=== PATIENT | male | born 1995 | race African-American/Black ===

== ENCOUNTER 2021-10-24 11:16 | Inpatient (IN) | payer OTHER, SELFPAY ==
[2021-10-24] VITALS (14 sets, daily range): BP systolic 105–136; BP diastolic 66–94; PULSE 89–102; RESP 12–18; TEMP 36.7–37.8; O2SAT 96–98; BMI 24.4
--- NOTE | 2021-10-24 11:26 | CT_ITS ---
WS: [id number] CT ANGIOGRAM CEREBRAL AND CAROTID ARTERIES HISTORY: r arm and facial droop TECHNIQUE: CT angiogram is performed of the carotid and cerebral arteries. During arterial injection imaging is obtained from the skull vertex to the aortic arch in 1.25 mm imaging. Coronal and sagittal reformats are submitted. Additional multi planar reformats of the carotid and cerebral arteries are submitted, MIP imaging also reviewed. NASCET criteria utilized. [facility] at least one of these dose optimization techniques: automated exposure control; mA and/or kV adjust ment per patient size (includes targeted exams where dose is matched to clinical indication); or iter ative reconstruction. CONTRAST: Omnipaque 350; 75 mL IV. DLP: 1710.58 mGy.cm COMPARISON: None available. Carotid Angiogram: Right carotid: Common carotid artery: Proximal common carotid artery is normal. Internal carotid artery: No plaque or stenosis. External carotid artery: Patent. Left carotid: Common carotid artery: Arises normally from the aorta. No significant plaque or stenosis. Internal carotid artery: No plaque or stenosis. External carotid artery: Patent. Right vertebral artery: Unremarkable. Left vertebral artery: Unremarkable. Arises normally from the subclavian artery. Subclavian arteries: No stenosis or significant abnormality. Upper thorax: Normal. Thyroid gland: Normal. Prominent bilateral adenoid tissues and tonsils. Bilateral cervical chain reactive lymph nodes. Osseous structures: Unremarkable. CEREBRAL ANGIOGRAM: Intracranial vertebral arteries: Normal with no significant atherosclerosis. Basilar artery: No significant stenosis or occlusion. No aneurysm. Intracranial Internal carotid arteries: Demonstrates no significant stenosis or plaque. Middle cerebral arteries: Focal area of nonenhancement involving the RIGHT M1 segment. Very small hakan iber vessel. Distal to the M1 segment into artery is also very small caliber. No thrombus was identif ied in this location on the CT or the MRI. LEFT MCA is normal caliber. Anterior cerebral arteries and ACOM: Very small caliber RIGHT A1 segment also. There is a small amoun t of flow still present. Normal LEFT A1 and A2 segments. No aneurysm. Posterior cerebral arteries and PCOM's: Normal. Dural venous sinuses are normally enhancing. Mastoid air cells: Normal. Paranasal sinuses: Small mucous retention cysts in the RIGHT maxillary sinus. Calvarium: Normal. CT/CT angio headneck* [id number] IMPRESSION: 1. Occluded RIGHT M1 segment. Very small caliber vessel with no luminal enhanc ement. No acute thrombus was noted on the recent MRI or CT head. This may be du e to spasm or congenitally small artery. The RIGHT A1 segment is also very smal l but there is still enhancement and it is patent. Etiologies to consider are t hrombus, congenitally small artery, arteritis and spasm. 2. No cervical carotid artery stenosis.
--- NOTE | 2021-10-24 11:27 | CT_ITS ---
WS: [id number] CT HEAD NONCONTRAST HISTORY: Symptoms of Acute Stroke TECHNIQUE: Contiguous axial imaging performed through the brain in 2.5 mm imaging. Bone and soft tiss ue windows. Sagittal and coronal reformats reviewed. All CT scans at [facility] use at least one of these dose optimization techniques: automated exposure control; mA and/or kV adjustment per pa tient size (includes targeted exams where dose is matched to clinical indication); or iterative recon struction. DLP: 1367.97 mGy.cm COMPARISON: None available. No acute hemorrhage is identified. There is partial loss of the ruiz-white matter differentiation in the RIGHT frontotemporal region. Moderate-sized area of decreased attenuation in the RIGHT MCA territ ory. In the supraventricular white matter of the RIGHT frontal lobe is an area of greater decreased a ttenuation at 1.5 cm. Underlying mass should be considered due to the young age of the patient. No atrophy or prior infarcts or herniation. Ventricles: Normal size with no hydrocephalus. Paranasal sinuses: As visualized are clear. Mastoid air cells: Well pneumatized. Calvarium and scalp: Skull is intact with no soft tissue edema or swelling. CT/CT head wo con* [id number] IMPRESSION: 1. Edema with loss of the ruiz-white matter differentiation in the RIGHT front otemporal region. No hemorrhage. Infarct versus neoplasm with surrounding edema . Recommend follow-up MRI brain with contrast. 2. No hemorrhage. Notified Charmaine Mascorro MD at 10/24/2021 11:50 AM.
--- NOTE | 2021-10-24 11:27 | ECG_ITS ---
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 Measurements Intervals [place] Rate: 95 P: 87 TX: 136 QRS: 81 QRSD: 82 T: 81 QT: 338 QTc: 426 Interpretive Statements SINUS RHYTHM No previous ECG available for comparison Electronically Signed On 10-24-2021 21:48:48 CDT by Nikki Conn M.D. [email or web address]
--- NOTE | 2021-10-24 11:35 | ED_ITS ---
HPI - General Adult General: Chief complaint: Neuro Symptoms/Deficit Stated complaint: L SIDED WEAKNESS/ FACIAL DROOP Time Seen by Provider: 10/24/21 11:24 History of Present Illness: Patient is a 26-year-old male w/ hx of Asperger's disease and smoking presenting to the emergency room for concerns of left arm weakness, left-sided facial droop, L leg drift and inability to get out of bed. Patient was last seen normal 5 days ago on afternoon. Does not recall what has happened. Since then, patient has not shown up to work. 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 Patient denies any family history of strokes or prior history of stroke or hypercoagulability. Onset: unkonwn Duration:Ongoing Location:home Severity: severe Associated symptoms: Deny chest pain, dyspnea, nausea, rash, palpitations or vomiting Review of Systems 2 Const: Denies: fever(s) or chills Eyes: Denies: change in vision ENMT: Denies: mouth pain Card: Denies: chest pain or palpitations Resp: Denies: dyspnea or non-productive cough GI: Denies: abdominal pain, nausea, vomiting or diarrhea : Denies: dysuria Musc: Denies: extremity pain Skin/Breast: Denies: rash or new lesions Neuro: Reports: weakness in extremities (+L arm weakness, +L facial droop, +L leg drift) Psych: Reports: other (Normal mood) Miguel/Lymph: Denies: easy bruising PFSH ED PFSH: Medical History Asperger's disorder Social History Smoking and tobacco status: current every day smoker Alcohol intake: never Physical Exam Const: COMMON NORMALS: alert HENMT: COMMON NORMALS: atraumatic HEAD & SCALP: atraumatic MOUTH: moist mucous membranes not abnormal Eye: COMMON NORMALS: EOMs intact bilaterally and conjunctivae normal CONJUNCTIVA: Yes conjunctivae normal Neck/C-Spine: COMMON NORMALS: full ROM and supple Resp: COMMON NORMALS: normal respiratory effort and clear to auscultation bilaterally AUSCULTATION: clear to auscultation bilaterally Cardio: COMMON NORMALS: regular rate RATE: regular rate GI: COMMON NORMALS: Soft to palpation and non-tender PALPATION: Yes Soft to palpation Extremity: COMMON NORMALS: full ROM Neuro: SENSORIUM/ORIENTATION: Yes alert OTHER: NEURO: NIHSS: 8 1. Level of Consciousness 0 A) LOC Responsiveness 0 B) LOC Questions 0 C) LOC Commands 0 2. Horizontal Eye Movement 0 3. Visual field test 0 4. Facial Palsy 2 5. Motor Arm 4 6. Motor Leg 1 7. Limb Ataxia 1 8. Sensation 0 9. Language 0 10. Speech 0 11. Extinction and Inattention 0 Psych: COMMON NORMALS: speech normal SPEECH: Yes normal speech MOOD & AFFECT: Yes euthymic mood Course Vital Signs: Vital signs: Vital Signs Temperature 98.0 F 10/24/21 18:06 Pulse Rate 89 10/24/21 18:06 Respiratory Rate 16 10/24/21 18:06 Blood Pressure 115/83 10/24/21 18:06 Pulse Oximetry 97 10/24/21 18:06 MDM - General Adult Medical Decision Making 36-year-old male with a history of smoking presenting to the emergency room with left-sided facial droop, left arm weakness and mild L leg drift with unknown duration. Last seen normal was 5 days ago. Patient does not recall when this happened. NIH stroke scale of [address] head showed right-sided MCA sign. Case was immediately discussed with Dr. Real recommended MRI to evaluate for mass. Patient is not eligible for TPA. MRI showed subacute stroke. CTA showed M1 hyperdensity. Case again was discussed with Dr. Real who recommended transfer for CT perfusion to determine whether patient have a salvageable lesion amenable to mechanical thrombectomy. Mom reported last normal for patient was Friday at 11am when mom called patient on the phone. Case was discussed with Dr. Oliveira from Neurology [facility] at [facility] who agreed with the transfer to [facility] for reassessment and full evaluation. Provider reviewed imaging studies including MRI, CT head/CTA head & neck. Dr. Oliveira informed me that patient would NOT be a candidate for CT perfusion or mechanical thrombectomy since last seen normal was 4 days ago. Patient will admitted for rehabilitation to med/surg floor at [facility]. Disposition: Transfer to outside hospital Lab Data : 10/24/21 12:00 10/24/21 12:00 Radiology Impressions Head/Neck CTA 10/24/21 11:26 IMPRESSION: 1. Occluded RIGHT M1 segment. Very small caliber vessel with no luminal enhancement. No acute thrombus was noted on the recent MRI or CT head. This may be due to spasm or congenitally small artery. The RIGHT A1 segment is also very small but there is still enhancement and it is patent. Etiologies to consider are thrombus, congenitally small artery, arteritis and spasm. 2. No cervical carotid artery stenosis. Head CT 10/24/21 11:27 IMPRESSION: 1. Edema with loss of the ruiz-white matter differentiation in the RIGHT frontotemporal region. No hemorrhage. Infarct versus neoplasm with surrounding edema. Recommend follow-up MRI brain with contrast. 2. No hemorrhage. Notified Charmaine Mascorro MD at 10/24/2021 11:50 AM. Head MRI 10/24/21 11:55 IMPRESSION: 1. Acute moderate size infarct in the RIGHT MCA territory involving the posterior RIGHT frontal lobe including the basal ganglia. No hemorrhage. No mass effect or evidence for mass on this unenhanced examination. 2. No hydrocephalus. Laboratory Results WBC 4.3 10^3/uL (4.0-10.0) 10/24/21 12:00 RBC 4.77 10^6/uL (4.1-5.3) 10/24/21 12:00 Hgb 15.3 g/dL (11.7-16.6) 10/24/21 12:00 Hct 43.0 % (42.0-52.0) 10/24/21 12:00 MCV 90.1 fl (80-94) 10/24/21 12:00 MCH 32.1 pg (28.0-34.0) 10/24/21 12:00 MCHC 35.6 g/dL (30.0-36.0) 10/24/21 12:00 RDW 12.3 % (12.1-15.1) 10/24/21 12:00 Plt Count 239 10^3/cmm (130-400) 10/24/21 12:00 MPV 9.6 fL (7.4-10.4) 10/24/21 12:00 Neut % (Auto) 48.6 % 10/24/21 12:00 Lymph % (Auto) 39.5 % 10/24/21 12:00 [place]urel % (Auto) 11.3 % 10/24/21 12:00 Eos % (Auto) 0.2 % 10/24/21 12:00 Baso % (Auto) 0.2 % 10/24/21 12:00 Neut # (Auto) 2.06 10^3/uL (1.8-7.7) 10/24/21 12:00 Lymph # (Auto) 1.7 10^3/uL (0.8-4.8) 10/24/21 12:00 [place]urel # (Auto) 0.5 10^3/uL (0.2-0.9) 10/24/21 12:00 Eos # (Auto) 0.0 10^3/uL (0.0-0.8) 10/24/21 12:00 Baso # (Auto) 0.0 10^3/uL (0.0-0.1) 10/24/21 12:00 Nucleated RBC % (auto) 0 % 10/24/21 12:00 Nucleated RBCs # 0.0 /100WBC 10/24/21 12:00 PT 15.20 SECONDS (12.1-14.9) H 10/24/21 12:00 INR 1.17 (0.8-1.2) 10/24/21 12:00 APTT 30.8 SECONDS (23.9-36.7) 10/24/21 12:00 Sodium 134 mmol/L (136-145) L 10/24/21 12:00 Potassium 4.5 mmol/L (3.5-5.1) 10/24/21 12:00 Chloride 97 mmol/L (98-107) L 10/24/21 12:00 Carbon Dioxide 28 mmol/L (22-29) 10/24/21 12:00 Anion Gap 13.5 (5-19) 10/24/21 12:00 BUN 10 mg/dL (6-20) 10/24/21 12:00 Creatinine 1.0 mg/dL (0.7-1.2) 10/24/21 12:00 GFR Calculation 109.3 mL/min (90-130) 10/24/21 12:00 Glucose 91 mg/dL (65-115) 10/24/21 12:00 Calculated Osmolality 277 mOsm/kg (285-295) L 10/24/21 12:00 Calcium 9.2 mg/dL (8.5-10.5) 10/24/21 12:00 Total Bilirubin 0.6 mg/dL (0.15-1.2) 10/24/21 12:00 AST 16 U/L (0-40) 10/24/21 12:00 ALT 12 U/L (0-41) 10/24/21 12:00 Alkaline Phosphatase 72 IU/L (40-130) 10/24/21 12:00 Total Protein 8.1 g/dL (6.6-8.7) 10/24/21 12:00 Albumin 4.4 g/dL (3.5-5.2) 10/24/21 12:00 Globulin 3.7 g/dL (1.3-4.6) 10/24/21 12:00 SARS-CoV-2 Ag (Rapid) Negative (Negative) 10/24/21 18:03 Imaging Data Other Imaging: Radiologist's impression: [place] [address] CT Scan Report Signed Patient: Brigitte Yusuf Unit #: [id number] : 1995 Age/Sex: 26 / M ADM Date: 10/24/21 Loc: ER Room/Bed: Attending Dr: Ordering Provider/Ordering MD: Charmaine Mascorro MD Date of Service: 10/24/21 Procedure(s): CT head wo con* [id number] Accession Number(s): [id number] Report Number: [id number] WS: [id number] CT HEAD NONCONTRAST HISTORY: Symptoms of Acute Stroke TECHNIQUE: Contiguous axial imaging performed through the brain in 2.5 mm imaging. Bone and soft tissue windows. Sagittal and coronal reformats reviewed.? All CT scans at [facility] use at least one of these dose optimization techniques: automated exposure control; mA and/or kV adjustment per patient size (includes targeted exams where dose is matched to clinical indication); or iterative reconstruction. DLP: 1367.97 mGy.cm COMPARISON: None available. No acute hemorrhage is identified. There is partial loss of the ruiz-white matter differentiation in the RIGHT frontotemporal region. Moderate-sized area of decreased attenuation in the RIGHT MCA territory. In the supraventricular white matter of the RIGHT frontal lobe is an area of greater decreased attenuation at 1.5 cm. Underlying mass should be considered due to the young age of the patient. No atrophy or prior infarcts or herniation. Ventricles:? Normal size with no hydrocephalus. Paranasal sinuses: As visualized are clear. Mastoid air cells: Well pneumatized. Calvarium and scalp: Skull is intact with no soft tissue edema or swelling. CT/CT head wo con* [id number] IMPRESSION: ? 1.? Edema with loss of the ruiz-white matter differentiation in the RIGHT frontotemporal region. No hemorrhage. Infarct versus neoplasm with surrounding edema. Recommend follow-up MRI brain with contrast. 2.? No hemorrhage. ? Notified Charmaine Mascorro MD at 10/24/2021 11:50 AM. ? ? Dictated By: Regine Ng DO Signed By: Regine Ng DO Signed Date/Time: 10/24/21 1231 DD/ [address] [place] [address] CT Scan Report Signed Patient: Brigitte Yusuf Unit #: [id number] : 1995 Age/Sex: 26 / M ADM Date: 10/24/21 Loc: [facility] Room/Bed: [facility] Attending Dr: Rachael Mckinney MD Ordering Provider/Ordering MD: Charmaine Mascorro MD Date of Service: 10/24/21 Procedure(s): CT angio headneck* [id number] Accession Number(s): [id number] Report Number: [id number] WS: [id number] CT ANGIOGRAM CEREBRAL AND CAROTID ARTERIES HISTORY: r arm and facial droop TECHNIQUE: CT angiogram is performed of the carotid and cerebral arteries. During arterial injection imaging is obtained from the skull vertex to the aortic arch in 1.25 mm imaging. Coronal and sagittal reformats are submitted. Additional multi planar reformats of the carotid and cerebral arteries are submitted, MIP imaging also reviewed. NASCET criteria utilized.? All CT scans at [facility] use at least one of these dose optimization techniques: automated exposure control; mA and/or kV adjustment per patient size (includes targeted exams where dose is matched to clinical indication); or iterative reconstruction. CONTRAST: Omnipaque 350; 75 mL IV. DLP: 1710.58 mGy.cm COMPARISON: None available. Carotid Angiogram: Right carotid: Common carotid artery: Proximal common carotid artery is normal. Internal carotid artery: No plaque or stenosis. External carotid artery: Patent. Left carotid: Common carotid artery: Arises normally from the aorta. No significant plaque or stenosis. Internal carotid artery: No plaque or stenosis. External carotid artery: Patent. Right vertebral artery: Unremarkable. Left vertebral artery: Unremarkable. Arises normally from the subclavian artery. Subclavian arteries: No stenosis or significant abnormality. Upper thorax: Normal. Thyroid gland: Normal. Prominent bilateral adenoid tissues and tonsils. Bilateral cervical chain reactive lymph nodes. Osseous structures: Unremarkable. CEREBRAL ANGIOGRAM: Intracranial vertebral arteries: Normal with no significant atherosclerosis. Basilar artery: No significant stenosis or occlusion. No aneurysm. Intracranial Internal carotid arteries: Demonstrates no significant stenosis or plaque. Middle cerebral arteries: Focal area of nonenhancement involving the RIGHT M1 segment. Very small caliber vessel. Distal to the M1 segment into artery is also very small caliber. No thrombus was identified in this location on the CT or the MRI. LEFT MCA is normal caliber. Anterior cerebral arteries and ACOM: Very small caliber RIGHT A1 segment also. There is a small amount of flow still present. Normal LEFT A1 and A2 segments. No aneurysm. Posterior cerebral arteries and PCOM's: Normal. Dural venous sinuses are normally enhancing. Mastoid air cells: Normal. Paranasal sinuses: Small mucous retention cysts in the RIGHT maxillary sinus. Calvarium: Normal. CT/CT angio headneck* [id number] IMPRESSION: ? 1.? Occluded RIGHT M1 segment. Very small caliber vessel with no luminal enhancement. No acute thrombus was noted on the recent MRI or CT head. This may be due to spasm or congenitally small artery. The RIGHT A1 segment is also very small but there is still enhancement and it is patent. Etiologies to consider are thrombus, congenitally small artery, arteritis and spasm. 2.? No cervical carotid artery stenosis. ? ? Dictated By: Regine Ng DO Signed By: Regine Ng DO Signed Date/Time: 10/24/21 1406 DD/ [address] [place] [address] Magnetic Resonance Report Signed Patient: Brigitte Yusuf Unit #: [id number] : 1995 Age/Sex: 26 / M ADM Date: 10/24/21 Loc: ER Room/Bed: Attending Dr: Ordering Provider/Ordering MD: Charmaine Mascorro MD Date of Service: 10/24/21 Procedure(s): MR head wo con* [id number] Accession Number(s): [id number] Report Number: [id number] WS: [id number] MRI BRAIN WITHOUT CONTRAST HISTORY: possible mass COMPARISON: Noncontrast CT head 10/24/2021. TECHNIQUE: Diffusion imaging, multiplanar T1, T2 and FLAIR imaging obtained. Diffusion-weighted abnormality involving the posterior RIGHT frontal lobe consistent with an acute infarct in the MCA territory. Nonhemorrhagic infarct. No additional infarct. There is no mass effect to suggest an underlying mass. Post contrast examination was not performed. No signal abnormality is noted within the carotid arteries at the skull base. No additional infarcts. Ventricles and extra-axial spaces are normal. No inferior displacement of cerebellar tonsils. The sella turcica and pituitary gland are unremarkable. Dural venous sinuses and [place] of [place] demonstrate no abnormality on this unenhanced studies. Paranasal sinuses: Small mucous retention cysts in the RIGHT maxillary sinus. No air-fluid levels. Mastoid air cells: Normal. Calvarium and scalp: Intact. MR/MR head wo con* [id number] IMPRESSION: ? 1.? Acute moderate size infarct in the RIGHT MCA territory involving the posterior RIGHT frontal lobe including the basal ganglia. No hemorrhage. No mass effect or evidence for mass on this unenhanced examination. 2.? No hydrocephalus. ? ? Dictated By: Regine Ng DO Signed By: Regine Ng DO Signed Date/Time: 10/24/21 1324 DD/ 1319 Discharge Plan Discharge Clinical Impression: Stroke Condition: Stable Prescriptions: No Action No Known Home Medications 0RF Coding Level of Care Code ED Staff Nuclear Medicine Technologist for Chg Fwd Exam Comprehensive
--- NOTE | 2021-10-24 11:55 | MR_ITS ---
WS: [id number] MRI BRAIN WITHOUT CONTRAST HISTORY: possible mass COMPARISON: Noncontrast CT head 10/24/2021. TECHNIQUE: Diffusion imaging, multiplanar T1, T2 and FLAIR imaging obtained. Diffusion-weighted abnormality involving the posterior RIGHT frontal lobe consistent with an acute in farct in the MCA territory. Nonhemorrhagic infarct. No additional infarct. There is no mass effect to suggest an underlying mass. Post contrast examination was not performed. No signal abnormality is no fadi within the carotid arteries at the skull base. No additional infarcts. Ventricles and extra-axial spaces are normal. No inferior displacement of cerebellar tonsils. The sella turcica and pituitary gland are unremarkabl e. Dural venous sinuses and [place] of [place] demonstrate no abnormality on this unenhanced studies. Paranasal sinuses: Small mucous retention cysts in the RIGHT maxillary sinus. No air-fluid levels. Mastoid air cells: Normal. Calvarium and scalp: Intact. MR/MR head wo con* [id number] IMPRESSION: 1. Acute moderate size infarct in the RIGHT MCA territory involving the fitter placer ior RIGHT frontal lobe including the basal ganglia. No hemorrhage. No mass effe ct or evidence for mass on this unenhanced examination. 2. No hydrocephalus.
--- NOTE | 2021-10-24 12:00 | PC.NURSE ---
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
[2021-10-24 12:18] LABS: Basophils % 0.2 %; Eosinophils % 0.2 %; Hemoglobin 15.3 g/dL (11.7-16.6); Lymphocytes # 1.7 10^3/uL (0.8-4.8); Lymphocytes % 39.5 %; Mean Corpuscular HGB Conc 35.6 g/dL (30.0-36.0); Mean Corpuscular Hemoglobin 32.1 pg (28.0-34.0); Mean Corpuscular Volume 90.1 fl (80-94); Mean Platelet Volume 9.6 fL (7.4-10.4); Monocytes # 0.5 10^3/uL (0.2-0.9); Monocytes % 11.3 %; Neutrophils # 2.06 10^3/uL (1.8-7.7); Neutrophils % 48.6 %; Nucleated Red Blood Cells % 0 %; Platelet Count 239 10^3/cmm (130-400); Red Blood Count 4.77 10^6/uL (4.1-5.3); Red Cell Distribution Width 12.3 % (12.1-15.1); White Blood Count 4.3 10^3/uL (4.0-10.0)
[2021-10-24 12:38] LABS: Alanine Aminotransferase 12 U/L (0-41); Albumin Level 4.4 g/dL (3.5-5.2); Alkaline Phosphatase 72 IU/L (40-130); Anion Gap 13.5 (5-19); Aspartate Amino Transferase 16 U/L (0-40); Blood Urea Nitrogen 10 mg/dL (6-20); Calcium 9.2 mg/dL (8.5-10.5); Carbon Dioxide 28 mmol/L (22-29); Chloride 97 mmol/L (98-107); Globulin 3.7 g/dL (1.3-4.6); Glomerular Filtration Rate 109.3 mL/min (90-130); Glucose 91 mg/dL (65-115); Osmolality Calculated 277 mOsm/kg (285-295); Potassium 4.5 mmol/L (3.5-5.1); Sodium 134 mmol/L (136-145); Total Bilirubin 0.6 mg/dL (0.15-1.2); Total Protein 8.1 g/dL (6.6-8.7)
[2021-10-24 13:05] LABS: INR 1.17 (0.8-1.2)
[2021-10-24 13:06] LABS: Partial Thromboplastin Time 30.8 SECONDS (23.9-36.7)
--- NOTE | 2021-10-24 13:26 | P.PNCC_ITS ---
Stroke Alert Activation ED Arrival Date: 10/24/21 Other Last Known Well Infomation: Stroke Team was activated for unclear time of onset and this 26-year-old man who was last definitely known to be well 6 days ago when he worked for his employer. He did not show up to work on Friday and when he failed to show up to work yesterday his employer became concerned. Someone was sent to the hotel where he was staying in town this morning and they could not get him out of bed. Nothing was said about the state of his hygiene but he was clean and dry when he got here. He came by EMS with left sided weakness. I did not talk with EMS and I do not have a note from EMS. Personnel in the ER have talked with his mother and sister, who indicate that the patient lives in [facility] and has been sending his paychecks home to take care of of his family. He has no previous history of stroke. No known medical problems. Mihaela talked with his sister and his mother and they were both enormously upset and could not provide much information. Later there was some discussion that a family member communicated with him several days ago and his speech was not right at that time. I was called by Dr. Brandt and I reviewed the patient's CT of the head that showed edema in the distribution of the right middle cerebral artery. I asked for MRI with and without contrast. Only the without was ordered. I came to the emergency department but the patient had already left for MRI. I saw several other patients and then examined the patient as he was returning from MRI. I reviewed his images with Dr. Galvan and Dr. Ng. I asked Dr. Brandt to order CT angiogram and I later reviewed those images with Dr. Galvan. The patient has diffusely small vasculature and a cut off at M1 of the right middle cerebral artery. I asked Dr. Brandt to discuss this with on-call stroke at [facility] because of the unknown time of onset, restricted vascular distribution and probable thrombus in M1. He was eventually able to do that and they indicated that no work-up for thrombectomy was indicated. He is admitted for diagnosis and rehabilitation Stroke Alert Activated by: Dr. Brandt NIH stroke score 2 NIHSS: Level Of Consciousness - 1a: 1 (Drowsy) Level Of Consciousness Questions - 1b: Both Correct Level Of Consciousness Commands - 1c: Both Correct Best Gaze - 2: Partial Gaze Palsy Visual [place] - 3: No Visual Loss Facial Palsy - 4: Minor Paralysis Motor Arm Right - 5: No Drift Motor Arm Left - 5: Effort Against [place] Motor Leg Right - 6: No Drift Motor Leg Left - 6: Effort Against [place] Limb Ataxia - 7: Absent Sensory - 8: Normal Best Language - 9: No Aphasia Dysarthia - 10: Mild/Moderate Dysarthia Extinction And Inattention - 11: 1 Score: Total Score: 9 Stroke Alert Data/Treatment Time to CT of Head: 11:40 CT Results Time: 11:45 CT Impression: CT scan showed lucency right middle cerebral artery distribution with edema tPA Contraindication: tPA Contraindication: Treatment not indcated and Medical contraindication tPA Admin Prior to Arrival: No Other Information: I was called because this is a 26-year-old man with edema in the right frontal lobe. I talked with Dr. Brandt and I talked with Dr. Ng and we agreed that the best way to approach this initially with MRI brain to rule out a mass. I reviewed his MRI with Dr. Galvan. His abnormalities in the distribution of the right middle cerebral artery anterior branch and is consistent with an ischemic stroke in the right anterior branch of the middle cerebral artery. He has an old lacunar infarct on the left in the caudate. He subsequently had CT angiogram, which suggested possible embolus Right M1 segment. He has diffuse small vessels. I reviewed images with Dr. Galvan who suggested differential diagnosis to include moyamoya, sickle cell disease, c ongenital vascular abnormalities. Nothing about his images would suggest vasculitis. I asked Dr. Brandt to review the case with on-call [facility] stroke neurology and they initially agreed to transfer the patient but then the bed disappeared and I recommended he be admitted here for further evaluation and rehabilitation. Critical Care Time Critical Care Time: 75 - 104 mins Coding Level of Care Code Acute Preventive Medicine Specialist for Latanya Neri
[2021-10-24] MEDS: iohexol 300 mg/mL 100 mL Btl IV (13:40)
[2021-10-24 18:33] LABS: SARS Covid-2 Antigen Negative (Negative)
--- NOTE | 2021-10-24 20:22 | ECG_ITS ---
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 Measurements Intervals [place] Rate: 99 P: 76 TX: 133 QRS: 69 QRSD: 77 T: 69 QT: 332 QTc: 426 Interpretive Statements SINUS RHYTHM NONSPECIFIC T-WAVE ABNORMALITY Compared to ECG 10/24/2021 11:54:27 T-wave abnormality now present Electronically Signed On 10-24-2021 21:17:12 CDT by Nikki Conn M.D. [id number]
--- NOTE | 2021-10-24 20:24 | PM.HP ---
Providers/Chief Complaint Chief Complaint: L SIDED WEAKNESS/ FACIAL DROOP History of Present Illness The patient is a 26-year-old male who was transferred to the emergency department due to slurred speech and left facial droop.? Please note that the patient is a poor historian.? As noted that he has a history of Asperger syndrome.? Upon questioning, the patient denies diplopia, blurry vision, dysphasia, dysphagia, paresthesia/anesthesia/myasthenia of any part of his body.? He denies headache.? Indicates that he was told that he was slurring his speech.? He denies chest pain, dyspnea, lightheaded, dizziness, diaphoresis, palpitations, sensation of rapid heartbeat, sensation of irregular heartbeat, headache.? He presents for further evaluation Review of Systems General: Reports: 10 or more systems reviewed and unremarkable except in HPI and below Medications/Allergies Home Medications Medication Instructions Recorded Confirmed Last Taken Type No Known Home Medications 10/24/21 10/24/21 Unknown History Allergies Allergy/AdvReac Type Severity Reaction Status Date / Time No Known Allergies Allergy Unverified 10/24/21 12:00 PFSH Acute PFSH: Medical History Asperger's disorder Social History Smoking and tobacco status: current every day smoker Alcohol intake: never Vitals/I&O/Wt Last Vital Signs Temp 98.0 F 10/24/21 18:06 Pulse 89 10/24/21 18:06 Resp 16 10/24/21 18:06 BP 115/83 10/24/21 18:06 Pulse Ox 97 10/24/21 18:06 Weight last 48 hrs Weight 81.647 kg Physical Exam Narrative: General: -Alert -No acute distress -No dyspnea -No tachypnea Head: -Atraumatic -Normocephalic Eyes: -Pupils equally round and reactive to light and accommodation -Extraocular muscles intact Neurological: -Cranial nerves II-XII intact Neck: -No jugular venous distention -No thyromegaly -No cervical lymphadenopathy Heart: -Regular rate -Regular rhythm -No murmurs -No gallops -No rubs Lungs: -No wheeze -No rhonchi -No rales ? Abdomen: -Normal bowel sounds in all four quadrants -No rebound -No guarding -No tenderness Extremities: -2/4 pulse in all four extremities -No clubbing -No cyanosis -No edema -No calf tenderness present bilaterally -Negative Corinna?s sign bilaterally Musculoskeletal: -5/5 bilateral upper extremity strength -5/5 bilateral lower extremity strength -Sensorium of bilateral upper extremities are equal and intact -Sensorium of bilateral lower extremities are equal and intact ? Additional Details / Additional Findings / Exceptions / Miscellaneous: Data : 10/24/21 12:00 10/24/21 12:00 A&P Assessment and plan (1) Stroke: Status: Acute Plan CVA: Right MCA infarct. Tele-neurology has evaluated the patient. Will monitor the patient on telemetry and checks her cardiac enzymes. Check TSH, free T4, B12, folate, magnesium level. In the morning we will check fasting lipid panel and recheck EKG. Neuro checks every 4 hours. Urinalysis pending. Urine drug screen pending. Echo cardiac pending. Physical therapy consult pending. Speech pathology consult pending. Aspirin 325 Mill cans by mouth daily plus Plavix and 5 Mill grams by mouth daily plus IV normal saline at 75 ML's per hour. Per the emergency department physician who spoke with neurologist, the neurologist did not recommend initiating statin at this time and did not recommend anticoagulation History of CVA, per CT have head of the brain Asperger syndrome Smoker. The patient becomes regarding smoking cessation DVT Proflex is. Bilateral SCD Attestations Medical Necessity Statement*: the patient's anticipate length of stay is gram than 2 midnights for evaluation and treatment of CVA Coding Level of Care Code Acute Web Mobile Designer for Latanya Neri Diagnoses Stroke I63.9
[2021-10-24 21:33] LABS: Glucose Point of Care 125 mg/dL (70-110)
[2021-10-24 21:41] LABS: Troponin(5th) Baseline 6 ng/L (0-15)
[2021-10-24 21:51] LABS: Protein Urine Neg (Negative); Specific Gravity, Urine 1.015 (1.005-1.030); Urine Appearance Clear (CLEAR); Urine Color Dark Yellow (Yellow); pH Urine 6.5 (5-7)
[2021-10-24 21:52] LABS: Add Urine Culture? Yes; Add Urine Microscopic? YES; Bacteria Urine TRACE /hpf; Bilirubin Urine 1+ (Negative); Blood Urine Neg (Negative); Glucose Urine UA Norm (Normal); Ketones Urine 2+ (Negative); Leukocyte Esterase Urine Trace (Negative); Mucus Urine 1+ /hpf; Nitrate Urine Negative (Negative); RBC Urine 0-4 /hpf (0-2); Squamous Epithelial Cell Urine 0-4 /hpf (0-5); Urobilinogen Urine 4 mg/dL (Negative); WBC Urine 25-40 /hpf (0-5)
[2021-10-24 21:56] LABS: Amphetamines Screen Urine Negative (Negative); Barbiturates Screen Urine Negative (Negative); Benzodiazepines Screen Urine Negative (Negative); Cocaine Screen Urine Negative (Negative); Opiate Screen Urine Negative (Negative); PCP Screen Urine Negative (Negative); THC Screen Urine Positive (Negative)
[2021-10-24 21:59] LABS: Magnesium 2.2 mg/dL (1.7-2.3); Thyroid Stimulating Hormone 0.64 uIU/mL (0.27-4.20); Vitamin B12 329 pg/mL (232-1245)
[2021-10-24 23:05] LABS: Glucose Point of Care 95 mg/dL (70-110)
[2021-10-24 23:16] LABS: Folate Level 13.2 ng/mL (4.5-32.2)
[2021-10-24] MEDS: sodium chloride 0.9% 1,000 ML 75 ML IV (23:26)
[2021-10-25] VITALS (7 sets, daily range): BP systolic 104–131; BP diastolic 65–89; PULSE 86–98; RESP 14–18; TEMP 36.4–37.1; O2SAT 93–99
--- NOTE | 2021-10-25 00:22 | USCV_ITS ---
Brigitte Yusuf Age: 26 Gender: M : 1995 Exam Date: 10/25/2021 00:27 Ordering Phys: Asa Navarro DO Technologist: ALBERTO Exam Location: [facility] [place] Indication: CVA BP: / HR: 90 Rhythm: Sinus Technical Quality: Adequate MEASUREMENTS (Male / Female) Normal Values 2D ECHO LV Diastolic Diameter PLAX 4.2 cm 4.2 - 5.9 / 3.9 - 5.3 cm LV Systolic Diameter PLAX 3.1 cm IVS Diastolic Thickness 1.1 cm 0.6 - 1.0 / 0.6 - 0.9 cm IVS Systolic Thickness 1.1 cm LVPW Diastolic Thickness 1.0 cm 0.6 - 1.0 / 0.6 - 0.9 cm LVPW Systolic Thickness 1.7 cm LVOT Diameter 1.5 cm LV Ejection Fraction 2D Teich 51.2 % LV Ejection Fraction MOD 2C 38.2 % LV Ejection Fraction 2C AL 38.0 % LA Diameter 2.8 cm LA Width 2.9 cm LA Height 4.0 cm RA Width 3.0 cm RA Height 3.3 cm IVC Diameter 1.6 cm M-MODE MV E Point Septal Separation 1.5 cm DOPPLER AV Peak Velocity 84.8 cm/s LVOT Peak Velocity 63.0 cm/s AV Area Cont Eq vti 1.2 cm squared AV Area Cont Eq pk 1.3 cm squared MV Peak Velocity 66.0 cm/s MV Area PHT 3.4 cm squared Mitral E to A Ratio 1.6 MV E' Velocity 64.0 cm/s Mitral E to LV E' Septal Ratio 12.4 TR Peak Velocity 66.8 cm/s TR Peak Gradient 1.8 mmHg TR Mean Velocity 41.8 cm/s TR Mean Gradient 0.8 mmHg TR Velocity Time Integral 11.2 cm Right Atrial Pressure 10.0 mmHg Pulmonary Artery Systolic Pressu 11.8 mmHg FINDINGS Left Ventricle Normal left ventricular size. LV systolic function is normal with EF of 50-55%. No regional wall motion abnormalities. Right Ventricle The right ventricle is normal in size and function. Right Atrium The right atrium is normal in size. Left Atrium The left atrium is normal in size. Mitral Valve Grossly normal without significant stenosis or prolapse. There is no mitral regurgitation. Aortic Valve Grossly normal. No significant stenosis or regurgitation. Tricuspid Valve Not well visualized without significant stenosis or regurgitation. Pulmonic Valve Not well visualized Pericardium Normal pericardium without effusion. Aorta Normal ascending aorta dimension. IVC CONCLUSIONS Technically limited echocardiogram because of poor ultrasonic windows LV systolic function is normal with EF of 50-55% No gross valvular abnormalities No comparison studies are available Marlon Heard MD (Electronically Signed) Final Date: 25 Oct 2021 19:23 S
[2021-10-25 00:23] LABS: Free T4 Free Thyroxine 1.16 ng/dL (0.82-1.77)
[2021-10-25] MEDS: clopidogrel 75 mg Tablet PO ×2 (00:30→08:45)
--- NOTE | 2021-10-25 02:22 | ECG_ITS ---
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 Measurements Intervals [place] Rate: 92 P: 75 AL: 136 QRS: 47 QRSD: 85 T: 59 QT: 323 QTc: 401 Interpretive Statements SINUS RHYTHM NONSPECIFIC ST & T-WAVE ABNORMALITY Compared to ECG 10/24/2021 20:47:25 No significant changes Electronically Signed On 10-25-2021 22:28:16 CDT by Marlon Heard M.D. [id number]
[2021-10-25 03:33] LABS: Troponin 5 2HR 7.62 ng/L (0-15)
[2021-10-25 04:35] LABS: Troponin 5 2HR Delta 1.62 ABS# (0-10)
[2021-10-25 06:05] LABS: Glucose Point of Care 74 mg/dL (70-110)
[2021-10-25 07:03] LABS: Cholesterol 122 mg/dL (0-200); HDL Cholesterol 20 mg/dL (60-100); LDL Cholesterol Calculated 81 mg/dL (50-129); LDL HDL Ratio 4.05 RATIO (0.00-3.22); Triglycerides 106 mg/dL (0-150)
[2021-10-25 07:04] LABS: Troponin 5 6HR 6.36 ng/L (0-15)
[2021-10-25 07:12] LABS: Troponin 5 6HR Delta 0.36 ng/L (0-12)
--- NOTE | 2021-10-25 08:11 | USCV_ITS ---
Brigitte Yusuf Age: 26 Gender: M : 1995 Exam Date: 10/25/2021 09:00 Ordering Phys: Rachael Mckinney MD Technologist: Aislinn Curiel [place] [facility] [place]ication: Rule out DVT HISTORY: H/o Stroke PROCEDURES: Venous duplex imaging was performed in bilateral lower extremities. The following venous structures were evaluated: common femoral vein, profunda vein, proximal portion of the greater saphenous vein, superficial femoral vein, and the popliteal vein. In addition, the posterior tibial and peroneal trunk were evaluated. FINDINGS: TDS Age indeterminate thrombus in the Rt GSV ankle that extends to the proximal thigh. There appears to be thrombus in the Lt CFV and possibly the deep profunda. All other imaged veins appear compressible and free of thrombus where seen. Normal inguinal lymph nodes. CONCLUSIONS Technically difficult exam. Left GSV thrombophlebitis. Right common and probable profunda DVT. Dr. Regine Ng DO (Electronically Signed) Final Date: 25 Oct 2021 10:31 S
[2021-10-25] MEDS: aspirin 325 mg EC Tablet PO (08:45)
[2021-10-25 09:03] LABS: INR 1.21 (0.8-1.2)
[2021-10-25 09:04] LABS: Partial Thromboplastin Time 30.5 SECONDS (23.9-36.7)
[2021-10-25 09:07] LABS: D Dimer 3.99 ug/mIFEU (0-0.59)
[2021-10-25 09:09] LABS: Fibrinogen 236 mg/dL (174-498)
[2021-10-25] MEDS: dextrose 5%-sod chloride 0.9% 1,000 ML 75 ML IV (09:23)
[2021-10-25 09:44] LABS: Platelet Count 214 10^3/cmm (130-400)
--- NOTE | 2021-10-25 10:11 | PC.CHAP ---
Pastoral Care Encounter/Spiritual Assessment Type of Contact [x] Declined machine operator slitter technician visit [] Patient/Family/Request visit [] Outpatient visit [] Follow-up visit [] Physician referral [] Code/Alert [x] Routine visit [] Staff referral [] Actively dying [] Patient sleeping [] Family support [] [] Out of room [] Palliative care [] [x] Receiving care in room [] Pre-surgical visit [] Trauma [] Long length of stay [] ICU visit [] Other: Relational/Emotional Strength [] Patient feels connected with others/family/visitors/staff [] Distress [] Loneliness/isolation [] Abandonment Spirituality of Patient [] Person of Simi [] Attends Jew of their Simi [] Believes in Prayer [] Reads Bible or Yazidism materials [] There are Spiritual issues to be addressed Lastex Thread Winder Interventions [] Prayer [] Active listening [] Non-anxious presence [] Spiritual/emotional support [] Crisis/trauma care [] Spiritual counseling [] Bereavement support [] Provided bereavement packet [] Provided Bible/devotional materials [] Provided toy/stuffed animal, coloring book to patient or family member [] Provided Communion [] Anointing/[place] [] Salvation [] Completed spiritual assessment [] Other: Impact on Illness or Injury [] Angry [] Fearful [] Anxious [] Often cries [] Exhaustion [] Unable to work [] Unable to attend denominational [] Unable to walk/stand [] Unable to read [] Unable to drive [] Unable to eat/drink [] Unable to sleep [] Unable to be with family [] Patient intubated [] Other: Summary Declined machine operator slitter technician visit Time spent with patient 5 mins
--- NOTE | 2021-10-25 10:35 | CT_ITS ---
WS: [id number] CT CHEST, ABDOMEN AND PELVIS WITH CONTRAST. HISTORY: r/o malignancy TECHNIQUE: Contiguous 5 mm axial imaging performed through the chest, abdomen and pelvis with IV cont rast, oral contrast has been provided. Only minimal oral contrast. Coronal and sagittal reformats zuleyma st. Coronal and sagittal reformats through the abdomen and pelvis. All CT scans at [facility] use at least one of these dose optimization techniques: automated exposure control; mA and/or kV adj ustment per patient size (includes targeted exams where dose is matched to clinical indication); or i terative reconstruction. CONTRAST: Omnipaque 300; 50 mL IV. DLP: 1056.99 mGy.cm COMPARISON: None available. Chest CT: Lungs are clear. No pneumothorax, pneumonia, pulmonary nodule or mass. Heart is normal size . No pericardial effusion. Normal appearance of the thoracic aorta in the proximal great vessels. Nor mal size pulmonary artery. Small mildly prominent axillary lymph nodes. No hiatal hernia. Collateral vessels are noted around the RIGHT shoulder and RIGHT clavicle. The SVC demonstrates admixed contrast and blood. No complete occlusion. Abdomen CT: Normal size liver and spleen. No enhancing masses. Gallbladder, pancreas and adrenal glan ds are negative. The pancreas is very difficult to visualize within its entirety due to crowding of s tructures in the abdomen. Loops of small bowel and colon are not completely distended with oral contr ast. Increased lymph node size would be difficult to exclude. No significant retroperitoneal lymph no hiram are identified. The enhancement of the kidneys and visceral organs is consistent with a limited I V contrast dose provided. No GI tract obstruction. Pelvic CT: No free fluid in the pelvis. Urinary bladder is well distended. Moderate fecal retention a t the rectum. No adenopathy is identified. CT/CT chest abd pel w con* IMPRESSION: 1. No pulmonary mass or nodule or adenopathy in the chest. Axillary lymph node s are very minimally prominent. 2. No splenomegaly. 3. It would be difficult to exclude lymph nodes within the mesentery and retro peritoneum. There is confluent soft tissue which is probably nonopacified GI tr act. There is no ascites or retroperitoneal adenopathy. 4. No osseous lesions. 5. Numerous collateral vessels around the RIGHT upper extremity shoulder and c lavicle. No occlusions are identified. Consider ultrasound evaluation of the RI GHT upper extremity venous system. Partial thrombus may be present in the subcl abundio vein.
--- NOTE | 2021-10-25 10:37 | P.PN_ITS ---
Subjective Subjective: Seen this AM. No acute events overnight. He will be seen by speech therapy today. Patient was unable to be transferred to [facility] due to bed not being available there. Venous Dopplers are pending. He does not offer any complaints. Vitals/I&O/Wt Last Vital Signs Temp 98.6 F 10/25/21 07:45 Pulse 93 10/25/21 07:45 Resp 14 10/25/21 07:45 BP 104/71 10/25/21 07:45 Pulse Ox 97 10/25/21 07:45 10/24/21 10/25/21 10/25/21 22:59 06:59 14:59 Intake Total 130 / 130 747.5 / 747.5 Output Total 400 / 400 Balance -270 / -270 747.5 / 747.5 Weight last 48 hrs Weight 73.21 kg Weight 86.183 kg Weight 72.847 kg Weight 81.647 kg Physical Exam Narrative: General: Alert oriented x3, patient seen laying in bed appearing comfortable at this time. HEENT: Normocephalic, atraumatic, EOMI, left facial droop noted Cardio: Regular rate rhythm, normal S1-S2, no murmurs rubs gallops, Respiratory: Good bilateral air entry, no wheezes no rhonchi appreciated GI: Abdomen soft, nontender, nondistended, bowel sounds + Extremities: Pulses 2+, no edema, no cyanosis Neuro: Right leg 4-5, left leg 2 out of 5, left facial droop present, [id number] normal, slurred speech present, patient doesnt like to talk very much. Very difficult to assess. Left upper extremity 3/5 weaker compared to right. Skin: A lot of tattoos present Data : 10/25/21 08:32 10/24/21 12:00 A&P Assessment and plan (1) Stroke: Status: Acute (2) DVT (deep venous thrombosis): Status: Acute Plan #Subacute MCA stroke #Bilateral DVT #No other known past medical history #Reports history of Asperger syndrome -We will do hypercoagulable work-up ? Anticardiolipin antibody, lupus, DERRICK, dimer, protein C, protein S ? Check Doppler bilateral lower extremity rule out DVT. Bilateral DVT present great saphenous vein, although up to common femoral vein, profunda. ? Check chest abdomen CT pelvis with IV contrast to rule out malignancy -Continue aspirin 81, stop Eliquis, Eliquis 10 twice daily for 7 days and then 5 twice daily indefinitely. Discussed with Dr. Real, patient does not have any atherosclerosis but we will start on atorvastatin 40 daily instead of 80. ? Check echo to rule out PFO, complete but report pending -Speech swallow eval. Patient does have dysphagia and had trouble with pur?ed foods. Thickened liquids have been recommended at this point. -PT OT assessment ordered. -As per neurologist discussion with radiologist patient's brain vasculature is somewhat abnormal and there is suspicion of a congenital etiology. He will need further assessment by neurology in [facility] once he goes back. Full code ? We will update family today over the phone Attestations Medical Necessity Statement*: Greater than 24 to 48-hour stay Coding Level of Care Code Acute Bed Placement Coordinator for Chg Fwd Diagnoses Stroke I63.9 DVT (deep venous thrombosis) I82.409
--- NOTE | 2021-10-25 10:50 | PC.NURSE ---
Patients aunt and mother each called for an update. Updated both and requested to communicate together for updates. Aunt has approval for updates in patients physical chart.
--- NOTE | 2021-10-25 10:59 | PC.PT ---
Per rounds, physician requests to hold PT today secondary to recent discovery of (B)DVT. Will reattempt tomorrow.
[2021-10-25] MEDS: iohexol 300 mg/mL 100 mL Btl IV (13:57)
--- NOTE | 2021-10-25 15:44 | USCV_ITS ---
Brigitte Yusuf Age: 26 Gender: M : 1995 Exam Date: 10/25/2021 21:11 Ordering Phys: Rachael Mckinney MD Technologist: ALBERTO [place]am [place]: [facility] [place] Indication: Rule Out DVT post CVA PROCEDURES: Venous duplex imaging was performed in bilateral upper extremities. The following venous structures were evaluated: internal jugular vein, subclavian vein, axillary vein, and brachial veins. In addition, the basilic vein, cephalic vein, radial vein, and ulnar vein. Serial compression, augmentation maneuvers, and spectral Doppler flow evaluation were performed. FINDINGS: Difficult exam as patient is not able to cooperate. Right cephalic vein and basilic veins are occluded. Left basilic vein is occcluded. The remaining vein are patent althought evaluation suboptimal due to difficult exam. CONCLUSIONS Thrombus with occlusion involving the right cephalic vein and basilic veins and the left basilic vein. Dr. Regine Ng DO (Electronically Signed) Final Date: 26 Oct 2021 07:25 S
[2021-10-25 17:56] LABS: Glucose Point of Care 113 mg/dL (70-110)
--- NOTE | 2021-10-25 18:18 | PC.NURSE ---
Patient AAOx3, VSS, left side facial drooping and LUE flaccid with LLE Severe weakness. Patient attempted to get OOB on his own without assist and almost fell, staff redirected patient to continue to be in bed or chair with alarm and alarm reset. Spoke with mother and aunt few times throughout shift. Both state they will be here tomorrow. Room clean and clutter free with call light in reach and bed alarm on.
--- NOTE | 2021-10-25 19:00 | PM.PN ---
Subjective Subjective: Patient has been more alert today. I talked with Dr. Mckinney earlier in the day. She noticed swelling in the legs and discovered that he has diffuse DVTs throughout the venous systems of both legs. We agreed that he should be on Eliquis and stop clopidogrel. There is no reason for him to be on atorvastatin as he does not have atherosclerotic disease. Vitals/I&O/Wt Last Vital Signs Temp 97.5 F L 10/25/21 16:00 Pulse 93 10/25/21 16:00 Resp 16 10/25/21 16:00 BP 131/89 10/25/21 16:00 Pulse Ox 98 10/25/21 16:00 10/25/21 10/25/21 10/25/21 06:59 14:59 22:59 Intake Total 130 / 130 981.25 / 981.25 100 / 1081.25 Output Total 400 / 400 Balance -270 / -270 981.25 / 981.25 100 / 1081.25 Weight last 48 hrs Weight 161 lb 6.4 oz Weight 190 lb Weight 160 lb 9.6 oz Weight 180 lb Data : 10/25/21 08:32 10/24/21 12:00 A&P Assessment and plan (1) Acute right arterial ischemic stroke, middle cerebral artery (MCA): 26-year-old man who presented with anterior branch right middle cerebral artery stroke. He has diffusely small vasculature intracranially. He has an old lacunar infarct on the left that I think is of no significance in the current setting. He was discovered by Dr. Mckinney to have diffuse clotting of his lower extremity veins from top to bottom. Clearly he has a hypercoagulable state. It is hard to know whether his DVT is developed as a result of his laying in bed for multiple days or whether he could have had a paradoxical embolus. His stroke work-up is in progress for causes of hypercoagulable state. His D-dimer was markedly elevated at 3.99. Lupus anticoagulant and connective tissue studies pending. It looks like he has a urinary tract infection. Dr. Faye Thompsonum is in progress of looking for underlying cancer as a cause for hypercoagulability. He might be able to return to [facility] for further work-up if his family comes to get him. I would plan on discharging him on apixaban. If he stays here I am going to want to see him in my office in a week. Status: Acute (2) Cerebral vascular disease: Status: Acute (3) DVT (deep venous thrombosis): Status: Acute Attestations Medical Necessity Statement*: Severe stroke in a young person Coding Level of Care Code Acute Felt Machine Mechanic for Latanya Neri Diagnoses Acute right arterial ischemic stroke, middle cerebral artery (MCA) I63.511 Cerebral vascular disease I67.9 DVT (deep venous thrombosis) I82.409
[2021-10-25] MEDS: apixaban 5 mg Tablet 10 MG PO (20:38)
[2021-10-25] MEDS: atorvastatin 40 mg Tablet PO (20:38)
--- NOTE | 2021-10-25 21:20 | PM.CONSULT ---
Providers/Reason For Consult Consulting Physician/Specialty*: CA Maya/audiology Reason for Consult*: Patient with a CVA/consider SHANIQUE to rule out cardiac source of embolization Requesting Physician: Dr. Mckinney Attending Physician: Rachael Mckinney MD History of Present Illness History of Present Illness Brigitte Yusuf is a 26 year old male admitted to the hospital with left-sided weakness. He had a transthoracic cardiogram which was a suboptimal quality. Cardiology is consulted to consider SHANIQUE to evaluate for any cardiac source of embolization. Patient has no difficulty in swallowing. No history of a GI bleed. Denies any abdominal pain. Medications/Allergies Home Medications Medication Instructions Recorded Confirmed Last Taken Type No Known Home Medications 10/24/21 10/24/21 Unknown History Allergies Allergy/AdvReac Type Severity Reaction Status Date / Time No Known Allergies Allergy Unverified 10/24/21 12:00 Current Medications Generic Name Dose Route Start Last Admin Trade Name Freq PRN Reason Stop Dose Admin Apixaban 10 mg 10/25/21 21:00 10/25/21 20:38 Apixaban 5 Mg Tablet PO 11/01/21 20:59 10 mg BID@0900,2100 LUISANA Administration Atorvastatin Calcium 40 mg 10/25/21 21:00 10/25/21 20:38 Atorvastatin 40 Mg Tablet PO 40 mg BEDTIME LUISANA Administration PFSH Acute PFSH: Medical History Asperger's disorder Social History Smoking and tobacco status: current every day smoker Alcohol intake: never Substance/Drug Use: never Vitals/I&O/Wt Last Vital Signs Temp 97.5 F L 10/25/21 16:00 Pulse 93 10/25/21 16:00 Resp 16 10/25/21 16:00 BP 131/89 10/25/21 16:00 Pulse Ox 98 10/25/21 16:00 10/25/21 10/25/21 10/25/21 06:59 14:59 22:59 Intake Total 130 / 130 981.25 / 981.25 100 / 1081.25 Output Total 400 / 400 Balance -270 / -270 981.25 / 981.25 100 / 1081.25 Weight last 48 hrs Weight 161 lb 6.4 oz Weight 190 lb Weight 160 lb 9.6 oz Weight 180 lb Physical Exam Narrative: The patient alert and oriented x3. HEENT is unremarkable. Chest examination revealed normal breath sounds with no rales or rhonchi. Heart sounds are normal with no S3 or S4. Abdomen is soft and nontender. Extremities-no edema cyanosis. Data : 10/26/21 03:36 10/26/21 03:36 Other Labs: Laboratory Last Values WBC 4.3 10^3/uL (4.0-10.0) 10/24/21 12:00 RBC 4.77 10^6/uL (4.1-5.3) 10/24/21 12:00 Hgb 15.3 g/dL (11.7-16.6) 10/24/21 12:00 Hct 43.0 % (42.0-52.0) 10/24/21 12:00 MCV 90.1 fl (80-94) 10/24/21 12:00 MCH 32.1 pg (28.0-34.0) 10/24/21 12:00 MCHC 35.6 g/dL (30.0-36.0) 10/24/21 12:00 RDW 12.3 % (12.1-15.1) 10/24/21 12:00 Plt Count 214 10^3/cmm (130-400) 10/25/21 08:32 MPV 9.6 fL (7.4-10.4) 10/24/21 12:00 Neut % (Auto) 48.6 % 10/24/21 12:00 Lymph % (Auto) 39.5 % 10/24/21 12:00 Winston % (Auto) 11.3 % 10/24/21 12:00 Eos % (Auto) 0.2 % 10/24/21 12:00 Baso % (Auto) 0.2 % 10/24/21 12:00 Neut # (Auto) 2.06 10^3/uL (1.8-7.7) 10/24/21 12:00 Lymph # (Auto) 1.7 10^3/uL (0.8-4.8) 10/24/21 12:00 Winston # (Auto) 0.5 10^3/uL (0.2-0.9) 10/24/21 12:00 Eos # (Auto) 0.0 10^3/uL (0.0-0.8) 10/24/21 12:00 Baso # (Auto) 0.0 10^3/uL (0.0-0.1) 10/24/21 12:00 Nucleated RBC % (auto) 0 % 10/24/21 12:00 Nucleated RBCs # 0.0 /100WBC 10/24/21 12:00 PT 15.60 SECONDS (12.1-14.9) H 10/25/21 08:32 INR 1.21 (0.8-1.2) H 10/25/21 08:32 APTT 30.5 SECONDS (23.9-36.7) 10/25/21 08:32 Fibrinogen 236 mg/dL (174-498) 10/25/21 08:32 D-Dimer 3.99 ug/mIFEU (0-0.59) H 10/25/21 08:32 Sodium 134 mmol/L (136-145) L 10/24/21 12:00 Potassium 4.5 mmol/L (3.5-5.1) 10/24/21 12:00 Chloride 97 mmol/L (98-107) L 10/24/21 12:00 Carbon Dioxide 28 mmol/L (22-29) 10/24/21 12:00 Anion Gap 13.5 (5-19) 10/24/21 12:00 BUN 10 mg/dL (6-20) 10/24/21 12:00 Creatinine 1.0 mg/dL (0.7-1.2) 10/24/21 12:00 GFR Calculation 109.3 mL/min (90-130) 10/24/21 12:00 Glucose 91 mg/dL (65-115) 10/24/21 12:00 POC Glucose 113 mg/dL (70-110) H 10/25/21 17:40 Calculated Osmolality 277 mOsm/kg (285-295) L 10/24/21 12:00 Calcium 9.2 mg/dL (8.5-10.5) 10/24/21 12:00 Magnesium 2.2 mg/dL (1.7-2.3) 10/24/21 20:22 Total Bilirubin 0.6 mg/dL (0.15-1.2) 10/24/21 12:00 AST 16 U/L (0-40) 10/24/21 12:00 ALT 12 U/L (0-41) 10/24/21 12:00 Alkaline Phosphatase 72 IU/L (40-130) 10/24/21 12:00 Troponin T Baseline 6 ng/L (0-15) 10/24/21 20:22 Troponin T 120 Minute 7.62 ng/L (0-15) 10/25/21 01:57 Delta Troponin T 1.62 ABS# (0-10) 10/25/21 01:57 Troponin T Hi Sens 6Hr 6.36 ng/L (0-15) 10/25/21 06:07 Troponin T Hi Sens 6Hr Delta 0.36 ng/L (0-12) 10/25/21 06:07 Total Protein 8.1 g/dL (6.6-8.7) 10/24/21 12:00 Albumin 4.4 g/dL (3.5-5.2) 10/24/21 12:00 Globulin 3.7 g/dL (1.3-4.6) 10/24/21 12:00 Triglycerides 106 mg/dL (0-150) 10/25/21 06:07 Cholesterol 122 mg/dL (0-200) 10/25/21 06:07 LDL Cholesterol, Calc 81 mg/dL (50-129) 10/25/21 06:07 HDL Cholesterol 20 mg/dL (60-100) L 10/25/21 06:07 LDL/HDL Ratio 4.05 RATIO (0.00-3.22) H 10/25/21 06:07 Cholesterol/HDL Ratio 6.10 mg/dL (1.0-5.00) H 10/25/21 06:07 Vitamin B12 329 pg/mL (232-1245) 10/24/21 20: Folate 13.2 ng/mL (4.5-32.2) 10/24/21 22:25 TSH 0.64 uIU/mL (0.27-4.20) 10/24/21 20: Free T4 1.16 ng/dL (0.82-1.77) 10/24/21 20: Urine Color Dark yellow (Yellow) 10/24/21 21: Urine Appearance Clear (CLEAR) 10/24/21: Urine pH 6.5 (5-7) 10/24/21 21: Ur Specific [place] 1.015 (1.005-1.030) 10/24/21 21: Urine Protein Neg (Negative) 10/24/21 21: Urine Glucose (UA) Norm (Normal) 10/24/21 21: Urine Ketones 2+ (Negative) H 10/24/21 21: Urine Blood Neg (Negative) 10/24/21: Urine Nitrate Negative (Negative) 10/24/21: Urine Bilirubin 1+ (Negative) H 10/24/21 21: Urine Urobilinogen 4 mg/dL (Negative) H 10/24/21 21: Ur Leukocyte Esterase Trace (Negative) H 10/24/21: Urine RBC 0-4 /hpf (0-2) H 10/24/21: Urine WBC 25-40 /hpf (0-5) H 10/24/21: Ur Squamous Epith Cells 0-4 /hpf (0-5) H 10/24/21 21: Amorphous Sediment Not Reportable 10/24/21 21: Urine Bacteria Trace /hpf (NONE) 10/24/21 21: Urine Mucus 1+ /hpf 10/24/21 21: Urine Opiates Screen Negative ng/mL (Negative) 10/24/21 21: Ur Barbiturates Screen Negative ng/mL (Negative) 10/24/21 21: Ur Phencyclidine Scrn Negative ng/mL (Negative) 10/24/21 21: Ur Amphetamines Screen Negative ng/mL (Negative) 10/24/21 21: U Benzodiazepines Scrn Negative ng/mL (Negative) 10/24/21 21: Urine Cocaine Screen Negative ng/mL (Negative) 10/24/21 21: U Marijuana (THC) Screen Positive ng/mL (Negative) H 10/24/21 21: SARS-CoV-2 Ag (Rapid) Negative (Negative) 10/24/21 18:03 Echo: My impression: Echocardiogram done on 10/25/2021 Technically limited echocardiogram because of poor ultrasonic ?windows ?LV systolic function is normal with EF of 50-55% ?No gross valvular abnormalities ?No comparison studies are available EKG 1: My Interpretation: Normal sinus rhythm with a nonspecific ST-T changes EKG computer-generated impression: Head/Neck CTA 10/24/21 11:26 IMPRESSION: 1. Occluded RIGHT M1 segment. Very small caliber vessel with no luminal enhancement. No acute thrombus was noted on the recent MRI or CT head. This may be due to spasm or congenitally small artery. The RIGHT A1 segment is also very small but there is still enhancement and it is patent. Etiologies to consider are thrombus, congenitally small artery, arteritis and spasm. 2. No cervical carotid artery stenosis. Head CT 10/24/21 11:27 IMPRESSION: 1. Edema with loss of the ruiz-white matter differentiation in the RIGHT frontotemporal region. No hemorrhage. Infarct versus neoplasm with surrounding edema. Recommend follow-up MRI brain with contrast. 2. No hemorrhage. Notified Charmaine Mascorro MD at 10/24/2021 11:50 AM. Head MRI 10/24/21 11:55 IMPRESSION: 1. Acute moderate size infarct in the RIGHT MCA territory involving the posterior RIGHT frontal lobe including the basal ganglia. No hemorrhage. No mass effect or evidence for mass on this unenhanced examination. 2. No hydrocephalus. Chest/Abdomen/Pelvis CT 10/25/21 10:35 IMPRESSION: 1. No pulmonary mass or nodule or adenopathy in the chest. Axillary lymph nodes are very minimally prominent. 2. No splenomegaly. 3. It would be difficult to exclude lymph nodes within the mesentery and retroperitoneum. There is confluent soft tissue which is probably nonopacified GI tract. There is no ascites or retroperitoneal adenopathy. 4. No osseous lesions. 5. Numerous collateral vessels around the RIGHT upper extremity shoulder and clavicle. No occlusions are identified. Consider ultrasound evaluation of the RIGHT upper extremity venous system. Partial thrombus may be present in the subclavian vein. A&P Assessment and plan (1) Acute right arterial ischemic stroke, middle cerebral artery (MCA): Patient with CVA in the distribution of the right MCA Currently has left-sided weakness. No contra indication for SHANIQUE I discussed the patient in detail the need for a SHANIQUE. The risk of aspiration, bleeding, soft tissue injury, perforation of the stomach/esophagus and other concomitant complications were explained to the patient in detail. The patient family refused the procedure. He does not want anything to be put in his throat. Status: Acute Consult Attestations Medical Necessity Statement: Patient requires continued hospital stay for close monitoring and further management Coding Level of Care Code Acute Clinical Reimbursement Specialist for [facility] Medical Decision Making Low Complexity Diagnoses Acute right arterial ischemic stroke, middle cerebral artery (MCA) I63.511
[2021-10-25 21:42] LABS: Glucose Point of Care 92 mg/dL (70-110)
[2021-10-26] VITALS (7 sets, daily range): BP systolic 95–142; BP diastolic 63–90; PULSE 81–99; RESP 15–19; TEMP 36.8–37.4; O2SAT 94–100
[2021-10-26 04:34] LABS: Basophils % 0.3 %; Eosinophils % 1.1 %; Hematocrit 39.8 % (42.0-52.0); Hemoglobin 14.2 g/dL (11.7-16.6); Lymphocytes # 1.1 10^3/uL (0.8-4.8); Lymphocytes % 31.4 %; Mean Corpuscular HGB Conc 35.7 g/dL (30.0-36.0); Mean Corpuscular Hemoglobin 31.7 pg (28.0-34.0); Mean Corpuscular Volume 88.8 fl (80-94); Monocytes # 0.4 10^3/uL (0.2-0.9); Monocytes % 11.1 %; Neutrophils # 1.95 10^3/uL (1.8-7.7); Neutrophils % 55.8 %; Nucleated Red Blood Cells % 0 %; Platelet Count 214 10^3/cmm (130-400); Red Blood Count 4.48 10^6/uL (4.1-5.3); Red Cell Distribution Width 11.9 % (12.1-15.1); White Blood Count 3.5 10^3/uL (4.0-10.0)
[2021-10-26 05:00] LABS: Alanine Aminotransferase 11 U/L (0-41); Alkaline Phosphatase 66 IU/L (40-130); Anion Gap 12.9 (5-19); Aspartate Amino Transferase 16 U/L (0-40); Blood Urea Nitrogen 8 mg/dL (6-20); Calcium 8.8 mg/dL (8.5-10.5); Carbon Dioxide 25 mmol/L (22-29); Chloride 100 mmol/L (98-107); Globulin 3.5 g/dL (1.3-4.6); Glomerular Filtration Rate 141.4 mL/min (90-130); Glucose 83 mg/dL (65-115); Osmolality Calculated 275 mOsm/kg (285-295); Potassium 3.9 mmol/L (3.5-5.1); Sodium 134 mmol/L (136-145); Total Bilirubin 0.6 mg/dL (0.15-1.2); Total Protein 7.5 g/dL (6.6-8.7)
[2021-10-26 06:42] LABS: Glucose Point of Care 169 mg/dL (70-110)
[2021-10-26] MEDS: aspirin 81 mg EC Tablet PO (09:11)
[2021-10-26] MEDS: apixaban 5 mg Tablet 10 MG PO ×2 (09:11→21:09)
--- NOTE | 2021-10-26 12:22 | P.PN_ITS ---
Subjective Subjective: Seen this morning. Saw patient in presence of physical therapy. I was present in the room when physical therapy tried to walk him. Patient is quite unsteady on his feet and requires constant holding and assistance even though with walker present. He believes he can walk on his own but he is at high risk for fall. We will wait for final physical therapy evaluation report. I also spoke to his mother this morning who was consented for the SHANIQUE. Upon talking to the patient again in presence of nurse and physical therapist patient verbally consented to have the SHANIQUE done. He does have a history of Asperger syndrome. Patient's mother also spoke to him on speaker phone with always present in the room and patient agreed to have the SHANIQUE done. Patient has to be redirected and requires constant coaching. Vitals/I&O/Wt Last Vital Signs Temp 98.2 F 10/26/21 11:15 Pulse 93 10/26/21 11:15 Resp 18 10/26/21 11:15 BP 118/81 10/26/21 11:15 Pulse Ox 97 10/26/21 11:15 10/25/21 10/26/21 10/26/21 22:59 06:59 14:59 Intake Total 130 / 1111.25 200 / 1311.25 Balance 130 / 1111.25 200 / 1311.25 Weight last 48 hrs Weight 69.853 kg Weight 73.21 kg Weight 86.183 kg Weight 72.847 kg Physical Exam Narrative: General: Alert oriented x3, patient seen laying in bed appearing comfortable at this time. HEENT: Normocephalic, atraumatic, EOMI, left facial droop noted Cardio: Regular rate rhythm, normal S1-S2, no murmurs rubs gallops, Respiratory: Good bilateral air entry, no wheezes no rhonchi appreciated GI: Abdomen soft, nontender, nondistended, bowel sounds + Extremities: Pulses 2+, no edema, no cyanosis Neuro: Right leg 4-5, left leg 3 out of 5, left facial droop present, [id number] normal, slurred speech present, patient doesnt like to talk very much. Very difficult to assess. Left upper extremity 2/5 weaker compared to right. Unstable ataxic gait. Requires assistance and constant holding while walking. Unable to walk on his own. Skin: A lot of tattoos present ? Data : 10/26/21 03:36 10/26/21 03:36 Micro: Microbiology 10/24/21 21:29 Urine Culture - Final Urine,Clean Catch A&P Assessment and plan (1) Cerebral vascular disease: Status: Acute (2) Acute right arterial ischemic stroke, middle cerebral artery (MCA): Status: Acute (3) DVT (deep venous thrombosis): Status: Acute (4) Stroke: Status: Acute Plan #Subacute MCA stroke #Bilateral DVT #No other known past medical history #Asperger syndrome -We will do hypercoagulable work-up ? Anticardiolipin antibody, lupus, DERRICK, dimer, protein C, protein S ? Bilateral DVT present great saphenous vein, although up to common femoral vein, profunda. Upper extremity bilaterally DVT present. ? CT chest abdomen pelvis did not show any apparent tumors or masses. -Continue aspirin 81, stop Eliquis, Eliquis 10 twice daily for 7 days and then 5 twice daily indefinitely.? Discussed with Dr. Real, patient does not have any atherosclerosis. We will hold off on statin after discussion with neurology. ? Check echo to rule out PFO. TTE without a very good study we could not rule out PFO. We will proceed with SHANIQUE. -Speech swallow eval.? Patient does have dysphagia and had trouble with pur?ed foods.? Thickened liquids have been recommended at this point. -PT OT assessment ordered. Will await final report -As per neurologist discussion with radiologist patient's brain vasculature is somewhat abnormal and there is suspicion of a congenital etiology.? He will need further assessment by neurology in [facility] once he goes back. Full code Family updated over the phone. Patient has already been accepted at [facility]. Awaiting bed. Attestations Medical Necessity Statement*: Greater than 24-hour stay. Awaiting transfer to [place]. Coding Level of Care Code Acute Administrative Program Specialist for [facility] Fwd Diagnoses Cerebral vascular disease I67.9 Acute right arterial ischemic stroke, middle cerebral artery (MCA) I63.511 DVT (deep venous thrombosis) I82.409 Stroke I63.9
[2021-10-26 16:18] LABS: Anti-Nuclear Antibody Screen NEGATIVE (NEGATIVE)
[2021-10-26 18:00] LABS: Glucose Point of Care 134 mg/dL (70-110)
--- NOTE | 2021-10-26 18:41 | PC.NURSE ---
Patient AAOx3, VSS, family members at bedside, remains LUE flaccid and LLE moderate weakness. Has to be coached through instructions such as using right arm to answer phone, move your right leg to side of bed, etc. Patient is labile but calm and cooperative when not nervous about situation. No needs at this time. No new events or needs. Room clean and clutter free with call light within reach. Report to oncoming nurse at bedside.
[2021-10-26 20:52] LABS: Glucose Point of Care 152 mg/dL (70-110)
[2021-10-27] VITALS (13 sets, daily range): BP systolic 91–117; BP diastolic 58–78; PULSE 61–103; RESP 14–18; TEMP 36.3–37.3; O2SAT 95–100
[2021-10-27 07:20] LABS: Glucose Point of Care 96 mg/dL (70-110)
--- NOTE | 2021-10-27 07:52 | ANES.PREANE2 ---
Pre-Anesthetic Assessment Height/Weight: Height 1.83 m Weight 69.853 kg Temp Pulse Resp BP Pulse Ox 97.7 F 61 18 105/66 97 10/27/21 04:00 10/27/21 04:00 10/27/21 04:00 10/27/21 04:00 10/27/21 04:00 Preop Diagnosis: stroke SHANIQUE Familial anesthetic complications: Hx obtained from patient's mother at bedside No family hx of complications from anesthesia Was Beta Ministerio taken within 24 hours: N/A Was Clonidine taken within 24 hours: N/A Social Tobacco and No alcohol Exam alert, oriented x 3, clear to auscultation bilaterally and regular rate & rhythm Airway Mallampati: Class IV Dentition: full Comments: Comments: Limited cooperation with exam. History/ROS No significant complaints Pulmonary None reported CV/HEM Deep Vein Thrombosis and None reported None reported Hepatic None reported GI None reported Metabolic None reported Musc/skel None reported Neuropsych Cerebrovascular Accident (MCA) Asperberger's disorder Anesthetic Plan ASA status: 3 Anesthesia: Anesthesia Evaluation and General Other: I discussed with the patient and his mother the risks, goals, and benefits of MAC and general anesthesia. We discussed spectrum of MAC anesthesia including conversion to general as well as possibility of recall of intraoperative stimuli including discomfort/pain. Mother and patient agree to proceed with MAC. Patient signed with dots on on consent form, mother co-signed anesthesia consent. Risk of > 500 ml blood loss (7ml/kg in children): No Medications/Allergies Home Medications Medication Instructions Recorded Confirmed Last Taken Type No Known Home Medications 10/24/21 10/24/21 Unknown History Allergies Allergy/AdvReac Type Severity Reaction Status Date / Time No Known Allergies Allergy Unverified 10/24/21 12:00 Current Medications Generic Name Dose Route Start Last Admin Trade Name Hugoq PRN Reason Stop Dose Admin Apixaban 10 mg 10/25/21 21:00 10/26/21 21:09 Apixaban 5 Mg Tablet PO 11/01/21 20:59 10 mg BID@0900,2100 LUISANA Administration Aspirin 81 mg 10/26/21 09:00 10/26/21 09:11 Aspirin 81 Mg Ec Tablet PO 81 mg DAILY LUISANA Administration [facility] Anesthesia Medical History Asperger's disorder Social History Smoking and tobacco status: current every day smoker Alcohol intake: never Substance/Drug Use: never Data Anesthesia : 10/26/21 03:36 10/26/21 03:36 Short CBC 10/25/21 10/26/21 Range/Units 08:32 03:36 WBC 3.5 L (4.0-10.0) 10^3/uL Hgb 14.2 (11.7-16.6) g/dL Hct 39.8 L (42.0-52.0) % MCV 88.8 (80-94) fl Plt Count 214 214 (130-400) 10^3/cmm Neut % (Auto) 55.8 % Neut # (Auto) 1.95 (1.8-7.7) 10^3/uL BMP 10/26/21 03:36 Sodium 134 L Potassium 3.9 Chloride 100 Carbon Dioxide 25 BUN 8 Creatinine 0.8 Glucose 83 Calcium 8.8 Liver Function 10/26/21 Range/Units 03:36 Total Bilirubin 0.6 (0.15-1.2) mg/dL AST 16 (0-40) U/L ALT 11 (0-41) U/L Alkaline Phosphatase 66 (40-130) IU/L Albumin 4.0 (3.5-5.2) g/dL Coags 10/25/21 08:32 PT 15.60 H INR 1.21 H APTT 30.5 Fibrinogen 236 D-Dimer 3.99 H Microbiology 10/24/21 21:29 Urine Culture - Final Urine,Clean Catch Cardiac Studies: Echocardiogram 10/25/21
[2021-10-27] MEDS: sodium chloride 0.9% 1,000 ML 30 ML IV (08:39)
--- NOTE | 2021-10-27 09:46 | ANE.PACU2 ---
Inpatient post-anesthesia follow up: Airway intact: Yes Vital signs: Temperature 97.4 F Pulse Rate 89 Respiratory Rate 14 Blood Pressure 93/58 Pulse Oximetry 100 Oxygen Delivery Me thod Room Air Oxygen Flow Rate Fraction of Inspir ed Oxygen Hydration adequate: Yes Nausea and vomiting: No Pain level: 1 Mental status: Baseline
[2021-10-27 09:52] LABS: Creatine Phosphokinase 60 U/L (39-308)
--- NOTE | 2021-10-27 10:00 | USCV_ITS ---
Brigitte Yusuf Age: 26 Gender: M : 1995 Exam Date: 10/27/2021 09:09 Ordering Phys: Hermila Maya MD ([email or web address]) Technologist: Alonzo Johnson [place] [facility] [place]: cva, rule out cardiac source of embolization BP: / HR: Rhythm: Sinus Technical Quality: Good MEASUREMENTS (Male / Female) Normal Values Medications Complications None Proc. Components After discussing risks and benefits of the procedure and obtaining consent for the procedure, patient had sedation given by anesthesia team. We then introduced SHANIQUE probe and images were obtained. FINDINGS Left Ventricle LV systolic fucntion is normal Right Ventricle Normal in size and function Right Atrium Normal in size Left Atrium Grossly normal LA Appendage No KEVIN thrombus IA Septum No evidence of intracardiac shunting Mitral Valve Normal mitral valve. Mild mitral valve Aortic Valve Normal tricuspid valve. Tricuspid Valve Normal tricuspid valve Pulmonic Valve Not well visualized Pericardium Normal Aorta Normal CONCLUSIONS Normal LV systolic function Normal RV size and function Bubble study shows no evidence of intracardiac shunting Mild mitral regurgitation seen Marlon Heard MD (Electronically Signed) Final Date: 28 Oct 2021 13:35 S
--- NOTE | 2021-10-27 11:54 | CTR_ITS ---
PROCEDURE INFORMATION: Exam: CT Head Without Contrast Exam date and time: 10/27/2021 12:35 PM Age: 26 years old Clinical indication: Other: Drowsy. TECHNIQUE: Imaging protocol: Computed tomography of the head without contrast. Axial, coronal and sagittal reformatted images were created and reviewed. Radiation optimization: All CT scans at this facility use at least one of these dose optimization techniques: automated exposure control; mA and/or kV adjustment per patient size (includes targeted exams where dose is matched to clinical indication); or iterative reconstruction. COMPARISON: MR head wo con* [id number] 10/24/2021 12:25 PM RADIATION DOSE METRICS: Total DLP (mGy-cm): 800.44 FINDINGS: Brain: Evolving right MCA territory infarct with interval increasing conspicuity, localized mass effect and sulcal effacement since the prior study. Focal, well-circumscribed hypodensity in the left basal ganglia, consistent with chronic lacunar infarction. No CT evidence of acute intracranial hemorrhage. No midline shift. Basal cisterns patent. Cerebral ventricles: Normal in size and configuration. Paranasal sinuses: Unremarkable. No fluid levels. Mastoid air cells: Grossly unremarkable. Bones/joints: No acute osseous abnormality. Soft tissues: Grossly unremarkable. CT/CT head wo con* [id number] IMPRESSION: Evolving right MCA territory infarct, as described above.
[2021-10-27 12:01] LABS: Glucose Point of Care 98 mg/dL (70-110)
--- NOTE | 2021-10-27 13:25 | PM.PN ---
Subjective Subjective: Seen this morning. He had just returned from [place] and had SHANIQUE completed. Family present at bedside updated. I filled out [facility] paperwork for patient's mother for total of 60 days as per her request so that she can take care of her son as he is requiring a lot of assistance with ADLs. He will need to follow-up with hematology and neurology and go for rehab. Patient quite drowsy at this time since still under the effect of anesthesia. No acute events overnight. Patient's nurses do state that throughout the evening and throughout the night patient is much more alert active talking. 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 Vitals/I&O/Wt Last Vital Signs Temp 98.2 F 10/27/21 13:16 Pulse 66 10/27/21 13:16 Resp 15 10/27/21 13:16 BP 104/69 10/27/21 13:16 Pulse Ox 98 10/27/21 13:16 10/26/21 10/27/21 10/27/21 22:59 06:59 14:59 Intake Total 880 / 880 30 / 910 0 / 0 Output Total 0 / 0 Balance 880 / 880 30 / 910 0 / 0 Weight last 48 hrs Weight 69.853 kg Physical Exam Narrative: General: Drowsy from effect of anesthesia, patient seen laying in bed appearing comfortable at this time. HEENT: Normocephalic, atraumatic, EOMI, left facial droop noted, speech slightly slurred Cardio: Regular rate rhythm, normal S1-S2, no murmurs rubs gallops, Respiratory: Good bilateral air entry, no wheezes no rhonchi appreciated GI: Abdomen soft, nontender, nondistended, bowel sounds + Extremities: Pulses 2+, no edema, no cyanosis Neuro: Right leg 4-5, left leg 3 out of 5, left facial droop present, [id number] normal, slurred speech present, patient doesnt like to talk very much. Very difficult to assess. Did not do another neuro exam at this time due to being under anesthesia effect and sleeping. Obtained info from RN and mom. Skin: A lot of tattoos present Data : 10/26/21 03:36 10/26/21 03:36 Micro: Microbiology 05/25/22 21:29 Urine Culture - Final Urine,Clean Catch A&P Assessment and plan (1) Cerebral vascular disease: Status: Acute (2) Acute right arterial ischemic stroke, middle cerebral artery (MCA): Status: Acute (3) DVT (deep venous thrombosis): Status: Acute (4) Stroke: Status: Acute Plan #Subacute MCA stroke #Bilateral DVT #No other known past medical history #Asperger syndrome -We will do hypercoagulable work-up ? Anticardiolipin antibody, lupus, DERRICK, dimer, protein C, protein S, beta2 glycoprotein. Await all work-up. Patient will need to follow-up with hematology outpatient. ? Bilateral DVT present great saphenous vein, although up to common femoral vein, profunda.? Upper extremity bilaterally DVT present. ? CT chest abdomen pelvis did not show any apparent tumors or masses. -Continue Eliquis 10 twice daily for 7 days and then 5 twice daily indefinitely.? Discussed with Dr. Real and [facility]. As per recommendations we will stop aspirin. No need of Plavix or statin in this case. ? SHANIQUE completed today. Cardiac embolic source ruled out, no intracardiac shunting present as per cardiology. Official written report pending. - Speech evaluation complete. Patient recommended pur?ed food and thickened liquids. We will continue. -PT OT assessment ordered. Acute rehab daily recommended for the patient. -As per neurologist discussion with radiologist at admission patient's brain vasculature is somewhat abnormal and there is suspicion of a congenital etiology.? He will need further assessment by neurology in [facility] once he goes back. -Had a long discussion with Dr. Guerrier at [facility] today regarding patient's hospital stay here at [facility]. I informed her of all the testing we have done so far and the results of the venous Dopplers upper and lower extremities with evidence of DVT. Patient definitely has hypercoagulable state, etiology unknown at this time. All results of workup are pending. [facility] recommended to have another CT scan of head to ensure there is no midline shift and surrounding edema for which patient would possibly need craniotomy although clinically it does not appear that this might be the case at this time. CT head obtained and results discussed with Dr. Guerrier. She has recommended the patient continue on Eliquis and to follow-up with neurology and hematology as an outpatient. She also recommended rehab for the patient. Since there is no other work-up that [facility] that will be doing at this time, after discussion with Dr. Guerrier patient will no longer need to be transferred to [facility]. Transfer stopped. I will discuss this with the family to have rehab set up for him and to potentially discharge him to follow-up as an outpatient. Mom stated that she will be taking him back to [place] from her initial conversation this morning if he was not going to [place] anymore. I will update her with my conversation that I had with [facility] today. I also discussed this with assistant case manager Analisa that we need to have referrals for hematology neurology PCP and rehab in [place] before patient goes so there is a good follow-up plan in place. Patient needs continued active aggressive rehab daily as per physical therapy assessment. Full code Attestations Medical Necessity Statement*: Pending rehab placement vs. disharge home with outpatient rehab and hematology/neurology follow up Coding Level of Care Code Acute [employer] Special Education Teacher for Latanya Neri Diagnoses Cerebral vascular disease I67.9 Acute right arterial ischemic stroke, middle cerebral artery (MCA) I63.511 DVT (deep venous thrombosis) I82.409 Stroke I63.9
--- NOTE | 2021-10-27 15:12 | PC.PT ---
As of 10/27/21 afternoon, discharge planning is working on getting client assist to be able to go into a rehab setting, but due to no insurance, this may not be realistic. They ask that we make our goals toward being able to go to home setting. Client had a procedure on the esophagus this morning and was not available for PT this date.
--- NOTE | 2021-10-27 18:13 | PC.NURSE ---
Patient resting in bed, able to answer orientation questions with a quiet mumbled response and answers accurately. VSS, able to turn self in bed when he gets uncomfortable but refuses when asked to turn and wants staff to turn him. Patient is capable of doing more for self but has to be coached and encouraged. Family is at bedside, room is clean and clutter free with call light in reach. Will give bedside report to oncoming nurse at shift change. No new events or needs at this time.
[2021-10-27] MEDS: apixaban 5 mg Tablet 10 MG PO (19:57)
[2021-10-28] VITALS (7 sets, daily range): BP systolic 104–121; BP diastolic 65–83; PULSE 90–104; RESP 16–20; TEMP 36.9–37.6; O2SAT 95–98
[2021-10-28 02:13] LABS: CARDIOLIPIN AB (IGA) 2.8 APL-U/mL; CARDIOLIPIN AB (IGG) 7.4 GPL-U/mL; CARDIOLIPIN AB (IGM) <2.0 MPL-U/mL
[2021-10-28] MEDS: apixaban 5 mg Tablet 10 MG PO ×2 (08:29→20:45)
--- NOTE | 2021-10-28 13:16 | PM.PN ---
Subjective Subjective: Seen laying in bed today. Follows commands but generally quiet. Mom at bedside. Answered moms questions in detail. He is pending rehab placement. No acute events overnight. Vitals/I&O/Wt Last Vital Signs Temp 98.4 F 10/28/21 12:00 Pulse 104 H 10/28/21 12:00 Resp 17 10/28/21 12:00 BP 104/70 10/28/21 12:00 Pulse Ox 98 10/28/21 12:00 10/27/21 10/28/21 10/28/21 22:59 06:59 14:59 Intake Total 320 / 520 360 / 360 Balance 320 / 520 360 / 360 Physical Exam Narrative: General: Alert and oriented laying in bed appearing comfortable. Able to follow commands. He is generally quiet. Does not talk very much. Consistent since admission. HEENT: Normocephalic, atraumatic, EOMI, left facial droop noted, speech slightly slurred Cardio: Regular rate rhythm, normal S1-S2, no murmurs rubs gallops, Respiratory: Good bilateral air entry, no wheezes no rhonchi appreciated GI: Abdomen soft, nontender, nondistended, bowel sounds + Extremities: Pulses 2+, no edema, no cyanosis Neuro: Bilateral lower extremities 4-5, left facial droop present, [id number] normal. Tongue midline, PERRLA, left upper extremity strength 2 out of 5, contracted. Skin: A lot of tattoos present Data : 10/26/21 03:36 10/26/21 03:36 A&P Assessment and plan (1) Cerebral vascular disease: Status: Acute (2) Acute right arterial ischemic stroke, middle cerebral artery (MCA): Status: Acute (3) DVT (deep venous thrombosis): Status: Acute (4) Stroke: Status: Acute Plan #Subacute MCA stroke #Bilateral DVT #No other known past medical history #Asperger syndrome (reported by patient at admission). -We will do hypercoagulable work-up ? Anticardiolipin antibody, lupus, DERRICK, dimer, protein C, protein S, beta2 glycoprotein.? Await all work-up.? Patient will need to follow-up with hematology outpatient. He will need to follow-up with ? Bilateral DVT present great saphenous vein, although up to common femoral vein, profunda.? Upper extremity bilaterally DVT present. ? CT chest abdomen pelvis did not show any apparent tumors or masses. -Continue Eliquis 10 twice daily for 7 days (till november 01) and then 5 twice daily indefinitely.? Discussed with Dr. Real and [facility].? As per recommendations we will stop aspirin.? No need of Plavix or statin in this case. ? SHANIQUE completed 10/26/2021.? Cardiac embolic source ruled out, no intracardiac shunting present as per cardiology.? Official written report pending. ?- Speech evaluation complete.? Patient recommended pur?ed food and thickened liquids.? We will continue.? -PT OT assessment ordered.? Acute rehab daily recommended for the patient. - Please see my progress note from [facility] for my discussion with [facility] neuro. Patient pending placement to rehab. Mom has filled application and case management working on finding placement. Full Code He will need outpatient referrals for PCP, neurology, hematology. Attestations Medical Necessity Statement*: Pending rehab placement. Coding Level of Care Code Acute Administration Professional for Latanya Neri Diagnoses Cerebral vascular disease I67.9 Acute right arterial ischemic stroke, middle cerebral artery (MCA) I63.511 DVT (deep venous thrombosis) I82.409 Stroke I63.9
--- NOTE | 2021-10-28 13:23 | PM.MISC ---
Miscellaneous Note Purpose of Documentation: Family request Note: This is to acknowledge that patient Mr. Brigitte Yusuf, 1995 is currently admitted at [facility] with a diagnosis of Middle Cerebral Artery Stroke. Date of admission 10/24/2021. Date of discharging: Pending.
[2021-10-29] VITALS (7 sets, daily range): BP systolic 98–115; BP diastolic 61–78; PULSE 77–106; RESP 15–18; TEMP 36.6–38.1; O2SAT 95–98
[2021-10-29] MEDS: apixaban 5 mg Tablet 10 MG PO ×2 (09:29→21:14)
--- NOTE | 2021-10-29 10:42 | P.PN_ITS ---
Subjective Subjective: No overnight events, awaiting placement No active pain abdomen with palpation Vitals/I&O/Wt Last Vital Signs Temp 99.6 F 10/29/21 08:00 Pulse 102 H 10/29/21 08:00 Resp 17 10/29/21 08:00 BP 101/61 10/29/21 08:00 Pulse Ox 96 10/29/21 08:00 10/28/21 10/29/21 10/29/21 22:59 06:59 14:59 Intake Total 1225.5 / 1825.5 120 / 120 Balance 1225.5 / 1825.5 120 / 120 Physical Exam Narrative: Mr. Morin seems very withdrawn Showing signs of depression Able to answer my questions appropriately No signs of stroke Doing well on room air Is able to wiggle his toes on left side however no movement at all of left arm No vision changes Soft abdomen Multiple skin tattoos S1, S2 Data : 10/26/21 03:36 10/26/21 03:36 A&P Assessment and plan (1) Cerebral vascular disease: Status: Acute (2) Acute right arterial ischemic stroke, middle cerebral artery (MCA): Status: Acute (3) DVT (deep venous thrombosis): Status: Acute (4) Stroke: Status: Acute Plan Subacute MCA stroke New diagnosis of bilateral DVT No previous history of hypercoagulable blood disorder Left-sided hemiplegia On dysphagia diet Currently on therapeutic Eliquis loading dose No signs of intracardiac shunt No signs of tumors or mass Suspicion is high for hypercoagulable blood disorder Awaiting placement Full code Repeat EKG today, Add low-dose normal saline DVT prophylaxis sufficed with Eliquis Attestations Medical Necessity Statement*: Awaiting placement Time Spent in Patient Care: 20mins Coding Level of Care Code Acute 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
--- NOTE | 2021-10-29 10:46 | ECG_ITS ---
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 Measurements Intervals [place] Rate: 103 P: 74 DC: 128 QRS: 56 QRSD: 76 T: 60 QT: 319 QTc: 419 Interpretive Statements SINUS TACHYCARDIA NONSPECIFIC T-WAVE ABNORMALITY Compared to ECG 10/25/2021 02:54:15 Sinus rhythm no longer present T-wave abnormality still present Electronically Signed On 10-29-2021 19:44:03 CDT by Marlon Heard M.D. [id number]
[2021-10-29] MEDS: escitalopram 10 mg Tablet 20 MG PO (12:30)
[2021-10-29] MEDS: sodium chloride 0.9% 1,000 ML 75 ML IV (12:32)
[2021-10-29 17:58] LABS: PROTEIN C, ACTIVITY 94 % (70-180)
[2021-10-29] MEDS: BuSPIRONE 10 mg Tablet PO (19:49)
[2021-10-30] VITALS: BP 112/73; PULSE 93; RESP 14; TEMP 36.3; O2SAT 97
[2021-10-30] MEDS: sodium chloride 0.9% 1,000 ML 75 ML IV (01:32)
[2021-10-30 04:00] VITALS: BP 115/76; PULSE 88; RESP 12; TEMP 36.4; O2SAT 96
[2021-10-30 08:00] VITALS: BP 110/74; PULSE 86; RESP 16; TEMP 37.1; O2SAT 98
[2021-10-30] MEDS: BuSPIRONE 10 mg Tablet PO ×2 (10:15→18:25)
[2021-10-30] MEDS: apixaban 5 mg Tablet 10 MG PO ×2 (10:15→20:50)
[2021-10-30 11:14] VITALS: BP 121/81; PULSE 97; RESP 16; TEMP 36.3; O2SAT 97
--- NOTE | 2021-10-30 12:46 | PM.MISC ---
Miscellaneous Note Note: This is my progress note for today Patient is very withdrawn showing signs of depression I have started BuSpar yesterday Hemodynamically stable Awaiting placement hydrogen plant operations manager working on his case No new neurological deficit S1, S2 Saturating well on room air Multiple skin tattoos Does not make eye contact Seems very depressed No suicidal ideation Left-sided weakness Plan Continue BuSpar for depression, awaiting placement Discontinue IV fluids, heart rate improved Continue Eliquis, will discontinue on 11/01 start 5 mg twice daily Full code Soft mechanical diet
[2021-10-30 15:15] VITALS: BP 111/77; PULSE 99; RESP 16; TEMP 36.4; O2SAT 98
[2021-10-30 19:40] VITALS: BP 108/74; PULSE 101; RESP 18; TEMP 36.8; O2SAT 95
[2021-10-31] VITALS: BP 115/78; PULSE 96; RESP 14; TEMP 37.9
[2021-10-31 03:08] LABS: PROTEIN S, ACTIVITY 62 % normal (70-150)
[2021-10-31 04:00] VITALS: BP 127/73; PULSE 91; RESP 16; TEMP 36.8; O2SAT 91
[2021-10-31 06:55] LABS: Glucose Point of Care 110 mg/dL (70-110)
[2021-10-31 07:31] VITALS: BP 113/69; PULSE 95; RESP 16; TEMP 37.3; O2SAT 99
[2021-10-31] MEDS: BuSPIRONE 10 mg Tablet PO ×2 (09:11→17:21)
[2021-10-31] MEDS: apixaban 5 mg Tablet 10 MG PO ×2 (09:11→20:08)
[2021-10-31 11:19] VITALS: BP 103/68; PULSE 87; RESP 12; TEMP 37.1; O2SAT 97
--- NOTE | 2021-10-31 11:38 | PM.PN ---
Subjective Subjective: Patient is much more energetic as compared to yesterday He is on BuSpar Patient stated that he does not remember seeing me however I have been seeing him since Friday, I reminded him that we had conversation regarding his skin tattoos He was able to take couple of sips of juice without significant aspiration multimedia project manager actively working on his case, Vitals/I&O/Wt Last Vital Signs Temp 98.7 F 10/31/21 11:19 Pulse 87 10/31/21 11:19 Resp 12 10/31/21 11:19 BP 103/68 10/31/21 11:19 Pulse Ox 97 10/31/21 11:19 10/30/21 10/31/21 10/31/21 22:59 06:59 14:59 Intake Total 690 / 2170 600 / 2770 Output Total 280 / 280 750 / 1030 Balance 410 / 1890 -150 / 1740 Weight last 48 hrs Weight 70.352 kg Physical Exam Narrative: Currently patient laying supine Satting well room air No new focal deficit Able to wiggle his toes bilaterally No movement at all of left arm Able to take a sip of water and juice without aspiration Abdomen soft Saturating well on room air No neurofocal deficits S1, S2 Depressed mood Did make eye contact today Data : 10/26/21 03:36 10/26/21 03:36 A&P Assessment and plan (1) Cerebral vascular disease: Status: Acute (2) Acute right arterial ischemic stroke, middle cerebral artery (MCA): Status: Acute (3) DVT (deep venous thrombosis): Status: Acute (4) Stroke: Status: Acute Plan Last day of Eliquis of 10 mg twice daily tomorrow, from 11/02 will start 5 mg twice daily for Eliquis Currently awaiting placement For depression continue BuSpar Daily PT multimedia project manager working diligently on his case Attestations Medical Necessity Statement*: Continue medical management, awaiting placement Time Spent in Patient Care: 10min Coding Level of Care Code Acute Senior Support Engineer for Latanya Neri Diagnoses Cerebral vascular disease I67.9 Acute right arterial ischemic stroke, middle cerebral artery (MCA) I63.511 DVT (deep venous thrombosis) I82.409 Stroke I63.9
[2021-10-31 15:25] VITALS: BP 163/75; PULSE 86; TEMP 36.4; O2SAT 91
[2021-10-31 19:18] LABS: PTT-LA 35 sec (< OR = 40); Prothrombin Time 37 sec (< OR = 45)
[2021-10-31 20:00] VITALS: BP 103/61; PULSE 85; RESP 14; TEMP 36.6; O2SAT 99
[2021-11-01] VITALS: BP 107/75; PULSE 55; RESP 14; TEMP 36.6; O2SAT 96
[2021-11-01 05:42] VITALS: BP 105/72; PULSE 66; RESP 14; TEMP 36.2; O2SAT 94
[2021-11-01 06:59] VITALS: BP 99/67; PULSE 96; RESP 17; TEMP 36.6
[2021-11-01] MEDS: BuSPIRONE 10 mg Tablet PO ×2 (09:18→17:45)
[2021-11-01] MEDS: lactated ringers 1,000 ML 999 ML IV (09:21)
[2021-11-01] MEDS: apixaban 5 mg Tablet 10 MG PO (10:10)
[2021-11-01] MEDS: methylphenidate 10 mg Tablet 5 MG PO (10:10)
--- NOTE | 2021-11-01 10:50 | PM.PN ---
Subjective Subjective: This morning noticed low blood pressure we will give him 1 L bolus, patient is endorsing poor appetite, did not participate with the physical therapist yesterday, I will give him a trial of Ritalin today His insurance will cover nursing homes and rehab in [place], employment case manager working diligently on his placement I have requested ceruloplasmin level Vitals/I&O/Wt Last Vital Signs Temp 97.9 F 11/01/21 06:59 Pulse 96 11/01/21 06:59 Resp 17 11/01/21 06:59 BP 99/67 11/01/21 06:59 Pulse Ox 94 11/01/21 05:42 10/31/21 11/01/21 11/01/21 22:59 06:59 14:59 Intake Total 120 / 360 Balance 120 / 360 Weight last 48 hrs Weight 70.352 kg Physical Exam Narrative: Patient is making eye contact Endorsing poor appetite Abdomen soft Multiple skin tattoos No new focal deficit He has started communicating more as compared to last 3 days, Is endorsing depression as well S1, S2 Saturating well on room air Left arm no activity at all Able to wiggle his toes Data : 10/26/21 03:36 10/26/21 03:36 A&P Assessment and plan (1) Cerebral vascular disease: Status: Acute (2) Acute right arterial ischemic stroke, middle cerebral artery (MCA): Status: Acute (3) DVT (deep venous thrombosis): Status: Acute (4) Stroke: Status: Acute Plan Anorexia CVA Depression Hypertension Trial of Ritalin today, 1 L IV fluid bolus Continue antidepressant Awaiting placement Ceruloplasmin level is pending Low protein S activity Lupus antibodies unremarkable DERRICK screen negative Attestations Medical Necessity Statement*: Awaiting placement Time Spent in Patient Care: 10min Coding Level of Care Code Acute Brood Hatchery Manager for Latanya Neri Diagnoses Cerebral vascular disease I67.9 Acute right arterial ischemic stroke, middle cerebral artery (MCA) I63.511 DVT (deep venous thrombosis) I82.409 Stroke I63.9
[2021-11-01 11:15] VITALS: PULSE 75; RESP 16; TEMP 36.4; O2SAT 93
[2021-11-01 12:37] LABS: Ceruloplasmin 31 mg/dL (18-36)
[2021-11-01 15:45] VITALS: BP 111/76; PULSE 62; RESP 16; TEMP 37; O2SAT 98
--- NOTE | 2021-11-01 18:14 | PC.NURSE ---
Patient AAOx3, VSS, OOBTC and showered with out any complications, no c/o pain or discomfort. No family at bedside but have spoken on phone today. Tolerating diet, working with this nurse and therapies. Room clean and clutter free with call light in reach. Turning self frequently and checking for incontinence frequently. No new events or needs. will report to oncoming nurse at shift change at bedside.
--- NOTE | 2021-11-01 19:30 | PC.NURSE ---
Patient resting in bed with eyes closed. Eyes open spontaneously to verbal commands. Patient agreeable to assessment at this time. Patient denies needs or pain. No distress observed. Patient able to self turn without difficulty. Will continue to monitor.
[2021-11-01 19:46] VITALS: BP 101/71; PULSE 86; RESP 18; TEMP 36.7; O2SAT 98
[2021-11-02] VITALS (7 sets, daily range): BP systolic 100–116; BP diastolic 58–79; PULSE 71–107; RESP 13–18; TEMP 36.7–37.3; O2SAT 95–100
[2021-11-02] MEDS: apixaban 5 mg Tablet PO ×3 (06:22→21:04)
--- NOTE | 2021-11-02 08:24 | PM.PN ---
Subjective Subjective: Patient is stating that Ritalin did help his mood and he worked with physical therapist He is not endorsing any new complaints Blood pressure is better after bolus He is endorsing low appetite anorexia Vitals/I&O/Wt Last Vital Signs Temp 98.2 F 11/02/21 07:47 Pulse 71 11/02/21 07:47 Resp 14 11/02/21 07:47 BP 116/76 11/02/21 07:47 Pulse Ox 98 11/02/21 07:47 11/01/21 11/02/21 11/02/21 22:59 06:59 14:59 Intake Total 240 / 1480 0 / 1480 Output Total 100 / 100 Balance 140 / 1380 0 / 1380 Weight last 48 hrs Weight 69.581 kg Physical Exam Narrative: Patient is laying supine Today he did not make eye contact He was answering my questions with his eyes closed He is making sense does not seem confused No new focal deficit S1, S2 Euvolemic Satting well on room air Data : 10/26/21 03:36 10/26/21 03:36 A&P Assessment and plan (1) Cerebral vascular disease: Status: Acute (2) Acute right arterial ischemic stroke, middle cerebral artery (MCA): Status: Acute (3) DVT (deep venous thrombosis): Status: Acute (4) Stroke: Status: Acute Plan Middle cerebral artery stroke: Hypercoagulable state protein S deficiency Start Eliquis 5 mg twice daily Ceruloplasmin factor V Leyden mutation pending does not meet criteria for lupus Diet has been advanced by speech therapist Full code Blood pressure better with IV fluid hydration Depression: BuSpar, Ritalin did help to elevate his mood I will keep him on once a day regimen for now Awaiting placement Attestations Medical Necessity Statement*: Awaiting placement Time Spent in Patient Care: 10mins Coding Level of Care Code Acute Coordinator Of Health Services for Latanya Neri Diagnoses Cerebral vascular disease I67.9 Acute right arterial ischemic stroke, middle cerebral artery (MCA) I63.511 DVT (deep venous thrombosis) I82.409 Stroke I63.9
[2021-11-02] MEDS: methylphenidate 10 mg Tablet 5 MG PO (09:05)
[2021-11-02] MEDS: BuSPIRONE 10 mg Tablet PO ×2 (09:05→18:06)
[2021-11-03] VITALS (7 sets, daily range): BP systolic 100–127; BP diastolic 63–77; PULSE 58–112; RESP 15–18; TEMP 36.8–37.7; O2SAT 95–100
[2021-11-03] MEDS: BuSPIRONE 10 mg Tablet PO ×2 (09:22→18:34)
[2021-11-03] MEDS: methylphenidate 10 mg Tablet 5 MG PO ×2 (09:22→18:34)
[2021-11-03] MEDS: apixaban 5 mg Tablet PO ×2 (09:29→20:40)
--- NOTE | 2021-11-03 12:40 | P.MISC_ITS ---
Miscellaneous Note Note: See my progress note I did speak with his mother in detail her numbers [phone] We did discuss protein S deficiency, use of Eliquis, her other children should also get screening for hypercoagulable state, I did update her regarding BuSpar and use of Ritalin Patient was counseled to get out of bed to chair, take a shower and use a walker He wanted to eat chicken nuggets, he did not tolerate his his mother ordered online No new complaints Makes eye contact Endorsing depression Endorsing fatigue and lethargic He was on His stomach Saturating well on room air Blood pressure is soft again Plan Continue Ritalin, BuSpar Monitor off fluids today I would avoid adding mirtazapine Continue [place] Mother updated curriculum development manager working diligently for his placement
--- NOTE | 2021-11-03 12:45 | CTR_ITS ---
PROCEDURE INFORMATION: Exam: CT Head Without Contrast Exam date and time: 11/04/2021 9:25 AM Age: 26 years old Clinical indication: Walking, difficulty and weakness, extremity; Left; Additional info: Cerebral edema TECHNIQUE: Imaging protocol: Computed tomography of the head without contrast. Radiation optimization: All CT scans at this facility use at least one of these dose optimization techniques: automated exposure control; mA and/or kV adjustment per patient size (includes targeted exams where dose is matched to clinical indication); or iterative reconstruction. COMPARISON: CT head wo con* [id number] 10/27/2021 12:35 PM RADIATION DOSE METRICS: Total DLP (mGy-cm): 802.73 FINDINGS: Brain: There is progressive encephalomalacia in the right frontal lobe and right basal ganglia since 10/27/2021. No significant mass effect. no acute intracranial hemorrhage. The brain is otherwise unremarkable. Cerebral ventricles: There is no significant ventricular dilation. The basal cisterns are unremarkable. Paranasal sinuses: The paranasal sinuses are clear. Mastoid air cells: The mastoid air cells are clear. Bones/joints: The calvarium is intact. Soft tissues: The visible extracranial soft tissues are unremarkable. CT/CT head wo con* [id number] IMPRESSION: Evolving infarction in the right middle cerebral artery territory. No hemorrhage. No mass effect.
--- NOTE | 2021-11-03 16:34 | PC.NURSE ---
Called Mother to let her know patient was found on floor assuming he was going from chair to bed. Alarm in hand but did not push it. Mother was very thankful we called and stated patient is very compulsive.
--- NOTE | 2021-11-03 18:10 | PC.NURSE ---
This nurse with [employer] tried to get patient up to go to CT. He totally refused. Tried to change patient at this time as well. He pushed against this nurse and asked why we were always getting on his nerves. He refused the change as well. Notified the Charge Nurse and the physcian.
[2021-11-03 21:04] LABS: Glucose Point of Care 159 mg/dL (70-110)
[2021-11-04] VITALS (7 sets, daily range): BP systolic 97–117; BP diastolic 61–82; PULSE 69–104; RESP 12–18; TEMP 36.4–37.1; O2SAT 85–98
[2021-11-04 06:28] LABS: Beta 2 Glycoprotein IGA <2.0 U/mL (<20.0); Beta 2 Glycoprotein IGM <2.0 U/mL (<20.0)
[2021-11-04] MEDS: apixaban 5 mg Tablet PO ×2 (09:00→21:26)
[2021-11-04] MEDS: BuSPIRONE 10 mg Tablet PO ×2 (09:00→18:45)
[2021-11-04] MEDS: methylphenidate 10 mg Tablet 5 MG PO ×2 (09:01→18:45)
--- NOTE | 2021-11-04 13:33 | P.PN_ITS ---
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 Vitals/I&O/Wt Last Vital Signs Temp 98.7 F 11/04/21 11:44 Pulse 80 11/04/21 11:44 Resp 12 11/04/21 11:44 BP 108/73 11/04/21 11:44 Pulse Ox 97 11/04/21 11:44 11/03/21 11/04/21 11/04/21 22:59 06:59 14:59 Intake Total 60 / 860 Balance 60 / 860 Weight last 48 hrs Weight 67.495 kg Physical Exam Narrative: Left-sided weakness Patient is still withdrawn however makes eye contact and tries to answer my questions He seems very disinterested in communication He is not watching television He was again on his stomach trying to sleep Breakfast tray untouched I open his protein shake and offered him Saturating well on room air No active chest pain Abdomen is soft Data : 10/26/21 03:36 10/26/21 03:36 A&P Assessment and plan (1) Cerebral vascular disease: Status: Acute (2) Acute right arterial ischemic stroke, middle cerebral artery (MCA): Status: Acute (3) DVT (deep venous thrombosis): Status: Acute (4) Stroke: Status: Acute Plan DVT Positive cerebral edema MCA stroke Anorexia No midline shift No new focal deficit Patient sustained a fall yesterday try to get out of bed on his own Depression I have started him on BuSpar and Ritalin Evolving stroke as per the CT head, still showing cerebral edema this cerebral edema does not need craniotomy as he does not show any signs of intracranial hypertension, no midline shift or mass-effect Steroids are not indicated for cytotoxic edema Continue Eliquis for his DVT and recent stroke Protein S deficiency hypercoagulable blood state Family counseled Awaiting placement Attestations Medical Necessity Statement*: Awaiting placement Time Spent in Patient Care: 20min Coding Level of Care Code Acute Client Relationship Manager for Latanya Neri Diagnoses Cerebral vascular disease I67.9 Acute right arterial ischemic stroke, middle cerebral artery (MCA) I63.511 DVT (deep venous thrombosis) I82.409 Stroke I63.9
[2021-11-05] VITALS: BP 123/87; PULSE 100; RESP 16; TEMP 36.4; O2SAT 96
[2021-11-05 08:00] VITALS: BP 109/70; PULSE 102; RESP 18; TEMP 36.4; O2SAT 97
[2021-11-05] MEDS: apixaban 5 mg Tablet PO ×2 (08:23→20:18)
[2021-11-05] MEDS: BuSPIRONE 10 mg Tablet PO ×2 (08:24→17:47)
[2021-11-05] MEDS: methylphenidate 10 mg Tablet 5 MG PO ×2 (08:24→17:47)
[2021-11-05 12:00] VITALS: BP 93/61; PULSE 101; RESP 18; TEMP 36.6; O2SAT 99
--- NOTE | 2021-11-05 12:11 | P.PN_ITS ---
Subjective Subjective: This morning patient is stating that he is not depressed however he was able to let his food preference known He wanted to snowballed and blue ice from the nearest gas station CT scan report reviewed, did discuss with Dr. Real who recommended conservative management, will add Zyprexa Vitals/I&O/Wt Last Vital Signs Temp 97.8 F 11/05/21 12:00 Pulse 101 H 11/05/21 12:00 Resp 18 11/05/21 12:00 BP 93/61 11/05/21 12:00 Pulse Ox 99 11/05/21 12:00 11/04/21 11/05/21 11/05/21 22:59 06:59 14:59 Intake Total 360 / 360 Output Total 0 / 0 Balance 0 / 240 360 / 360 Physical Exam Narrative: Patient is not showing any new focal deficits He is not endorsing suicidal ideation Signs of depression Breakfast tray untouched as well this morning He wanted something from the knee resuscitation Left-sided hemiplegia He is in a recliner today Signs of dehydration with sinus tachycardia Abdomen soft Saturating well on room air Data : 10/26/21 03:36 10/26/21 03:36 A&P Assessment and plan (1) Cerebral vascular disease: Status: Acute (2) Acute right arterial ischemic stroke, middle cerebral artery (MCA): Status: Acute (3) DVT (deep venous thrombosis): Status: Acute (4) Stroke: Status: Acute Plan Evolving MCA stroke No new deficits Continue Eliquis for DVT Protein S deficiency Patient will need genetic testing and molecular testing and consult with certified art therapist in [place] I did discuss that with the patient, his mother Repeat CT scan reviewed cerebral edema present Does not need steroids For his depression we will add Zyprexa at bedtime continue Ritalin and BuSpar as well Patient is dehydrated, poor p.o. intake, blood pressure is also soft, add normal saline at lower maintenance rate Pending placement Attestations Medical Necessity Statement*: Pending placement Time Spent in Patient Care: 30mins Coding Level of Care Code Acute Kosher Dietary Service Manager for Vargasg Fwd Diagnoses Cerebral vascular disease I67.9 Acute right arterial ischemic stroke, middle cerebral artery (MCA) I63.511 DVT (deep venous thrombosis) I82.409 Stroke I63.9
[2021-11-05] MEDS: sodium chloride 0.9% 1,000 ML 75 ML IV (14:47)
[2021-11-05 15:56] VITALS: BP 106/60; PULSE 111; RESP 18; TEMP 36.8; O2SAT 98
[2021-11-05 20:00] VITALS: BP 122/76; PULSE 112; RESP 16; TEMP 36.5; O2SAT 94
[2021-11-05] MEDS: OLANZapine 5 mg TABLET 2.5 MG PO (20:18)
[2021-11-05 22:00] VITALS: PULSE 109
[2021-11-06] VITALS (9 sets, daily range): BP systolic 90–111; BP diastolic 57–74; PULSE 101–125; RESP 14–18; TEMP 36.3–38.4; O2SAT 97–100
[2021-11-06] MEDS: sodium chloride 0.9% 1,000 ML 75 ML IV ×3 (04:02→20:17)
[2021-11-06] MEDS: BuSPIRONE 10 mg Tablet PO ×2 (08:52→18:09)
[2021-11-06] MEDS: apixaban 5 mg Tablet PO ×2 (08:52→20:17)
[2021-11-06] MEDS: methylphenidate 10 mg Tablet 5 MG PO ×2 (08:52→18:08)
--- NOTE | 2021-11-06 12:15 | PM.PN ---
Subjective Subjective: Patient is on Zyprexa, Ritalin and antidepressant He does endorse that he is motivated to work with PT however as per my report from ST and PT he was not willing to cooperate with them As per his mother he mostly gets active at night, in the daytime for most of my assessments he has remained very reserved, I would have to ask multiple times to get an appropriate answer for him He was able to tell me that he like the snacks he got from the gas station yesterday, nurse was very kind to bring him his favorite snacks Vitals/I&O/Wt Last Vital Signs Temp 98.5 F 11/06/21 08:00 Pulse 119 H 11/06/21 08:00 Resp 17 11/06/21 08:00 BP 105/69 11/06/21 08:00 Pulse Ox 100 11/06/21 08:00 11/05/21 11/06/21 11/06/21 22:59 06:59 14:59 Intake Total 100 / 460 1093.75 / 1553.75 200 / 200 Balance 100 / 460 1093.75 / 1553.75 200 / 200 Physical Exam Narrative: He is laying in right lateral position Not making eye contact S1, S2 Dehydrated, No new focal deficit Left-sided weakness When I asked him questions multiple times he mumbled and when I test him to get a response he said I should not touch his body He is on room air saturating well Sinus tachycardia Data : 10/26/21 03:36 10/26/21 03:36 A&P Assessment and plan (1) Cerebral vascular disease: Status: Acute (2) Acute right arterial ischemic stroke, middle cerebral artery (MCA): Status: Acute (3) DVT (deep venous thrombosis): Status: Acute (4) Stroke: Status: Acute (5) Depression: Status: Acute Plan Young male with evolving right MCA stroke, DVT, protein S deficiency Continue PT/ST Patient has not participated enthusiastically with PT Remains very lethargic and anorexic I have added Zyprexa yesterday Continue Ritalin and antidepressant BuSpar He remains slightly dehydrated, his p.o. intake has been poor despite verbal motivation and pharmacological treatment sr. strategic sourcing manager told me that [facility] might be very difficult because of his noncompliance and lack of motivation to work with PT Continue Eliquis Protein S deficiency He will need genetic and molecular testing with box car loader in [place] Siblings should get testing as well Mother updated Full code Regular diet Attestations Medical Necessity Statement*: Pending placement Time Spent in Patient Care: 30min Coding Level of Care Code Acute Finishing Trimmer for Chg Fwd Diagnoses Cerebral vascular disease I67.9 Acute right arterial ischemic stroke, middle cerebral artery (MCA) I63.511 DVT (deep venous thrombosis) I82.409 Stroke I63.9 Depression F32.A
--- NOTE | 2021-11-06 18:58 | PC.NURSE ---
Report to Felipa ALONSO at this time.
[2021-11-06] MEDS: acetaminophen 325 mg Tablet 650 MG PO (20:17)
[2021-11-06] MEDS: OLANZapine 5 mg TABLET 2.5 MG PO (20:17)
[2021-11-07] VITALS (10 sets, daily range): BP systolic 91–132; BP diastolic 54–82; PULSE 95–115; RESP 16–18; TEMP 36.8–39.1; O2SAT 95–98
[2021-11-07] MEDS: acetaminophen 325 mg Tablet 650 MG PO ×2 (05:16→17:49)
--- NOTE | 2021-11-07 07:22 | XR_ITS ---
WS: [id number] Exam: XR chest 1V portable [id number] Date/Time of Exam: 11/07/2021 7:41 AM Reason For Exam: fever No priors. Findings: The lungs are clear and fully expanded. Costophrenic angles are sharp. No infiltrates. Bronchovascula r relief appears normal. Cardiac silhouette is unremarkable. Bony elements are intact. XR/XR chest 1V portable [id number] IMPRESSION: Unremarkable chest radiograph.
--- NOTE | 2021-11-07 09:16 | PM.PN ---
Subjective Subjective: Noticed nocturnal fever No signs of meningitis No headache Patient is denying chest pain, shortness of breath, productive cough or diarrhea Chest x-ray unremarkable Blood culture requested Source of fever is unknown I would avoid adding antibiotics Patient is not endorsing any complaints He is denying aspiration Patient is stating a friend visited him yesterday who brought him some food I will do urine drug screen, urinalysis Vitals/I&O/Wt Last Vital Signs Temp 98.6 F 11/07/21 07:15 Pulse 115 H 11/07/21 07:15 Resp 16 11/07/21 07:15 BP 91/54 11/07/21 07:15 Pulse Ox 97 11/07/21 07:15 11/06/21 11/07/21 11/07/21 22:59 06:59 14:59 Intake Total 1408.75 / 1728.75 360 / 2088.75 Balance 1408.75 / 1728.75 360 / 2088.75 Physical Exam Narrative: Patient is laying comfortably in his bed No signs of meningitis, no signs of stroke No active chest pain or diarrhea or headache Abdomen is soft Saturating well on room air No new focal deficit No audible stridor or wheezing Saturating well on room air IV line infiltrated? Data : 10/26/21 03:36 10/26/21 03:36 Micro: Microbiology 11/07/21 06:29 Blood Culture - Preliminary Blood SPECIMEN COLLECTED 11/07/21 06:27 Blood Culture - Preliminary Blood SPECIMEN COLLECTED A&P Assessment and plan (1) Fever: Status: Acute (2) Depression: Status: Acute (3) Cerebral vascular disease: Status: Acute (4) Acute right arterial ischemic stroke, middle cerebral artery (MCA): Status: Acute (5) DVT (deep venous thrombosis): Status: Acute (6) Stroke: Status: Acute Plan Febrile overnight No source of fever identified yet, IV line infiltration? No signs of meningitis No diarrhea chest pain shortness of breath or dysuria Check drug screen A friend visited him yesterday and brought him some food as well DVT related fever? No active signs of infection Chest x-ray unremarkable Blood culture obtained Will do CBC, CMP, lactic CRP and procalcitonin Discontinue Ritalin Continue Zyprexa and BuSpar PT evaluation on daily basis Awaiting placement Did speak with his mother yesterday, mother is stating that they would prefer rehab as they want people to take care of him at home both mother and her daughter work and wontbe able to help him out during work hours Continue Eliquis Regular diet Attestations Medical Necessity Statement*: Continue medical management Time Spent in Patient Care: 30 Coding Level of Care Code Acute Production Operations Manager for Chg Fwd Diagnoses Fever R50.9 Depression F32.A Cerebral vascular disease I67.9 Acute right arterial ischemic stroke, middle cerebral artery (MCA) I63.511 DVT (deep venous thrombosis) I82.409 Stroke I63.9
[2021-11-07 09:59] LABS: Lactate (Lactic Acid level) 0.7 mmol/L (0.5-2.2)
[2021-11-07 10:10] LABS: Procalcitonin 0.06 ng/mL (0-0.5)
[2021-11-07] MEDS: BuSPIRONE 10 mg Tablet PO ×2 (10:11→17:49)
[2021-11-07] MEDS: apixaban 5 mg Tablet PO ×2 (10:12→21:03)
[2021-11-07 10:21] LABS: Alanine Aminotransferase 25 U/L (0-41); Albumin Level 3.6 g/dL (3.5-5.2); Alkaline Phosphatase 61 IU/L (40-130); Anion Gap 10.3 (5-19); Aspartate Amino Transferase 26 U/L (0-40); Blood Urea Nitrogen 12 mg/dL (6-20); Calcium 8.4 mg/dL (8.5-10.5); Carbon Dioxide 27 mmol/L (22-29); Chloride 100 mmol/L (98-107); Globulin 3.8 g/dL (1.3-4.6); Glomerular Filtration Rate 109.3 mL/min (90-130); Glucose 85 mg/dL (65-115); Osmolality Calculated 275 mOsm/kg (285-295); Potassium 4.3 mmol/L (3.5-5.1); Sodium 133 mmol/L (136-145); Total Bilirubin 0.4 mg/dL (0.15-1.2); Total Protein 7.4 g/dL (6.6-8.7)
[2021-11-07] MEDS: sodium chloride 0.9% 1,000 ML 75 ML IV (11:01)
[2021-11-07 11:06] LABS: Basophils % 0.7 %; Eosinophils % 0.7 %; Hematocrit 35.2 % (42.0-52.0); Hemoglobin 12.8 g/dL (11.7-16.6); Lymphocytes # 1.1 10^3/uL (0.8-4.8); Lymphocytes % 27.9 %; Mean Corpuscular HGB Conc 36.4 g/dL (30.0-36.0); Mean Corpuscular Hemoglobin 32.1 pg (28.0-34.0); Mean Corpuscular Volume 88.2 fl (80-94); Mean Platelet Volume 10.1 fL (7.4-10.4); Monocytes # 0.5 10^3/uL (0.2-0.9); Monocytes % 13.1 %; Neutrophils # 2.32 10^3/uL (1.8-7.7); Neutrophils % 57.4 %; Nucleated Red Blood Cells % 0 %; Platelet Count 262 10^3/cmm (130-400); Red Blood Count 3.99 10^6/uL (4.1-5.3); Red Cell Distribution Width 11.5 % (12.1-15.1); White Blood Count 4.1 10^3/uL (4.0-10.0)
--- NOTE | 2021-11-07 16:34 | PC.NURSE ---
IV access was notified that pt pulled IV, when attempting to place another, pt refused. This nurse attempted to educate pt on the importance of IV access for his care and safety. pt still did not want one, stating I didn't want the first one . Dr Fontana informed nurse to leave it for now .
[2021-11-07 23:23] LABS: Factor 5 Leiden Mutation NEGATIVE
[2021-11-08] VITALS (8 sets, daily range): BP systolic 106–120; BP diastolic 53–73; PULSE 104–125; RESP 13–78; TEMP 36.8–37.7; O2SAT 96–100
[2021-11-08 05:47] LABS: Basophils % 0.3 %; Eosinophils % 0.5 %; Hematocrit 34.8 % (42.0-52.0); Hemoglobin 12.6 g/dL (11.7-16.6); Lymphocytes % 27.1 %; Mean Corpuscular HGB Conc 36.2 g/dL (30.0-36.0); Mean Corpuscular Hemoglobin 32.4 pg (28.0-34.0); Mean Corpuscular Volume 89.5 fl (80-94); Mean Platelet Volume 9.8 fL (7.4-10.4); Monocytes # 0.5 10^3/uL (0.2-0.9); Monocytes % 12.3 %; Neutrophils # 2.18 10^3/uL (1.8-7.7); Neutrophils % 59.8 %; Nucleated Red Blood Cells % 0 %; Platelet Count 244 10^3/cmm (130-400); Red Blood Count 3.89 10^6/uL (4.1-5.3); Red Cell Distribution Width 11.7 % (12.1-15.1); White Blood Count 3.7 10^3/uL (4.0-10.0)
[2021-11-08 06:14] LABS: Anion Gap 14.2 (5-19); Blood Urea Nitrogen 10 mg/dL (6-20); Calcium 8.3 mg/dL (8.5-10.5); Carbon Dioxide 25 mmol/L (22-29); Chloride 98 mmol/L (98-107); Glomerular Filtration Rate 123.4 mL/min (90-130); Glucose 93 mg/dL (65-115); Osmolality Calculated 275 mOsm/kg (285-295); Potassium 4.2 mmol/L (3.5-5.1); Sodium 133 mmol/L (136-145)
[2021-11-08] MEDS: BuSPIRONE 10 mg Tablet PO ×2 (09:15→17:09)
[2021-11-08] MEDS: nicotine 14 mg Patch 1 PATCH TRANSDERMA (09:15)
[2021-11-08] MEDS: apixaban 5 mg Tablet PO ×2 (09:15→20:54)
--- NOTE | 2021-11-08 12:38 | PM.PN ---
Subjective Subjective: I do believe his fever is related to his hypercoagulable state No active source of infection and for No need of antibiotics He is getting tachycardic He is not showing signs of hypoxia Cultures negative to date IV line has been removed from his right arm This morning he did not make eye contact with me and mumbled some of the answers to my questions He denies chest pain, shortness of breath, nausea, vomiting diarrhea As per the PT staff he has been very lethargic to the point that he will not even use urinal, he soiled himself with urine Vitals/I&O/Wt Last Vital Signs Temp 98.2 F 11/08/21 07:47 Pulse 120 H 11/08/21 07:47 Resp 13 11/08/21 07:47 BP 117/65 11/08/21 12:00 Pulse Ox 96 11/08/21 12:00 11/07/21 11/08/21 11/08/21 22:59 06:59 14:59 Intake Total 380 / 1943.75 990 / 2933.75 707.5 / 707.5 Balance 380 / 1943.75 990 / 2933.75 707.5 / 707.5 Physical Exam Narrative: Laying flat Right lateral position Saturating well on room air Sinus tachycardia Signs of dehydration No new focal deficit Left-sided hemiplegia Multiple skin tattoos Right arm is not painful Not very cooperative during my evaluation No signs of meningitis No new focal deficit Abdomen is soft Data : 11/08/21 04:51 11/08/21 04:51 Micro: Microbiology 11/07/21 06:29 Blood Culture - Preliminary Blood NEGATIVE TO DATE 11/07/21 06:27 Blood Culture - Preliminary Blood NEGATIVE TO DATE A&P Assessment and plan (1) Fever: Status: Acute (2) Depression: Status: Acute (3) Cerebral vascular disease: Status: Acute (4) Acute right arterial ischemic stroke, middle cerebral artery (MCA): Status: Acute (5) DVT (deep venous thrombosis): Status: Acute (6) Stroke: Status: Acute Plan Febrile episodes could be related to underlying hypercoagulable state He has multiple DVTs in upper lower extremities Right arm IV line has been removed Is getting sinus tachycardic, my concern is also related to PE which can also cause fever however obtaining CTA chest would not change any management, he is not hypoxic I would hold off on requesting CT chest for now Continue Eliquis Continue antidepressants and olanzapine Nicotine patch for craving Regular diet No signs of aspiration Chest x-ray normal It is very difficult to find placement for him at [place] Full code Attestations Medical Necessity Statement*: Awaiting placement Time Spent in Patient Care: 20 Coding Level of Care Code Acute Enlisted Aircrew/Aerial Observer/Gunner for Chg Fwd Diagnoses Fever R50.9 Depression F32.A Cerebral vascular disease I67.9 Acute right arterial ischemic stroke, middle cerebral artery (MCA) I63.511 DVT (deep venous thrombosis) I82.409 Stroke I63.9
[2021-11-08] MEDS: OLANZapine 5 mg TABLET 2.5 MG PO (20:54)
[2021-11-09] VITALS (7 sets, daily range): BP systolic 94–132; BP diastolic 54–81; PULSE 68–106; RESP 16–18; TEMP 36.3–37.2; O2SAT 95–97
--- NOTE | 2021-11-09 05:56 | PC.NURSE ---
Patient refusing to eat. Patient refusing lab draws. Patient refusing IV.
[2021-11-09] MEDS: BuSPIRONE 10 mg Tablet PO ×2 (10:16→18:07)
[2021-11-09] MEDS: apixaban 5 mg Tablet PO ×2 (10:16→20:58)
--- NOTE | 2021-11-09 12:19 | PM.PN ---
Subjective Subjective: Afebrile since we have taken out his IV from his right arm No active source of infection identified No active chest pain, diarrhea, shortness of breath, rashes Vitals/I&O/Wt Last Vital Signs Temp 98.4 F 11/09/21 11:25 Pulse 106 H 11/09/21 11:25 Resp 16 11/09/21 11:25 BP 94/54 11/09/21 11:25 Pulse Ox 97 11/09/21 11:25 11/08/21 11/09/21 11/09/21 22:59 06:59 14:59 Intake Total 120 / 120 Balance 120 / 120 Physical Exam Narrative: Afebrile Hemodynamically stable No signs of meningitis No new stroke features Abdomen soft Skin tattoos No active diarrhea No acute respite distress Saturating well on room air Sinus tachycardia Data : 11/08/21 04:51 11/08/21 04:51 A&P Assessment and plan (1) Fever: Status: Acute (2) Depression: Status: Acute (3) Cerebral vascular disease: Status: Acute (4) Acute right arterial ischemic stroke, middle cerebral artery (MCA): Status: Acute (5) DVT (deep venous thrombosis): Status: Acute (6) Stroke: Status: Acute Plan Fever of unknown origin No signs of endocarditis Transesophageal echo did not show any vegetation Afebrile since we took out his IV from his right arm IV line infiltration Thrombosis related fever? DERRICK negative No signs of vasculitis No signs of meningitis No cough or diarrhea Blood cultures negative No need of antibiotics Monitor for now Gentle fluid hydration if he becomes sinus tachycardic I did try to motivate him today to work with physical therapy He has been very noncooperative and demotivated to get out of his bed For his depression continue olanzapine and BuSpar Ritalin has been discontinued Full code Attestations Medical Necessity Statement*: Awaiting placement Time Spent in Patient Care: 30mins Coding Level of Care Code Acute Epitaxial Reactor Operator for Latanya Neri Diagnoses Fever R50.9 Depression F32.A Cerebral vascular disease I67.9 Acute right arterial ischemic stroke, middle cerebral artery (MCA) I63.511 DVT (deep venous thrombosis) I82.409 Stroke I63.9
[2021-11-09] MEDS: OLANZapine 5 mg TABLET 2.5 MG PO (20:58)
[2021-11-10] VITALS (7 sets, daily range): BP systolic 99–107; BP diastolic 56–70; PULSE 104–116; RESP 12–18; TEMP 36.8–37.4; O2SAT 94–98
--- NOTE | 2021-11-10 09:11 | PC.NURSE ---
Spoke with Dr. Fontana via [facility] about patient's blood pressure and he okayed me not giving the fluid bolus
[2021-11-10] MEDS: apixaban 5 mg Tablet PO ×2 (09:29→20:07)
[2021-11-10] MEDS: BuSPIRONE 10 mg Tablet PO ×2 (09:29→17:39)
--- NOTE | 2021-11-10 11:14 | P.PN_ITS ---
Subjective Subjective: Afebrile Patient is not motivated to eat at all I do discussed with him and try to motivate him on daily basis, Denying chest pain shortness of breath fever diarrhea productive cough headache Vitals/I&O/Wt Last Vital Signs Temp 99.2 F 11/10/21 08:07 Pulse 110 H 11/10/21 08:07 Resp 16 11/10/21 08:07 BP 99/65 11/10/21 08:07 Pulse Ox 96 11/10/21 08:07 11/09/21 11/10/21 11/10/21 22:59 06:59 14:59 Intake Total 480 / 600 240 / 240 Balance 480 / 600 240 / 240 Physical Exam Narrative: There is no new neurological changes Signs of depression Does not make eye contact Takes time to answer questions and he only uses a few words to answer Looks dehydrated Abdomen soft No signs of meningitis No new focal deficit Multiple skin tattoos Breathing well on room air, no signs of hypoxia Data : 11/08/21 04:51 11/08/21 04:51 Micro: Microbiology 11/07/21 06:27 Blood Culture - Preliminary Blood Gram positive cocci A&P Assessment and plan (1) Fever: Status: Acute (2) Depression: Status: Acute (3) Cerebral vascular disease: Status: Acute (4) Acute right arterial ischemic stroke, middle cerebral artery (MCA): Status: Acute (5) DVT (deep venous thrombosis): Status: Acute (6) Stroke: Status: Acute Plan Fever has subsided Likely related to IV line infiltration Bilateral DVT Continue Eliquis Depression Continue Zyprexa and BuSpar Low blood pressure, patient refusing labs and IV line Systolic blood pressure 105 mmhg this morning No signs of meningitis or new focal deficits Cultures negative to date Attestations Medical Necessity Statement*: Awaiting placement Time Spent in Patient Care: 20 Coding Level of Care Code Acute Ball Thread Machine Tender for g Fwd Diagnoses Fever R50.9 Depression F32.A Cerebral vascular disease I67.9 Acute right arterial ischemic stroke, middle cerebral artery (MCA) I63.511 DVT (deep venous thrombosis) I82.409 Stroke I63.9
[2021-11-10 11:22] LABS: Bacillus cereus group Not Detected (NOT DETECT); Bacillus subtillis group Not Detected (NOT DETECT); Corynebacterium Not Detected (NOT DETECT); Cutibacterium acnes (P.acnes) Not Detected (NOT DETECT); Enterococcus Not Detected (NOT DETECT); Enterococcus faecalis Not Detected (NOT DETECT); Enterococcus faecium Not Detected (NOT DETECT); Lactobacillus species Not Detected (NOT DETECT); Listeria Not Detected (NOT DETECT); Listeria monocytogenes Not Detected (NOT DETECT); Micrococcus Not Detected (NOT DETECT); Pan Candida Not Detected (NOT DETECT); Pan Gram-Negative Not Detected (NOT DETECT); Staphylococcus epidermidis Not Detected (NOT DETECT); Staphylococcus lugdunensis Not Detected (NOT DETECT); Staphylococcus species Detected (NOT DETECT); Streptococcus agalactiae Not Detected (NOT DETECT); Streptococcus anginosus group Not Detected (NOT DETECT); Streptococcus pneumoniae Not Detected (NOT DETECT); Streptococcus pyogenes Not Detected (NOT DETECT); Streptococcus species Not Detected (NOT DETECT); mecA Not Detected (NOT DETECT); mecC Not Detected (NOT DETECT)
[2021-11-10] MEDS: OLANZapine 5 mg TABLET 2.5 MG PO (20:07)
[2021-11-10] MEDS: nicotine 7 mg Patch 1 PATCH TRANSDERMA (20:07)
--- NOTE | 2021-11-11 03:51 | PC.NURSE ---
Addendum entered by Michell Broderick RN 11/11/21 04:03: Housekeeping called to mop floor in patient's room per mother's request. Charge nurse notified that mother is requesting it to be mopped daily. Original Note: Patient's mother requesting that patient's room be mopped every day. Patient's mother requesting that patient have something kept in his left hand and that his left hand be worked with.
[2021-11-11 04:00] VITALS: BP 103/66; PULSE 110; RESP 16; TEMP 36.9; O2SAT 98
[2021-11-11 08:00] VITALS: BP 100/65; PULSE 98; RESP 16; O2SAT 100
[2021-11-11] MEDS: apixaban 5 mg Tablet PO ×2 (09:15→20:13)
[2021-11-11] MEDS: BuSPIRONE 10 mg Tablet PO ×2 (09:15→17:45)
--- NOTE | 2021-11-11 10:44 | PC.NURSE ---
At 1035 11/11/2021 the patient was in the room with his mother and community health nursing director. They were cleaning him up and making his bed. Patient was standing at bedside with his mother present while community health nursing director was making the bed. Patient turned and feel, hitting his head on the wall when mother walked away. Called Dr. Fontana and notified him of the situation. Dr. Fontana ordered a head CT.
--- NOTE | 2021-11-11 10:47 | CTR_ITS ---
PROCEDURE INFORMATION: Exam: CT Head Without Contrast Exam date and time: 11/11/2021 11:10 AM Age: 26 years old Clinical indication: Injury or trauma; Fall; Blunt trauma (contusions or hematomas); Consciousness not specified TECHNIQUE: Imaging protocol: Computed tomography of the head without contrast. Radiation optimization: All CT scans at this facility use at least one of these dose optimization techniques: automated exposure control; mA and/or kV adjustment per patient size (includes targeted exams where dose is matched to clinical indication); or iterative reconstruction. COMPARISON: CT head wo con* [id number] 11/04/2021 9:25 AM RADIATION DOSE METRICS: Total DLP (mGy-cm): 1096.91 FINDINGS: Brain: There is encephalomalacia in the right frontal lobe and basal ganglia consistent with evolving recent infarct. There is no intracranial hemorrhage midline shift or significant mass effect. Tiny old lacunar infarcts are present along the left basal ganglia. Cerebral ventricles: No ventriculomegaly. Paranasal sinuses: Visualized sinuses are unremarkable. No fluid levels. Mastoid air cells: Visualized mastoid air cells are well aerated. Bones/joints: Unremarkable. No acute fracture. Soft tissues: Unremarkable. CT/CT head wo con* [id number] IMPRESSION: 1. Evolving nonhemorrhagic infarct in the distribution of the right middle cerebral artery. 2. No acute abnormality or intracranial hemorrhage.
--- NOTE | 2021-11-11 11:13 | P.PN_ITS ---
Subjective Subjective: This morning mother is at the bedside and patient is much more responsive alert awake and had eaten his full breakfast He also worked with physical therapist After his PT session he felt while they were trying to set him up with the bed I have requested CT head without contrast Vitals/I&O/Wt Last Vital Signs Temp 98.5 F 11/11/21 04:00 Pulse 98 11/11/21 08:00 Resp 16 11/11/21 08:00 BP 100/65 11/11/21 08:00 Pulse Ox 100 11/11/21 08:00 11/10/21 11/11/21 11/11/21 22:59 06:59 14:59 Intake Total 477 / 717 240 / 240 Balance 477 / 717 240 / 240 Physical Exam Narrative: Nonfocal neuro exam S1, S2 Signs of dehydration improving Hemodynamically stable No new focal deficit Awake and alert No signs of meningitis Abdomen soft Saturating well on room air Data : 11/08/21 04:51 11/08/21 04:51 Micro: Microbiology 11/07/21 06:27 Blood Culture - Preliminary Blood Coagulase negativ staphylococc A&P Assessment and plan (1) Fever: Status: Acute (2) Depression: Status: Acute (3) Cerebral vascular disease: Status: Acute (4) Acute right arterial ischemic stroke, middle cerebral artery (MCA): Status: Acute (5) DVT (deep venous thrombosis): Status: Acute (6) Stroke: Status: Acute Plan DVT Subacute CVA Recurrent falls Demotivated Depression Deconditioned He would definitely benefit from long-term acute care/rehab I have tried multiple facilities he has not been accepted yet call or contact centre manager also working on his case Mother at the bedside I have left a voicemail to a facility in [place] today Continue BuSpar and olanzapine Patient is afebrile now since we removed his IV line from right arm Full code Regular diet Protein S deficiency We will need genetic testing and hematology consult Attestations Medical Necessity Statement*: Awaiting placement Time Spent in Patient Care: 30 Coding Level of Care Code Acute Brine Well Operator for Chg Fwd Diagnoses Fever R50.9 Depression F32.A Cerebral vascular disease I67.9 Acute right arterial ischemic stroke, middle cerebral artery (MCA) I63.511 DVT (deep venous thrombosis) I82.409 Stroke I63.9
[2021-11-11 12:00] VITALS: BP 110/64; PULSE 97; RESP 16; TEMP 36.5; O2SAT 100
[2021-11-11 16:00] VITALS: BP 110/73; PULSE 105; RESP 16; TEMP 36.9; O2SAT 100
[2021-11-11 20:00] VITALS: BP 117/69; PULSE 76; RESP 16; TEMP 36.6; O2SAT 95
[2021-11-11] MEDS: OLANZapine 5 mg TABLET 2.5 MG PO (20:13)
[2021-11-12] VITALS: BP 117/75; PULSE 93; RESP 17; TEMP 36.8; O2SAT 94
[2021-11-12 04:00] VITALS: BP 121/80; PULSE 95; RESP 17; TEMP 36.8; O2SAT 98
[2021-11-12 08:00] VITALS: BP 141/82; TEMP 37.1
[2021-11-12] MEDS: apixaban 5 mg Tablet PO ×2 (09:10→20:45)
[2021-11-12] MEDS: BuSPIRONE 10 mg Tablet PO ×2 (09:10→17:44)
[2021-11-12 11:34] VITALS: BP 118/82; PULSE 63; RESP 12; TEMP 36.6; O2SAT 95
--- NOTE | 2021-11-12 16:39 | P.PN_ITS ---
Subjective Subjective: His blood pressure has significantly improved after improvement in his p.o. intake, his mother was a definitely positive impact on his health his p.o. intake was better his interaction with the staff was much more reciprocal We will try [facility] [phone] Vitals/I&O/Wt Last Vital Signs Temp 98 F 11/12/21 11:34 Pulse 63 11/12/21 11:34 Resp 12 11/12/21 11:34 BP 118/82 11/12/21 11:34 Pulse Ox 95 11/12/21 11:34 11/12/21 11/12/21 11/12/21 06:59 14:59 22:59 Intake Total 1080 / 1080 Balance 1080 / 1080 Physical Exam Narrative: No new focal deficit Hemodynamically stable Saturating well on room air Awake and alert Abdomen soft Euvolemic Signs of depression slightly improved Data : 11/08/21 04:51 11/08/21 04:51 Micro: Microbiology 11/07/21 06:27 Blood Culture - Final Blood Coagulase negativ staphylococc 11/07/21 06:29 Blood Culture - Final Blood NO GROWTH AFTER 5 DAYS A&P Assessment and plan (1) Fever: Status: Acute (2) Acute right arterial ischemic stroke, middle cerebral artery (MCA): Status: Acute (3) Cerebral vascular disease: Status: Acute (4) Depression: Status: Acute (5) DVT (deep venous thrombosis): Status: Acute (6) Stroke: Status: Acute Plan 26-year-old male with stroke multiple DVTs, protein S deficiency Continue Eliquis He definitely will benefit from genetic testing, will try [facility] in [place] Febrile events subsided Blood pressure improved with better p.o. intake Depression: Continue BuSpar and olanzapine He is full code Spoke with his mother DVT prophylaxis on board Repeated CT head after he sustained a fall Awaiting placement Attestations Medical Necessity Statement*: Awaiting placement Time Spent in Patient Care: 30 Coding Level of Care Code Acute Electric Cutter Operator for Vargasg Fwd Diagnoses Fever R50.9 Acute right arterial ischemic stroke, middle cerebral artery (MCA) I63.511 Cerebral vascular disease I67.9 Depression F32.A DVT (deep venous thrombosis) I82.409 Stroke I63.9
[2021-11-12 20:00] VITALS: BP 103/72; PULSE 97; RESP 17; TEMP 37.4; O2SAT 96
[2021-11-12] MEDS: OLANZapine 5 mg TABLET 2.5 MG PO (20:45)
[2021-11-13 04:00] VITALS: BP 103/73; PULSE 104; RESP 17; TEMP 37.2; O2SAT 96
--- NOTE | 2021-11-13 06:32 | PC.NURSE ---
patient exhibited lack of safety awareness, last noc food was delivered and patient assisted to chair for better eating position, patient turned call light on when ready to get back in bed, once table was removed from in front of patient, patient stood up and nurse barely able to turn around and hold patient upright and amb to bed. patient educated about safety and 2 people needs to assist patient or have use of walker. patient verbalized understanding. This morning patient turned call light on requesting use of bathroom, due to last nights event BSC used. while patient was sitting patient moving BSC around, nurse educating patient about how unsafe moving BSC while he is on it, patient stated I am not getting up , patient got BSC turned where he is facing the side of the bed then patient jumped up and threw self in the bed. patient strongly encouraged to use safety measures in place and that staff is always with patient while out of bed to insure safety. patient very impulsive.
[2021-11-13 07:30] VITALS: BP 115/71; PULSE 98; RESP 14; TEMP 36.9; O2SAT 99
[2021-11-13] MEDS: apixaban 5 mg Tablet PO ×2 (08:01→20:42)
[2021-11-13] MEDS: BuSPIRONE 10 mg Tablet PO ×2 (08:01→17:01)
--- NOTE | 2021-11-13 10:28 | PC.NURSE ---
In room to give patient pain medication because patient had stated he was hurting to the assistant in nursing. Patient appears to be sleeping. Asked patient if he was hurting and patient denies any pain.
--- NOTE | 2021-11-13 11:51 | PM.PN ---
Subjective Subjective: We have tried multiple facilities and unfortunately we have been unsuccessful to find appropriate placement for this gentleman I have tried to call [facility] in [place], did not have any beds available at this point As per his mother he does not carry the diagnosis of Asperger He sustained another fall Blood pressure fluctuates, can do IV fluid trial Vitals/I&O/Wt Last Vital Signs Temp 98.4 F 11/13/21 07:30 Pulse 98 11/13/21 07:30 Resp 14 11/13/21 07:30 BP 115/71 11/13/21 07:30 Pulse Ox 99 11/13/21 07:30 11/12/21 11/13/21 11/13/21 22:59 06:59 14:59 Intake Total 120 / 1200 240 / 1440 120 / 120 Balance 120 / 1200 240 / 1440 120 / 120 Physical Exam Narrative: Today patient seems very withdrawn He was laying in his bed without his gown He did not ask any questions Did not make eye contact No new focal deficit Euvolemic S1, S2 Afebrile Currently saturating well on room air Data : 11/08/21 04:51 11/08/21 04:51 Micro: Microbiology 11/07/21 06:27 Blood Culture - Final Blood Coagulase negativ staphylococc A&P Assessment and plan (1) Fever: Status: Acute (2) Depression: Status: Acute (3) Cerebral vascular disease: Status: Acute (4) Acute right arterial ischemic stroke, middle cerebral artery (MCA): Status: Acute (5) DVT (deep venous thrombosis): Status: Acute (6) Stroke: Status: Acute Plan Awaiting placement Continue Eliquis for DVT Protein S deficiency DERRICK negative Recurrent falls Patient tries to get up without notifying the nurses bed alarms are in place Whenever his mother visits him his appetite mood and energy improves, today blood pressure is fluctuating, suffering from anorexia and I would avoid to add mirtazapine which has sedation as side effect order processing manager diligently working on his case to find him a bed at appropriate facility He has been refused by the LTAC in [facility] is at full capacity in [place] His insurance is only covering rehab in [place] and not locally Fever subsided after removal of IV line Attestations Medical Necessity Statement*: Awaiting placement Time Spent in Patient Care: 10 Coding Level of Care Code Acute Family Coach for Chg Fwd Diagnoses Fever R50.9 Depression F32.A Cerebral vascular disease I67.9 Acute right arterial ischemic stroke, middle cerebral artery (MCA) I63.511 DVT (deep venous thrombosis) I82.409 Stroke I63.9
[2021-11-13 11:59] VITALS: BP 89/61; PULSE 92; RESP 18; TEMP 36.5; O2SAT 99
--- NOTE | 2021-11-13 12:24 | PC.NURSE ---
Dr. Fontana notified of blood pressure and IVF ordered as patient tolerates. Will attempt to start IV and administer.
--- NOTE | 2021-11-13 12:32 | PC.NURSE ---
Dr. Fontana notified that patient states to physical therapy that he transferred himself from chair to bed and fell on his knees during transfer. This was reportedly not a witnessed fall. This RN went to assess patient and patient denies falling. Chair alarm was in place but didn't alarm. Alysha was notified of this work order. Pt is in bed and denying a fall or pain. Pt knees appear normal no bruising and abrasions noted. No additional orders received at this time
[2021-11-13 15:26] VITALS: BP 107/68; PULSE 107; RESP 16; TEMP 36.9; O2SAT 98
--- NOTE | 2021-11-13 16:34 | PC.NURSE ---
Pt found putting himself back to bed without attempting to call for help. Pt's chair alarm was going off. Pt put back in bed and educated bond analyst dont fall.
[2021-11-13 19:24] VITALS: BP 110/65; PULSE 107; RESP 16; TEMP 36.9; O2SAT 93
[2021-11-13] MEDS: OLANZapine 5 mg TABLET 2.5 MG PO (20:42)
[2021-11-13 23:36] VITALS: BP 104/69; PULSE 101; RESP 18; TEMP 36.7
[2021-11-14 05:21] VITALS: BP 106/75; PULSE 94; RESP 16; TEMP 36.9
[2021-11-14 07:47] VITALS: BP 101/72; PULSE 103; RESP 16; TEMP 36.6; O2SAT 97
[2021-11-14] MEDS: apixaban 5 mg Tablet PO ×2 (08:49→20:19)
[2021-11-14] MEDS: BuSPIRONE 10 mg Tablet PO ×2 (08:49→16:37)
--- NOTE | 2021-11-14 09:11 | PC.NURSE ---
This nurse present in room with patient while he was sitting in his chair with chair alarm connected and patient quickly transferred himself from chair to bed without requesting help. When asked why the patient did this he told this nurse it's not very far. Educated patient of safety and call don't fall.
[2021-11-14 11:00] VITALS: BP 115/88; PULSE 99; RESP 18; TEMP 36.7; O2SAT 94
--- NOTE | 2021-11-14 11:06 | P.PN_ITS ---
Subjective Subjective: Patient has been moved to a different room for better monitoring, he has had recurrent falls Today he is stating that he is feeling hungry and able to eat his diet Blood pressure is better Still signs of tachycardia in low 100s Afebrile Vitals/I&O/Wt Last Vital Signs Temp 97.8 F 11/14/21 07:47 Pulse 103 H 11/14/21 07:47 Resp 16 11/14/21 07:47 BP 101/72 11/14/21 07:47 Pulse Ox 97 11/14/21 07:47 11/13/21 11/14/21 11/14/21 22:59 06:59 14:59 Intake Total 120 / 240 297 / 537 Balance 120 / 240 297 / 537 Physical Exam Narrative: no new focal deficits Afebrile Patient: Improved Abdomen is soft Multiple skin tattoos No active headache Abdomen soft Saturating well on room air Data : 11/08/21 04:51 11/08/21 04:51 A&P Assessment and plan (1) Fever: Status: Acute (2) Depression: Status: Acute (3) Cerebral vascular disease: Status: Acute (4) Acute right arterial ischemic stroke, middle cerebral artery (MCA): Status: Acute (5) DVT (deep venous thrombosis): Status: Acute (6) Stroke: Status: Acute Plan Patient has been moved to a different room for closer monitoring Continue Eliquis for DVT Protein S deficiency Discontinue IV fluids He is able to tolerate p.o. diet Awaiting placement Continue BuSpar and Zyprexa Attestations Medical Necessity Statement*: Awaiting placement Time Spent in Patient Care: 10 Coding Level of Care Code Acute Pharmacy Scheduler for Latanya Neri Diagnoses Fever R50.9 Depression F32.A Cerebral vascular disease I67.9 Acute right arterial ischemic stroke, middle cerebral artery (MCA) I63.511 DVT (deep venous thrombosis) I82.409 Stroke I63.9
[2021-11-14 11:40] VITALS: BP 86/53; PULSE 105; RESP 12; TEMP 36.5; O2SAT 95
[2021-11-14 19:32] VITALS: BP 106/66; PULSE 100; RESP 14; TEMP 36.6; O2SAT 93
[2021-11-14] MEDS: OLANZapine 5 mg TABLET 2.5 MG PO (20:19)
[2021-11-15] VITALS (7 sets, daily range): BP systolic 96–110; BP diastolic 56–72; PULSE 97–116; RESP 12–18; TEMP 36.6–37.9; O2SAT 91–98
[2021-11-15] MEDS: apixaban 5 mg Tablet PO ×2 (08:32→21:44)
[2021-11-15] MEDS: BuSPIRONE 10 mg Tablet PO ×2 (08:32→17:11)
--- NOTE | 2021-11-15 10:24 | P.PN_ITS ---
Subjective Subjective: I have requested Dr. Greene to see if she would benefit from neuropsych Patient is stating he has never been diagnosed with Asperger's syndrome he just thought he had it but officially has never been diagnosed with it No overnight events Getting tachycardic, poor p.o. intake Vitals/I&O/Wt Last Vital Signs Temp 98.8 F 11/15/21 08:00 Pulse 102 H 11/15/21 08:00 Resp 12 11/15/21 08:00 BP 104/71 11/15/21 08:00 Pulse Ox 97 11/15/21 08:00 11/14/21 11/15/21 11/15/21 22:59 06:59 14:59 Intake Total 240 / 480 120 / 120 Balance 240 / 480 120 / 120 Physical Exam Narrative: No new focal deficit Does not make eye contact Laying in his bed He does not have his brief Slightly dehydrated Skin tattoos Satting well on room air No active chest pain No signs of meningitis Abdomen soft Breakfast tray, he only ate about 10-15% Data : 11/08/21 04:51 11/08/21 04:51 A&P Assessment and plan (1) Fever: Status: Acute (2) Depression: Status: Acute (3) Cerebral vascular disease: Status: Acute (4) Acute right arterial ischemic stroke, middle cerebral artery (MCA): Status: Acute (5) DVT (deep venous thrombosis): Status: Acute (6) Stroke: Status: Acute Plan Protein S deficiency DVT Sinus tachycardia Dehydration Depression Neuropsych evaluation today by Dr. Greene As per the lead case manager we still waiting on response from long-term rehab at [place] Patient is stating that he has not officially been diagnosed with Asperger, mother also denies Asperger syndrome His p.o. intake has been poor Will touch with Dr. Greene she would be a good candidate for mirtazapine Continue BuSpar and Zyprexa If his tachycardia stays persistent might have to do IV fluid hydration again Full code Waiting placement Attestations Medical Necessity Statement*: Awaiting placement Time Spent in Patient Care: 20 Coding Level of Care Code Acute Marine Service Station Attendant for Chg Fwd Diagnoses Fever R50.9 Depression F32.A Cerebral vascular disease I67.9 Acute right arterial ischemic stroke, middle cerebral artery (MCA) I63.511 DVT (deep venous thrombosis) I82.409 Stroke I63.9
--- NOTE | 2021-11-15 12:59 | W.PM.PSYCONS ---
Providers/Reason for Consult Consulting Physican/Specialty*: Jacky Greene MD. Psychiatry. Reason for Consult*: Evaluation of psychiatric presentation and/or mental health needs Attending Physician: Josy Fontana MD Psych Consult HPI History of Present Illness Brigitte Yusuf is a 26 year old male who presented to the emergency department with following report: ADDENDUMAt 7:55 PM, case was discussed with [facility] tells me that at the present time, patient does not have a bed. Given the fact the patient is not a candidate for mechanical thrombectomy or tPA, I discussed case with Dr. Real who recommended inpatient mission at this time. Dr. Real recommended Plavix and aspirin at this time. Patient will be admitted to the hospital for ischemic stroke workup. Addendum Dictated By: Charmaine Mascorro MDAddendum Signed By:<Electronically signed by Charmaine Mascorro MD>Signed Date/Time:10/24/212018Addendum Cosigned By: HPI - General Adult General: Chief complaint: Neuro Symptoms/Deficit Stated complaint: L SIDED WEAKNESS/ FACIAL DROOP Time Seen by Provider: 10/24/21 11:24 History of Present Illness: Patient is a 26-year-old male w/ hx of Asperger's disease and smoking presenting to the emergency room for concerns of left arm weakness, left-sided facial droop, L leg drift and inability to get out of bed. Patient was last seen normal 5 days ago on afternoon. Does not recall what has happened. Since then, patient has not shown up to work. Patient's field manager became concerned found patient in his hotel room with these neurological symptoms. Patient denies any family history of strokes or prior history of stroke or hypercoagulability. Onset: unkonwn Duration:Ongoing Location:home Severity: severe Associated symptoms: Deny chest pain, dyspnea, nausea, rash, palpitations or vomiting. The patient presented to the hospital 6 weeks ago due to a stroke. He reports he has never been psychiatrically hospitalized before and has never received outpatient treatment. He reports he had quit cigarettes prior to this incident, denies alcohol, denies marijuana currently but reports he tried it when he was in his teens but never after, and denies any other illicit drug use. He has never had drug and alcohol treatment and has never received drug and alcohol related charges. He had been up in the area due to work, and when his work hadn?t heard from him in a few days, they went to check on him and found him after he had blood clots and a possible stroke. He reports he doesn?t remember what was going and just woke up to the people coming in and taking him to the hospital. He reports he didn?t know what was going on until he presented to the hospital. He endorses standing up and falling down as he doesn?t like to wait for people and is frustrated. He reports he knows he is going to get better but is frustrated with being in the hospital for now. He endorses being excited in going to a facility that can help him further and reports that is what he is waiting on. He denies any history of depression. Psychiatric History: As above. Substance Abuse History: As above Family History: He denies any mental health or addiction issues on either side of the family. Developmental History: He denies any issues with his or , learned to walk and talk and met his developmental milestones on time, and denies any need for speech therapy, learning support, emotional support or special education classes. Psychosocial History: He reports his parents were together when he was born and has a brother and sister who are products of the same union. He denies any challenges in his childhood and denies any emotional, physical or sexual abuse. He denies any other traumatic events aside from his current situation. He denies nightmares, flashbacks, etc. The highest grade he achieved was 12th grade and got his diploma. He endorses being heterosexual with his longest relationship being 2 years. He has never been , does not have any children, has never been in the and denies any shinto belief system. He currently works in [employer]. He was living in the hotel while he was working. Legal History: He has been to [facility] 2 to 3 times, the longest of which was 9 months. Medical History: He denies any medical issues besides the recent stroke. Meds Home Medications and Allergies Home Medications Medication Instructions Recorded Confirmed Last Taken Type No Known Home Medications 10/24/21 10/24/21 Unknown History Allergies Allergy/AdvReac Type Severity Reaction Status Date / Time No Known Allergies Allergy Unverified 10/24/21 12:00 Current Medications Current Medications Generic Name Dose Route Start Last Admin Trade Name Hillary PRN Reason Stop Dose Admin Acetaminophen 650 mg 10/24/21 23:01 11/07/21 17:49 Acetaminophen 325 Mg Tablet PO 650 mg Q6H PRN Administration Mild/Mod Pain Or Temp >/= 101 Apixaban 5 mg 11/02/21 07:00 11/15/21 08:32 Apixaban 5 Mg Tablet PO 5 mg BID@0900,2100 LUISANA Administration Buspirone HCl 10 mg 10/29/21 18:00 11/15/21 08:32 Buspirone 10 Mg Tablet PO 10 mg BID LUISANA Administration Sodium Chloride 1,000 mls @ 75 mls/hr 11/05/21 12:30 11/12/21 09:39 Sodium Chloride 0.9% IV Infused .[id number] LUISANA Infusion Sodium Chloride 1,000 mls @ 100 mls/hr 11/13/21 12:00 11/13/21 20:45 Sodium Chloride 0.9% IV Not Given .Q10H LUISANA Methylphenidate HCl 5 mg 11/03/21 18:00 11/06/21 18:08 Methylphenidate 10 Mg Tablet PO 5 mg BID LUISANA Administration Nicotine 1 patch 11/08/21 12:46 11/10/21 20:07 Nicotine 7 Mg Patch TRANSDERMA 1 patch DAILY PRN Administration NICOTINE CRAVINGS Olanzapine 2.5 mg 11/05/21 21:00 11/14/21 20:19 Olanzapine 5 Mg Tablet PO 2.5 mg BEDTIME LUISANA Administration PFSH NPU PFSH: Medical History Asperger's disorder Social History Smoking and tobacco status: current every day smoker Alcohol intake: never Substance/Drug Use: never Mental Status Exam MSE Comments: This is a slender male in hospital gown with significant facial hair and locs with adequate grooming and limited eye contact. No abnormal movements except for psychomotor retardation. Cooperative with exam in no acute distress. Speech was slightly decreased rate and volume. Mood described as pretty good, affect is subdued. Thought process, organized. Thought content: patient denies any suicidal or homicial ideation, no delusions reported or noted, and denies any auditory or visual hallucinations. Attention and concentration are intact and memory appeared reliable though none were formally tested. He is alert and oriented three times. Insight and judgment are fair. Impulse control is fair. Vitals/I&O/Wt Last Vital Signs Temp 98.7 F 11/15/21 12:00 Pulse 116 H 11/15/21 12:00 Resp 18 11/15/21 12:00 BP 97/63 11/15/21 12:00 Pulse Ox 98 11/15/21 12:00 11/14/21 11/15/21 11/15/21 22:59 06:59 14:59 Intake Total 240 / 480 120 / 120 Balance 240 / 480 120 / 120 Data NPU : 11/08/21 04:51 11/08/21 04:51 A&P Assessment and plan (1) Fever: Status: Acute (2) Depression: Status: Acute (3) Cerebral vascular disease: Status: Acute (4) Acute right arterial ischemic stroke, middle cerebral artery (MCA): Status: Acute (5) DVT (deep venous thrombosis): Status: Acute (6) Stroke: Status: Acute (7) Adjustment disorder with mixed disturbance of emotions and conduct: Status: Acute Plan This is an male with adjustment disorder with mixed disturbance of emotion and conduct and rule out depression secondary to general medical condition who presents reporting he was unsure as to why he was brought into the hospital but excited to move to a facility that will help him recover. 1. Recommend antidepressant but continue current medications. He will consider. 2. Agree with placement in a rehab facility for his medical concerns and rehabilitation of him post stroke. Attestations NPU Medical Necessity Statement*: N/A. Please see primary team note for medical necessity. Coding Level of Care Code Acute Activity Director for Latanya Neri Diagnoses Fever R50.9 Depression F32.A Cerebral vascular disease I67.9 Acute right arterial ischemic stroke, middle cerebral artery (MCA) I63.511 DVT (deep venous thrombosis) I82.409 Stroke I63.9 Adjustment disorder with mixed disturbance of emotions and conduct F43.25
--- NOTE | 2021-11-15 14:13 | PC.NURSE ---
This nurse heard patient's bed alarm going off and entered the room to see patient had appeared to move himself from bed to chair. Pt was educated at that time on calling before getting up. BARREL COATER was present in room and reported to me that she had turned around to move trash can next to him and pt's chair alarm was going off and he was laying in the floor. Pt was then assisted back into bed. Dr. Fontana notified and no additionals orders received at this time. Pt is now back in bed with bed alarm on.
--- NOTE | 2021-11-15 16:57 | PC.OT ---
OTS ATTEMPTED SKILLED OT TREATMENT THIS AFTERNOON. PATIENT INITIALLY AGREEABLE TO PARTICIPATE IN ACTIVITY OFFERED; WAS GIVEN 3 MINUTES TO SIT EOB; PATIENT DID NOT ATTEMPT. PATIENT STATED THAT HE WAS FRUSTRATED THAT HE HAD TO PARTICIPATE IN 3 HOURS OF THERAPY A DAY IF TRANSFERRED TO ANOTHER FACILITY. PATIENT ENCOURAGED TO PARTICIPATE IN THERAPY SO THAT HE COULD RECOVER FROM HIS STROKE AND BE MORE INDEPENDENT. PATIENT STATED THAT HE DID NOT WANT TO DO THERAPY AND DID NOT WANT TO SEE THERAPIST AGAIN. OT TREATMENT TO BE ATTEMPTED AGAIN TOMORROW.
--- NOTE | 2021-11-15 18:26 | PC.NURSE ---
Patient attempted to get out of bed without notifying staff and bed alarm was going off. Pt was helped back in bed and alarm reset. Educated installation coordinator don't fall.
[2021-11-15] MEDS: OLANZapine 5 mg TABLET 2.5 MG PO (21:44)
[2021-11-16 03:50] VITALS: BP 108/66; PULSE 106; RESP 16; TEMP 37.7; O2SAT 96
[2021-11-16 07:23] VITALS: BP 113/75; PULSE 99; RESP 12; TEMP 37.1; O2SAT 95
[2021-11-16] MEDS: BuSPIRONE 10 mg Tablet PO ×2 (08:26→17:30)
[2021-11-16] MEDS: apixaban 5 mg Tablet PO ×2 (08:27→20:25)
--- NOTE | 2021-11-16 10:11 | PM.PN ---
Subjective Subjective: Appreciate neuropsych consultation Patient this morning is not making eye contact, is only giving yes and no answers Not motivated to participate for the interview today Vitals/I&O/Wt Last Vital Signs Temp 98.7 F 11/16/21 07:23 Pulse 99 11/16/21 07:23 Resp 12 11/16/21 07:23 BP 113/75 11/16/21 07:23 Pulse Ox 95 11/16/21 07:23 11/15/21 11/16/21 11/16/21 22:59 06:59 14:59 Intake Total 120 / 480 480 / 480 Balance 120 / 480 480 / 480 Physical Exam Narrative: No new focal deficit Currently on room air Hemodynamically stable Signs of dehydration Abdomen soft Skin tattoos Saturating well on room air S1, S2 Data : 11/08/21 04:51 11/08/21 04:51 A&P Assessment and plan (1) Adjustment disorder with mixed disturbance of emotions and conduct: Status: Acute (2) Fever: Status: Acute (3) Depression: Status: Acute (4) Cerebral vascular disease: Status: Acute (5) Acute right arterial ischemic stroke, middle cerebral artery (MCA): Status: Acute (6) DVT (deep venous thrombosis): Status: Acute (7) Stroke: Status: Acute Plan He does not carry diagnosis of Asperger syndrome Depression Needs rehab Continue Eliquis for DVT and stroke Protein S deficiency No official report of moyamoya disease DERRICK negative Currently doing well on room air Anorexia related to depression For depression continue BuSpar and Zyprexa Appreciate neuropsych evaluation Attestations Medical Necessity Statement*: Awaiting placement Time Spent in Patient Care: 15 Coding Level of Care Code Acute Chemical Unit Operator for Latanya Fwlorrie Diagnoses Adjustment disorder with mixed disturbance of emotions and conduct F43.25 Fever R50.9 Depression F32.A Cerebral vascular disease I67.9 Acute right arterial ischemic stroke, middle cerebral artery (MCA) I63.511 DVT (deep venous thrombosis) I82.409 Stroke I63.9
[2021-11-16 11:26] VITALS: BP 111/71; PULSE 99; RESP 13; O2SAT 100
[2021-11-16 16:00] VITALS: BP 108/68; PULSE 99; RESP 11; TEMP 36.6
[2021-11-16 19:37] VITALS: BP 95/60; PULSE 113; RESP 16; TEMP 37.1; O2SAT 95
[2021-11-16] MEDS: OLANZapine 5 mg TABLET 2.5 MG PO (20:25)
[2021-11-17 00:40] VITALS: BP 93/58; PULSE 103; RESP 16; TEMP 36.8
[2021-11-17 04:03] VITALS: BP 104/72; PULSE 97; RESP 18; TEMP 36.7
[2021-11-17 07:56] VITALS: BP 116/63; PULSE 94
[2021-11-17] MEDS: BuSPIRONE 10 mg Tablet PO ×2 (08:48→18:15)
[2021-11-17] MEDS: apixaban 5 mg Tablet PO ×2 (08:48→21:15)
--- NOTE | 2021-11-17 10:54 | PM.PN ---
Subjective Subjective: No events overnight manager credit collections updated Vitals/I&O/Wt Last Vital Signs Temp 98.1 F 11/17/21 04:03 Pulse 94 11/17/21 07:56 Resp 18 11/17/21 04:03 BP 116/63 11/17/21 07:56 Pulse Ox 95 11/16/21 19:37 11/16/21 11/17/21 11/17/21 22:59 06:59 14:59 Intake Total 120 / 1074 237 / 237 Balance 120 / 1074 237 / 237 Physical Exam Narrative: Saturating well on room air S1, S2 Abdomen soft Skin tattoos Patient was able to participate for interview to some extent Still showing signs of depression fatigue and lethargy No new focal deficits Data : 11/08/21 04:51 11/08/21 04:51 A&P Assessment and plan (1) Adjustment disorder with mixed disturbance of emotions and conduct: Status: Acute (2) Fever: Status: Acute (3) Depression: Status: Acute (4) Cerebral vascular disease: Status: Acute (5) Acute right arterial ischemic stroke, middle cerebral artery (MCA): Status: Acute (6) DVT (deep venous thrombosis): Status: Acute (7) Stroke: Status: Acute Plan Patient is awaiting placement Continue Eliquis No new events Appreciate psych recommendations Continue BuSpar and Zyprexa Attestations Medical Necessity Statement*: placement pending Time Spent in Patient Care: 30 Coding Level of Care Code Acute Area Intelligence Technician for Vargasg Fwd Diagnoses Adjustment disorder with mixed disturbance of emotions and conduct F43.25 Fever R50.9 Depression F32.A Cerebral vascular disease I67.9 Acute right arterial ischemic stroke, middle cerebral artery (MCA) I63.511 DVT (deep venous thrombosis) I82.409 Stroke I63.9
[2021-11-17 11:37] VITALS: BP 104/72; PULSE 102; RESP 12; TEMP 36.6; O2SAT 96
--- NOTE | 2021-11-17 14:36 | PC.NURSE ---
pt up walking in the [place] at this time with DENISE Lopez
[2021-11-17 19:24] VITALS: BP 111/67; PULSE 75; RESP 18; TEMP 37.3; O2SAT 94
[2021-11-17] MEDS: OLANZapine 5 mg TABLET 2.5 MG PO (21:14)
[2021-11-17 23:33] VITALS: BP 114/77; PULSE 105; RESP 16; TEMP 37; O2SAT 99
[2021-11-18 03:48] VITALS: BP 112/66; PULSE 94; RESP 16; TEMP 36.8; O2SAT 95
[2021-11-18 08:00] VITALS: BP 110/61; PULSE 91; RESP 16; TEMP 36.8; O2SAT 96
[2021-11-18] MEDS: apixaban 5 mg Tablet PO ×2 (09:18→20:39)
[2021-11-18] MEDS: BuSPIRONE 10 mg Tablet PO (09:18)
[2021-11-18 11:25] VITALS: BP 115/64; PULSE 94; RESP 16; TEMP 36.8; O2SAT 96
--- NOTE | 2021-11-18 12:05 | PM.MISC ---
Miscellaneous Note Note: This will be his progress note for 11/18 No overnight events Patient is laying in his bed Patient enjoyed his pizza, he ate more than half of it No aspiration No fever Hemodynamically stable no new focal deficits Saturating well on room air Abdomen soft Skin tattoos Does not look dehydrated Answer my questions appropriately No active chest pain or shortness of breath Awaiting placement Continue Eliquis for DVT Protein S deficiency We are hoping to see some response from long-term acute care on Friday
[2021-11-18 15:16] VITALS: BP 112/71; PULSE 85; RESP 16; O2SAT 95
[2021-11-18 19:14] VITALS: BP 101/67; PULSE 110; RESP 18; TEMP 37.2; O2SAT 97
[2021-11-18] MEDS: OLANZapine 5 mg TABLET 2.5 MG PO (20:38)
[2021-11-18 23:28] VITALS: BP 102/70; PULSE 106; RESP 16; TEMP 36.9; O2SAT 99
[2021-11-19 03:22] VITALS: BP 115/60; PULSE 96; RESP 18; TEMP 36.9; O2SAT 99
[2021-11-19 07:29] VITALS: BP 111/72; PULSE 108; O2SAT 97
[2021-11-19] MEDS: apixaban 5 mg Tablet PO ×2 (08:29→20:52)
--- NOTE | 2021-11-19 10:13 | PM.PN ---
Subjective Subjective: Mr. Morin was motivated to work with physical therapy today He asked me to cover him with a blanket He was watching television today, his p.o. intake has improved He smoked yesterday in the room Vitals/I&O/Wt Last Vital Signs Temp 98.5 F 11/19/21 03:22 Pulse 108 H 11/19/21 07:29 Resp 18 11/19/21 03:22 BP 111/72 11/19/21 07:29 Pulse Ox 97 11/19/21 07:29 11/18/21 11/19/21 11/19/21 22:59 06:59 14:59 Intake Total 654 / 894 200 / 1094 360 / 360 Output Total 200 / 200 Balance 454 / 694 200 / 894 360 / 360 Physical Exam Narrative: Euvolemic No new focal deficit Skin tattoos Watching television No audible stridor or wheezing S1, S2 sinus tachycardia Data : 11/08/21 04:51 11/08/21 04:51 A&P Assessment and plan (1) Adjustment disorder with mixed disturbance of emotions and conduct: Status: Acute (2) Fever: Status: Acute (3) Depression: Status: Acute (4) Cerebral vascular disease: Status: Acute (5) Acute right arterial ischemic stroke, middle cerebral artery (MCA): Status: Acute (6) DVT (deep venous thrombosis): Status: Acute (7) Stroke: Status: Acute Plan Patient was motivated to work with physical therapist today, He has begun to cooperate with the therapist Currently doing well on room air Continue Eliquis for DVT P.o. 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
[2021-11-19 19:40] VITALS: BP 92/61; PULSE 78; RESP 18; TEMP 36.8; O2SAT 92
[2021-11-19] MEDS: OLANZapine 5 mg TABLET 2.5 MG PO (20:52)
[2021-11-20] VITALS: BP 118/75; PULSE 80; RESP 18; TEMP 35; O2SAT 93
[2021-11-20 04:00] VITALS: BP 132/78; PULSE 83; RESP 18; TEMP 36.8; O2SAT 98
--- NOTE | 2021-11-20 06:42 | P.PN_ITS ---
Subjective Subjective: No overnight events Patient has started eating better, blood pressure is improved Participated with PT yesterday as well Vitals/I&O/Wt Last Vital Signs Temp 98.3 F 11/20/21 04:00 Pulse 83 11/20/21 04:00 Resp 18 11/20/21 04:00 BP 132/78 11/20/21 04:00 Pulse Ox 98 11/20/21 04:00 11/19/21 11/19/21 11/20/21 14:59 22:59 06:59 Intake Total 720 / 720 500 / 1220 Balance 720 / 720 500 / 1220 Physical Exam Narrative: No new focal deficit Saturating well on room air Mood and energy has slightly improved Abdomen soft Multiple skin tattoos Euvolemic S1, S2 Saturating well on room air no audible stridor or wheezing No active distress Data : 11/08/21 04:51 11/08/21 04:51 A&P Assessment and plan (1) Adjustment disorder with mixed disturbance of emotions and conduct: Status: Acute (2) Fever: Status: Acute (3) Depression: Status: Acute (4) Cerebral vascular disease: Status: Acute (5) Acute right arterial ischemic stroke, middle cerebral artery (MCA): Status: Acute (6) DVT (deep venous thrombosis): Status: Acute (7) Stroke: Status: Acute Plan Patient is awaiting placement Today I have peer to peer Case discussion with the biomedical engineering supervisor for his placement No overnight events Patient has started participating better with physical therapy Mood energy has slightly improved, he has started eating better as well Continue buspirone and Zyprexa Eliquis for DVT Attestations Medical Necessity Statement*: Awaiting placement Time Spent in Patient Care: 20 Coding Level of Care Code Acute President [employer] for [employer] Fwd Diagnoses Adjustment disorder with mixed disturbance of emotions and conduct F43.25 Fever R50.9 Depression F32.A Cerebral vascular disease I67.9 Acute right arterial ischemic stroke, middle cerebral artery (MCA) I63.511 DVT (deep venous thrombosis) I82.409 Stroke I63.9
[2021-11-20 08:00] VITALS: BP 97/64; PULSE 101; RESP 12; TEMP 36.8; O2SAT 97
[2021-11-20] MEDS: apixaban 5 mg Tablet PO ×2 (08:36→21:34)
[2021-11-20 11:40] VITALS: BP 97/64; PULSE 111; RESP 18; TEMP 36.7; O2SAT 97
[2021-11-20 16:00] VITALS: BP 111/73; PULSE 98; RESP 18; TEMP 36.8; O2SAT 95
[2021-11-20] MEDS: sodium chloride 0.9% 1,000 ML 75 ML IV (18:24)
[2021-11-20 19:14] VITALS: BP 124/84; PULSE 107; RESP 18; TEMP 36.6; O2SAT 96
[2021-11-20] MEDS: OLANZapine 5 mg TABLET 2.5 MG PO (21:32)
[2021-11-21] VITALS: BP 102/61; PULSE 100; RESP 18; O2SAT 94
[2021-11-21 04:00] VITALS: BP 111/73; PULSE 101; RESP 18; TEMP 37.6; O2SAT 96
--- NOTE | 2021-11-21 06:21 | P.PN_ITS ---
Subjective Subjective: Patient sustained a fall yesterday however he did not hit his head No new focal deficit Peer to peer review done with emergency medical technician basic of long-term acute care Patient has persistent sinus tachycardia I will go ahead and start him on maintenance fluid normal saline 75 mill per hour, Vitals/I&O/Wt Last Vital Signs Temp 99.6 F 11/21/21 04:00 Pulse 101 H 11/21/21 04:00 Resp 18 11/21/21 04:00 BP 111/73 11/21/21 04:00 Pulse Ox 96 11/21/21 04:00 11/20/21 11/20/21 11/21/21 14:59 22:59 06:59 Intake Total 300 / 300 0 / 300 Balance 300 / 300 0 / 300 Physical Exam Narrative: No new focal deficit Skin tattoos Signs of dehydration Saturating well on room air Abdomen soft No audible stridor or wheezing Data : 11/08/21 04:51 11/08/21 04:51 A&P Assessment and plan (1) Adjustment disorder with mixed disturbance of emotions and conduct: Status: Acute (2) Fever: Status: Acute (3) Depression: Status: Acute (4) Cerebral vascular disease: Status: Acute (5) Acute right arterial ischemic stroke, middle cerebral artery (MCA): Status: Acute (6) DVT (deep venous thrombosis): Status: Acute (7) Stroke: Status: Acute Plan Awaiting placement Continue normal saline at 75 mill per hour patient has persistent sinus tachycardia He gets dehydrated because of poor appetite Continue Eliquis for DVT He does not need any long-term antibiotics Continue to work with PT, continue BuSpar and Zyprexa Attestations Medical Necessity Statement*: Awaiting placement Time Spent in Patient Care: 30 Coding Level of Care Code Acute Sales Performance Manager for g Fwd Diagnoses Adjustment disorder with mixed disturbance of emotions and conduct F43.25 Fever R50.9 Depression F32.A Cerebral vascular disease I67.9 Acute right arterial ischemic stroke, middle cerebral artery (MCA) I63.511 DVT (deep venous thrombosis) I82.409 Stroke I63.9
[2021-11-21] MEDS: sodium chloride 0.9% 1,000 ML 75 ML IV (06:33)
[2021-11-21 07:40] VITALS: BP 103/66; PULSE 79; RESP 12; TEMP 37.5; O2SAT 96
[2021-11-21] MEDS: apixaban 5 mg Tablet PO ×2 (08:44→20:51)
[2021-11-21 11:35] VITALS: BP 103/68; PULSE 102; RESP 12; TEMP 37.3; O2SAT 95
[2021-11-21] MEDS: escitalopram 10 mg Tablet 20 MG PO (13:21)
[2021-11-21 15:49] VITALS: BP 108/63; PULSE 110; RESP 18; TEMP 37.4; O2SAT 97
[2021-11-21 20:00] VITALS: BP 116/86; PULSE 102; RESP 18; TEMP 37.2; O2SAT 94
[2021-11-21] MEDS: OLANZapine 5 mg TABLET 2.5 MG PO (20:51)
[2021-11-22] VITALS: BP 126/89; PULSE 100; RESP 18; TEMP 37.7; O2SAT 95
[2021-11-22] MEDS: sodium chloride 0.9% 1,000 ML 75 ML IV (00:05)
--- NOTE | 2021-11-22 00:58 | PC.NURSE ---
I reported high temp 99.9 to nurse
--- NOTE | 2021-11-22 03:11 | PC.NURSE ---
patient pulled IV out, stated It irritates me , refused to get another IV started. nurse explained IV fluids are needed to maintain hydration, patient continue to refuse at this time.
[2021-11-22 04:00] VITALS: BP 122/85; PULSE 97; RESP 18; TEMP 37.7; O2SAT 93
[2021-11-22] MEDS: escitalopram 10 mg Tablet 20 MG PO (10:01)
--- NOTE | 2021-11-22 11:45 | PM.PN ---
Subjective Subjective: Patient worked with PT in last 48 hours he has been participating very well He refuses IV line yesterday, blood pressure is better, tachycardia does improve with fluid hydration, I would like to keep him on maintenance rate of IV fluids with 75 mill per hour Vitals/I&O/Wt Last Vital Signs Temp 99.9 F H 11/22/21 04:00 Pulse 97 11/22/21 04:00 Resp 18 11/22/21 04:00 BP 122/85 11/22/21 04:00 Pulse Ox 93 11/22/21 04:00 11/21/21 11/22/21 11/22/21 22:59 06:59 14:59 Intake Total 1240 / 1720 360 / 360 Balance 1240 / 1720 360 / 360 Physical Exam Narrative: No new neurological deficit, saturating well on room air Blood pressure is better Sinus tachycardia improved with IV fluids Skin tattoos Awake and alert No new focal deficit Data : 11/08/21 04:51 11/08/21 04:51 A&P Assessment and plan (1) Adjustment disorder with mixed disturbance of emotions and conduct: Status: Acute (2) Fever: Status: Acute (3) Depression: Status: Acute (4) Cerebral vascular disease: Status: Acute (5) Acute right arterial ischemic stroke, middle cerebral artery (MCA): Status: Acute (6) DVT (deep venous thrombosis): Status: Acute (7) Stroke: Status: Acute Plan Patient has been participating more with physical therapy This is a very positive sign that he has started eating better working with physical therapy no I have started him on escitalopram discontinue BuSpar because of his low p.o. intake in the past Continue Zyprexa Continue Eliquis for DVT For sinus tachycardia I would like to keep him on continuous IV fluids 75 mill per hour for next 48 hours Attestations Medical Necessity Statement*: Continue medical management Time Spent in Patient Care: 30 Coding Level of Care Code Acute Marketing Database Coordinator for Latanya Neri Diagnoses Adjustment disorder with mixed disturbance of emotions and conduct F43.25 Fever R50.9 Depression F32.A Cerebral vascular disease I67.9 Acute right arterial ischemic stroke, middle cerebral artery (MCA) I63.511 DVT (deep venous thrombosis) I82.409 Stroke I63.9
[2021-11-22 15:15] VITALS: BP 106/67; PULSE 100; RESP 18; O2SAT 96
--- NOTE | 2021-11-22 15:40 | P.NPUPN_ITS ---
Subjective NPU Subjective: Patient presented today reporting that he is doing okay. He denied that there were any problems and reports that he is participating in the activities that the treatment team is requesting. He denied having any concerns with his medication but we discussed the possibility of considering an a lternative medication for him. At this time he was not willing to change medications we discussed's coming back by tomorrow and having a more lengthy discussion about possible medication changes. Mental Status Exam MSE Comments: This is a slender male in hospital gown with significant facial hair and locs with adequate grooming and limited eye contact. No abnormal movements except for psychomotor retardation.? Cooperative with exam in no acute distress. Speech was decreased rate and volume. Mood described as okay, affect is subdued. Thought process, organized. Thought content: patient denies any suicidal or homicial ideation, no delusions reported or noted, and denies any auditory or visual hallucinations. Attention and concentration are intact and memory appeared reliable though none were formally tested. He is alert and oriented three times. Insight and judgment are fair. Impulse control is fair. Vitals/I&O/Wt Last Vital Signs Temp 99.9 F 11/22/21 04:00 Pulse 100 11/22/21 15:15 Resp 18 11/22/21 15:15 BP 106/67 11/22/21 15:15 Pulse Ox 96 11/22/21 15:15 11/22/21 14:59 Intake Total 1480 / 1480 Balance 1480 / 1480 Data NPU : 11/08/21 04:51 11/08/21 04:51 A&P Assessment and plan (1) Adjustment disorder with mixed disturbance of emotions and conduct: Status: Acute (2) Depression: Status: Acute (3) Cerebral vascular disease: Status: Acute (4) Acute right arterial ischemic stroke, middle cerebral artery (MCA): Status: Acute (5) DVT (deep venous thrombosis): Status: Acute (6) Stroke: Status: Acute Plan This is an male with adjustment disorder with mixed disturbance of emotion and conduct and rule out depression secondary to general medical condition who presents reporting he was unsure as to why he was brought into the hospital but excited to move to a facility that will help him recover. 1.? Recommend possibly starting Wellbutrin XL but continue current medications.? He will consider. 2.? Agree with placement in a rehab facility for his medical concerns and rehabilitation of him post stroke. 3. We will follow-up again tomorrow. Attestations NPU Medical Necessity Statement*: N/A.? Please see primary team note for medical necessity. Coding Level of Care Code Acute Credit Analysis Manager for [facility] Fwd Diagnoses Adjustment disorder with mixed disturbance of emotions and conduct F43.25 Depression F32.A Cerebral vascular disease I67.9 Acute right arterial ischemic stroke, middle cerebral artery (MCA) I63.511 DVT (deep venous thrombosis) I82.409 Stroke I63.9
--- NOTE | 2021-11-22 16:14 | PC.OT ---
OT TREATMENT ATTEMPTED TWICE TODAY; PATIENT IS SLEEPING SOUNDLY NOTED BY LOUD BREATHING AND NOT AWAKENING TO LOUD VOICES IN HIS ROOM. TREATMENT TO BE ATTEMPTED TOMORROW.
--- NOTE | 2021-11-22 17:46 | PC.NURSE ---
After several attempts to get IV access, along with another nurse, pt still refusing to have IV. Education provided, pt still refusing.
[2021-11-22 19:50] VITALS: BP 108/71; PULSE 103; RESP 18; TEMP 37.4; O2SAT 94
--- NOTE | 2021-11-22 21:15 | PC.NURSE ---
Patient not currently cooperating with staff. Refuses to roll over to be assessed. Does not want me to test him left hand or leg strength stating it does work right . Does not want me to start an IV, and when attempting to wake him to give is medication he just started snoring louder when spoke too.
[2021-11-23 00:46] VITALS: BP 116/82; PULSE 98; RESP 16; TEMP 36.7
[2021-11-23 04:39] VITALS: BP 107/63; PULSE 104; RESP 16; TEMP 35.7; O2SAT 96
[2021-11-23 07:12] VITALS: BP 109/72; PULSE 97; RESP 18; TEMP 36.6; O2SAT 96
[2021-11-23] MEDS: escitalopram 10 mg Tablet 20 MG PO (09:36)
[2021-11-23 10:50] VITALS: BP 96/66; PULSE 101; RESP 16; TEMP 37.5; O2SAT 96
--- NOTE | 2021-11-23 11:09 | P.PN_ITS ---
Subjective Subjective: This morning patient agreed for IV access however related nurse told me that he was not being compliant This morning he also did not eat very much Vitals/I&O/Wt Last Vital Signs Temp 99.5 F 11/23/21 10:50 Pulse 101 H 11/23/21 10:50 Resp 16 11/23/21 10:50 BP 96/66 11/23/21 10:50 Pulse Ox 96 11/23/21 10:50 11/22/21 11/23/21 11/23/21 22:59 06:59 14:59 Intake Total 360 / 1840 480 / 2320 120 / 120 Balance 360 / 1840 480 / 2320 120 / 120 Physical Exam Narrative: Nonfocal no new focal deficit Patient is laying flat in his bed Did not make eye contact. Low blood pressure Sinus tachycardia Signs of dehydration No audible stridor or wheezing Data : 11/08/21 04:51 11/08/21 04:51 A&P Assessment and plan (1) Adjustment disorder with mixed disturbance of emotions and conduct: Status: Acute (2) Fever: Status: Acute (3) Depression: Status: Acute (4) Cerebral vascular disease: Status: Acute (5) Acute right arterial ischemic stroke, middle cerebral artery (MCA): Status: Acute (6) DVT (deep venous thrombosis): Status: Acute (7) Stroke: Status: Acute Plan Patient has been noncompliant He is not allowing us to keep IV access and start normal saline Poor p.o. intake Sinus tachycardia signs of dehydration I have started him on an SSRI, BuSpar has not been given in last few days Continue Zyprexa Regular diet Attestations Medical Necessity Statement*: Awaiting placement Time Spent in Patient Care: 10 Coding Level of Care Code Acute Assistant Infant Toddler Teacher for g Fwd Diagnoses Adjustment disorder with mixed disturbance of emotions and conduct F43.25 Fever R50.9 Depression F32.A Cerebral vascular disease I67.9 Acute right arterial ischemic stroke, middle cerebral artery (MCA) I63.511 DVT (deep venous thrombosis) I82.409 Stroke I63.9
--- NOTE | 2021-11-23 13:22 | P.NPUPN_ITS ---
Subjective NPU Subjective: Patient presents today a little more talkative about the events surrounding impending here. He denied recalling any prodromal behaviors before the stroke. He nor his family were aware of any possible hypercoagulable state. He denies any current feelings of depression or any other psychiatric concerns but we discussed concerns regarding post stroke syndromes that might be giving him the appearance that we see. Mental Status Exam MSE Comments: This is a slender male in hospital gown with significant facial hair and locs with adequate grooming and limited eye contact. No abnormal movements except for psychomotor retardation.? Cooperative with exam in no acute distress. Speech was decreased rate and volume. Mood described as okay, affect is subdued/low energy Thought process, organized. Thought content: patient denies any suicidal or homicidal ideation, no delusions reported or noted, and denies any auditory or visual hallucinations. Attention and concentration are intact and memory appeared reliable though none were formally tested. He is alert and oriented three times. Insight and judgment are fair. Impulse control is fair. Vitals/I&O/Wt Last Vital Signs Temp 99.5 F 11/23/21 10:50 Pulse 101 H 11/23/21 10:50 Resp 16 11/23/21 10:50 BP 96/66 11/23/21 10:50 Pulse Ox 96 11/23/21 10:50 Data NPU : 11/08/21 04:51 11/08/21 04:51 A&P Assessment and plan (1) Adjustment disorder with mixed disturbance of emotions and conduct: Status: Acute (2) Abulia: Status: Acute (3) Depression: Status: Acute (4) Cerebral vascular disease: Status: Acute (5) Acute right arterial ischemic stroke, middle cerebral artery (MCA): Status: Acute (6) DVT (deep venous thrombosis): Status: Acute (7) Stroke: Status: Acute Plan This is an male with adjustment disorder with mixed disturbance of emotion and conduct and rule out depression secondary to general medical condition who presents reporting he was unsure as to why he was brought into the hospital but excited to move to a facility that will help him recover. 1.? Recommend possibly starting Wellbutrin XL but continue current medications.? He will consider. 2.? Agree with placement in a rehab facility for his medical concerns and rehabilitation of him post stroke. 3.? Possibility of a pseudodepressive syndrome that can be seen with DLPFC distributed lesions. Sometimes described as goal neglect or abulia. Attestations NPU Medical Necessity Statement*: N/A.? Please see primary team note for medical necessity. Coding Level of Care Code Acute Surgical Instrument Technician for [facility] Fwd Diagnoses Adjustment disorder with mixed disturbance of emotions and conduct F43.25 Abulia R68.89 Depression F32.A Cerebral vascular disease I67.9 Acute right arterial ischemic stroke, middle cerebral artery (MCA) I63.511 DVT (deep venous thrombosis) I82.409 Stroke I63.9
[2021-11-23 16:50] VITALS: BP 116/78; PULSE 86; RESP 18; TEMP 37.2; O2SAT 93
[2021-11-23 19:19] VITALS: BP 114/72; PULSE 87; RESP 18; TEMP 36.6; O2SAT 94
[2021-11-23] MEDS: OLANZapine 5 mg TABLET 2.5 MG PO (20:32)
[2021-11-24] VITALS (7 sets, daily range): BP systolic 102–114; BP diastolic 68–81; PULSE 74–114; RESP 16–18; TEMP 36.8–37.7; O2SAT 93–98
[2021-11-24] MEDS: escitalopram 10 mg Tablet 20 MG PO (08:32)
--- NOTE | 2021-11-24 11:03 | P.PN_ITS ---
Subjective Subjective: Patient did not make eye contact I did talk to him in detail regarding keeping his body and mind active, I did offer him that if he wanted to read some books He has not eaten his breakfast Is refusing IV access However the only positive sign I seen him is that he has started working with PT and OT I also spoke to him regarding thinking about positive things in his life regarding recovery, thinking about getting raising his kids and looking forward to the future I encouraged him to keep his intellectual facilities active by reading books Vitals/I&O/Wt Last Vital Signs Temp 98.2 F 11/24/21 04:00 Pulse 74 11/24/21 04:00 Resp 18 11/24/21 07:05 BP 111/79 11/24/21 04:00 Pulse Ox 98 11/24/21 04:00 Physical Exam Narrative: Is laying in his bed I have not noticed new focal deficit He does not make eye contact He keeps looking at the TV or keeps his head And his right arm Does look dehydrated Saturating well on room air Able to answer my questions to some extent without any difficulty No problem with comprehension S1, S2 Abdomen is soft Data : 11/08/21 04:51 11/08/21 04:51 A&P Assessment and plan (1) Abulia: Status: Acute (2) Adjustment disorder with mixed disturbance of emotions and conduct: Status: Acute (3) Fever: Status: Acute (4) Depression: Status: Acute (5) Cerebral vascular disease: Status: Acute (6) Acute right arterial ischemic stroke, middle cerebral artery (MCA): Status: Acute (7) DVT (deep venous thrombosis): Status: Acute (8) Stroke: Status: Acute Plan Dr. Greene has diagnosed him with abulia I did try to encourage him to read books today I have notified refinery operator reforming unit as well to provide him reading material Signs of dehydration He is decreasing IV access Participating with PT and OT Continue Eliquis Continue SSRI and Zyprexa Full code Continue regular diet I did spoke with his mother yesterday to update her, she wanted me to let immigration case manager fax current PT/OT notes to [facility] Attestations Medical Necessity Statement*: Awaiting placement Time Spent in Patient Care: 20 Coding Level of Care Code Acute Lead Cargo Mover for [facility] Fwd Diagnoses Abulia R68.89 Adjustment disorder with mixed disturbance of emotions and conduct F43.25 Fever R50.9 Depression F32.A Cerebral vascular disease I67.9 Acute right arterial ischemic stroke, middle cerebral artery (MCA) I63.511 DVT (deep venous thrombosis) I82.409 Stroke I63.9
[2021-11-24] MEDS: methylphenidate 10 mg Tablet PO (12:44)
[2021-11-24] MEDS: OLANZapine 5 mg TABLET 2.5 MG PO (22:18)
[2021-11-25 03:05] VITALS: BP 108/75; PULSE 110; RESP 16; TEMP 38.3; O2SAT 96
--- NOTE | 2021-11-25 05:00 | P.PN_ITS ---
Subjective Subjective: Events noted, patient is appropriately tachycardic Patient is refusing IV access and normal saline resuscitation Will do chest x-ray Drug screen, urinalysis Vitals/I&O/Wt Last Vital Signs Temp 100.9 F H 11/25/21 03:05 Pulse 110 H 11/25/21 03:05 Resp 16 11/25/21 03:05 BP 108/75 11/25/21 03:05 Pulse Ox 96 11/25/21 03:05 11/24/21 11/24/21 11/25/21 14:59 22:59 06:59 Intake Total 240 / 240 480 / 720 Balance 240 / 240 480 / 720 Physical Exam Narrative: No new focal deficit S1, S2 sinus tachycardia Signs of dehydration Skin tattoos No abdominal pain Saturating well on room air No signs of meningitis Data : 11/08/21 04:51 11/08/21 04:51 A&P Assessment and plan (1) Abulia: Status: Acute (2) Adjustment disorder with mixed disturbance of emotions and conduct: Status: Acute (3) Fever: Status: Acute (4) Depression: Status: Acute (5) Cerebral vascular disease: Status: Acute (6) Acute right arterial ischemic stroke, middle cerebral artery (MCA): Status: Acute (7) DVT (deep venous thrombosis): Status: Acute (8) Stroke: Status: Acute Plan Abulia Patient is on Zyprexa I have added Ritalin as well Currently on SSRI Continue Eliquis for DVT Dehydration, febrile event No source of infection Hold off of antibiotics until source of infection is cleared last time after removal of IV access his fever subsided Normal saline at 75 mill per hour Patient has participated with PT and OT Currently see their notes for further details Full code Regular diet Attestations Medical Necessity Statement*: Awaiting placement Time Spent in Patient Care: 30 Coding Level of Care Code Acute Ironworker Machine Operator for [facility] Fwd Diagnoses Abulia R68.89 Adjustment disorder with mixed disturbance of emotions and conduct F43.25 Fever R50.9 Depression F32.A Cerebral vascular disease I67.9 Acute right arterial ischemic stroke, middle cerebral artery (MCA) I63.511 DVT (deep venous thrombosis) I82.409 Stroke I63.9
--- NOTE | 2021-11-25 05:06 | XRR_ITS ---
PROCEDURE INFORMATION: Exam: XR Chest Exam date and time: 11/25/2021 5:20 AM Age: 26 years old Clinical indication: Patient HX: Onset of fever. TECHNIQUE: Imaging protocol: Radiologic exam of the chest. Views: 1 view. COMPARISON: CR XR chest 1V portable [id number] 11/07/2021 7:43 AM FINDINGS: Lungs: There is no evidence of focal pulmonary consolidation. Pleural spaces: No pleural effusion or pneumothorax. Heart/Mediastinum: Normal in size. Bones/joints: No acute fracture is identified. XR/XR chest 1V portable [id number] IMPRESSION: No acute findings.
[2021-11-25 07:14] LABS: Basophils % 0.2 %; Eosinophils % 0.4 %; Hematocrit 37.9 % (42.0-52.0); Hemoglobin 13.9 g/dL (11.7-16.6); Lymphocytes # 1.6 10^3/uL (0.8-4.8); Lymphocytes % 32.6 %; Mean Corpuscular HGB Conc 36.7 g/dL (30.0-36.0); Mean Corpuscular Hemoglobin 31.7 pg (28.0-34.0); Mean Corpuscular Volume 86.5 fl (80-94); Mean Platelet Volume 9.9 fL (7.4-10.4); Monocytes # 0.5 10^3/uL (0.2-0.9); Monocytes % 10.7 %; Neutrophils # 2.69 10^3/uL (1.8-7.7); Neutrophils % 55.5 %; Nucleated Red Blood Cells % 0 %; Platelet Count 252 10^3/cmm (130-400); Red Blood Count 4.38 10^6/uL (4.1-5.3); Red Cell Distribution Width 11.9 % (12.1-15.1); White Blood Count 4.9 10^3/uL (4.0-10.0)
--- NOTE | 2021-11-25 07:23 | W.PM.NPUPNS ---
Subjective NPU Subjective: Patient relaxing comfortably. No significant changes from previous interactions. Still very low energy and appears to be very low motivation. We discussed risks, benefits and alternatives of Wellbutrin XL and he understood and agreed proceed as is documented in this note. Mental Status Exam MSE Comments: This is a slender male in hospital gown with significant facial hair and locs with adequate grooming and limited eye contact. No abnormal movements except for psychomotor retardation.? Cooperative with exam in no acute distress. Speech was decreased rate and volume. Mood described as okay, affect is subdued/low energy. Thought process, organized. Thought content: patient denies any suicidal or homicidal ideation, no delusions reported or noted, and denies any auditory or visual hallucinations. Attention and concentration are intact and memory appeared reliable though none were formally tested. He is alert and oriented three times. Insight and judgment are fair. Impulse control is fair. Vitals/I&O/Wt Last Vital Signs Temp 100.9 F H 11/25/21 03:05 Pulse 110 H 11/25/21 03:05 Resp 16 11/25/21 03:05 BP 108/75 11/25/21 03:05 Pulse Ox 96 11/25/21 03:05 11/24/21 11/25/21 11/25/21 22:59 06:59 14:59 Intake Total 480 / 720 Balance 480 / 720 Data NPU : 11/25/21 06:36 11/08/21 04:51 A&P Assessment and plan (1) Abulia: Status: Acute (2) Adjustment disorder with mixed disturbance of emotions and conduct: Status: Acute (3) Depression: Status: Acute (4) Acute right arterial ischemic stroke, middle cerebral artery (MCA): Status: Acute (5) Cerebral vascular disease: Status: Acute (6) DVT (deep venous thrombosis): Status: Acute (7) Stroke: Status: Acute Plan This is an male with adjustment disorder with mixed disturbance of emotion and conduct and rule out depression secondary to general medical condition who presents reporting he was unsure as to why he was brought into the hospital but excited to move to a facility that will help him recover. 1.? Continue current medications. Start Wellbutrin XL for Abulia. Agree with Ritalin but effects often taper off. 2.? Agree with placement in a rehab facility for his medical concerns and rehabilitation of him post stroke. 3.? 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 Sometimes described as goal neglect or abulia. Attestations NPU Medical Necessity Statement*: N/A.? Please see primary team note for medical necessity. Coding Level of Care Code Acute Director Banking for Latanya Fwd Diagnoses Abulia R68.89 Adjustment disorder with mixed disturbance of emotions and conduct F43.25 Depression F32.A Acute right arterial ischemic stroke, middle cerebral artery (MCA) I63.511 Cerebral vascular disease I67.9 DVT (deep venous thrombosis) I82.409 Stroke I63.9
[2021-11-25 07:45] LABS: Alanine Aminotransferase 23 U/L (0-41); Albumin Level 4.1 g/dL (3.5-5.2); Alkaline Phosphatase 65 IU/L (40-130); Anion Gap 12.3 (5-19); Aspartate Amino Transferase 19 U/L (0-40); Blood Urea Nitrogen 13 mg/dL (6-20); Calcium 9.2 mg/dL (8.5-10.5); Carbon Dioxide 28 mmol/L (22-29); Chloride 96 mmol/L (98-107); Globulin 3.8 g/dL (1.3-4.6); Glomerular Filtration Rate 141.4 mL/min (90-130); Glucose 96 mg/dL (65-115); Osmolality Calculated 274 mOsm/kg (285-295); Potassium 4.3 mmol/L (3.5-5.1); Sodium 132 mmol/L (136-145); Total Bilirubin 0.4 mg/dL (0.15-1.2); Total Protein 7.9 g/dL (6.6-8.7)
[2021-11-25 07:46] VITALS: BP 100/66; PULSE 108; RESP 16; TEMP 36.8; O2SAT 94
[2021-11-25] MEDS: buPROPion XL (24 HR) 150 mg Tablet PO (10:24)
[2021-11-25] MEDS: escitalopram 10 mg Tablet 20 MG PO (10:24)
[2021-11-25 12:00] VITALS: BP 97/64; PULSE 113; RESP 12; TEMP 36.8; O2SAT 93
[2021-11-25 16:00] VITALS: BP 101/65; PULSE 119; RESP 17; TEMP 36.4; O2SAT 93
--- NOTE | 2021-11-25 16:05 | CTR_ITS ---
PROCEDURE INFORMATION: Exam: CT Head Without Contrast Exam date and time: 11/25/2021 4:25 PM Age: 26 years old Clinical indication: Injury or trauma; Fall; Blunt trauma (contusions or hematomas) TECHNIQUE: Imaging protocol: Computed tomography of the head without contrast. Radiation optimization: All CT scans at this facility use at least one of these dose optimization techniques: automated exposure control; mA and/or kV adjustment per patient size (includes targeted exams where dose is matched to clinical indication); or iterative reconstruction. COMPARISON: CT head wo con* [id number] 11/11/2021 11:10 AM RADIATION DOSE METRICS: Total DLP (mGy-cm): 811.16 FINDINGS: Brain: There is a late subacute right basal ganglia and frontal , evolving from edema to encephalomalacia when compared to the prior scan. There is slight cortical hyperdensity, likely developing laminar necrosis. No new infarct. No hemorrhage or extra-axial collection. There also small old left basal ganglia lacunar infarcts. Cerebral ventricles: No ventriculomegaly. Paranasal sinuses: Visualized sinuses are unremarkable. No fluid levels. Mastoid air cells: Visualized mastoid air cells are well aerated. Bones/joints: Unremarkable. No acute fracture. Soft tissues: Unremarkable. CT/CT head wo con* [id number] IMPRESSION: 1. Late subacute to chronic lacunar infarcts with developing encephalomalacia when compared to prior scan. Small old left basal ganglia lacunar infarcts. 2. No acute intracranial injury or lesion
[2021-11-25 19:54] VITALS: BP 111/67; PULSE 86; RESP 16; TEMP 36.8; O2SAT 95
[2021-11-25] MEDS: OLANZapine 5 mg TABLET 2.5 MG PO (20:42)
[2021-11-26] VITALS (7 sets, daily range): BP systolic 99–123; BP diastolic 66–81; PULSE 76–116; RESP 15–22; TEMP 36.4–37.1; O2SAT 92–98
--- NOTE | 2021-11-26 05:04 | PM.PN ---
Subjective Subjective: Patient did very well with physical therapy, he was also walking down the [place] with the help of nursing staff however unfortunately later in the day he tried to get up on his own and fell and hit his head against the wall, CT head unremarkable Vitals/I&O/Wt Last Vital Signs Temp 98.5 F 11/26/21 03:59 Pulse 110 H 11/26/21 03:59 Resp 17 11/26/21 03:59 BP 108/73 11/26/21 03:59 Pulse Ox 98 11/26/21 03:59 11/25/21 11/25/21 11/26/21 14:59 22:59 06:59 Intake Total 360 / 360 240 / 600 Balance 360 / 360 240 / 600 Physical Exam Narrative: Signs of dehydration Sinus tachycardia Afebrile Nonfocal neuro exam No new focal deficit Abdomen soft Skin tattoos Breathing well on room air Does try to reciprocate when asked same question multiple times Data : 11/25/21 06:36 11/25/21 06:36 A&P Assessment and plan (1) Abulia: Status: Acute (2) Adjustment disorder with mixed disturbance of emotions and conduct: Status: Acute (3) Fever: Status: Acute (4) Depression: Status: Acute (5) Cerebral vascular disease: Status: Acute (6) Acute right arterial ischemic stroke, middle cerebral artery (MCA): Status: Acute (7) DVT (deep venous thrombosis): Status: Acute (8) Stroke: Status: Acute Plan Participation with PT and OT has improved Continue Eliquis for protein S deficiency, stroke and DVT Patient does benefit from normal saline fluid hydration for dehydration and sinus tachycardia His p.o. intake is not ready get however his participation with physical therapist has significantly improved Abulia Lack of motivation, appreciate neuropsych evaluation Continue Ritalin, SSRI Attestations Medical Necessity Statement*: Awaiting placement Time Spent in Patient Care: 30 Coding Level of Care Code Acute Central Office Supervisor for Latanya Neri Diagnoses Abulia R68.89 Adjustment disorder with mixed disturbance of emotions and conduct F43.25 Fever R50.9 Depression F32.A Cerebral vascular disease I67.9 Acute right arterial ischemic stroke, middle cerebral artery (MCA) I63.511 DVT (deep venous thrombosis) I82.409 Stroke I63.9
[2021-11-26] MEDS: methylphenidate 10 mg Tablet PO (08:22)
[2021-11-26] MEDS: escitalopram 10 mg Tablet 20 MG PO (08:22)
[2021-11-26] MEDS: buPROPion XL (24 HR) 150 mg Tablet PO (08:22)
[2021-11-26] MEDS: OLANZapine 5 mg TABLET 2.5 MG PO (20:14)
[2021-11-27 04:00] VITALS: BP 122/80; TEMP 36.6; O2SAT 98
--- NOTE | 2021-11-27 06:21 | PM.PN ---
Subjective Subjective: No overnight events Hemodynamically stable Yvonne spoke with his mother yesterday, he is getting approved for Medicaid today Vitals/I&O/Wt Last Vital Signs Temp 97.9 F 11/27/21 04:00 Pulse 78 11/26/21 23:24 Resp 18 11/26/21 23:24 BP 122/80 11/27/21 04:00 Pulse Ox 98 11/27/21 04:00 11/26/21 11/26/21 11/27/21 14:59 22:59 06:59 Intake Total 180 / 180 120 / 300 Balance 180 / 180 120 / 300 Physical Exam Narrative: No new focal deficit Hemodynamically stable Signs of dehydration/improved No facial expressions Abdomen soft Saturating well on room air No audible stridor or wheezing Data : 11/25/21 06:36 11/25/21 06:36 A&P Assessment and plan (1) Abulia: Status: Acute (2) Adjustment disorder with mixed disturbance of emotions and conduct: Status: Acute (3) Fever: Status: Acute (4) Depression: Status: Acute (5) Cerebral vascular disease: Status: Acute (6) Acute right arterial ischemic stroke, middle cerebral artery (MCA): Status: Acute (7) DVT (deep venous thrombosis): Status: Acute (8) Stroke: Status: Acute Plan 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 Continue Eliquis for DVT Continue antidepressants, Ritalin and Zyprexa Full code Regular diet Daily PT/OT As per his mother is getting approved for Medicaid today hopefully he will to go to a rehab in [place] Attestations Medical Necessity Statement*: Continue medical management Time Spent in Patient Care: 20 Coding Level of Care Code Acute Supervisor [employer] for g Fwd Diagnoses Abulia R68.89 Adjustment disorder with mixed disturbance of emotions and conduct F43.25 Fever R50.9 Depression F32.A Cerebral vascular disease I67.9 Acute right arterial ischemic stroke, middle cerebral artery (MCA) I63.511 DVT (deep venous thrombosis) I82.409 Stroke I63.9
--- NOTE | 2021-11-27 07:00 | PC.OT ---
LATE ENTRY FOR 11/26: OT TREATMENT ATTEMPTED. PATIENT KEPT EYES CLOSED; SHOOK HIS HEAD YES WHEN ASKED IF HE HEARD ME ASK HIM TO PARTICIPATE IN THERAPY. CONTINUED TO LIE IN BED WITH EYES CLOSED, THIS THERAPIST RUBBED THE PATIENTS LEFT ARM AND CONTINUED TO ATTEMPT TO COAX HIM TO PARTICIPATE IN THERAPY. HE STATED, YOUR HANDS ARE COLD . HE CONTINUED TO LIE IN BED WITH EYES CLOSED. THIS THERAPIST REMINDED HIM THAT IF HE DOESN'T OPEN HIS EYES AND PARTICIPATE IN THERAPY THAT THIS WOULD BE A REFUSAL TO PARTICIPATE. HE CONTINUED TO LIE IN BED WITH HIS EYES CLOSED. APROX. 20 MINUTES LATER THE PATIENT WAS SEEN AMBULATING IN THE [facility] WITH MACHINERY MOVER.
[2021-11-27 07:47] VITALS: BP 115/70; PULSE 110; RESP 16; TEMP 37.2; O2SAT 93
[2021-11-27] MEDS: buPROPion XL (24 HR) 150 mg Tablet PO (09:31)
[2021-11-27] MEDS: escitalopram 10 mg Tablet 20 MG PO (09:31)
[2021-11-27] MEDS: methylphenidate 10 mg Tablet PO (09:33)
[2021-11-27 11:23] VITALS: BP 99/66; PULSE 110; RESP 17; TEMP 36.9; O2SAT 92
[2021-11-27] MEDS: lanolin oint 7 gm 1 APPLIC TOPICAL (12:22)
--- NOTE | 2021-11-27 13:06 | PC.SLP ---
OFFICE MACHINE SERVICER entered room, patient was lying on his side. The patient began to sit up, then he went back to lay down. The patient did not open his eyes majority of the time, when he and the therapist conversed. The therapist asked the patient if he would participate multiple times, and the patient continued to stay on his side, lying down. The patient continued to keep his eyes closed and he informed the therapist that he would prefer to sleep.
[2021-11-27 16:00] VITALS: BP 103/69; PULSE 113; RESP 17; TEMP 37.6; O2SAT 96
[2021-11-27 19:38] VITALS: BP 128/78; PULSE 107; RESP 18; TEMP 37.7; O2SAT 95
--- NOTE | 2021-11-27 19:40 | PC.NURSE ---
i reported high temp 99.8 and high pulse 107 to nurse
[2021-11-27] MEDS: OLANZapine 5 mg TABLET 2.5 MG PO (20:30)
[2021-11-28] VITALS: BP 120/72; PULSE 102; RESP 18; TEMP 37.3; O2SAT 94
[2021-11-28 04:00] VITALS: BP 120/69; PULSE 86; RESP 18; TEMP 37.2; O2SAT 96
[2021-11-28 07:21] VITALS: PULSE 99; RESP 16; TEMP 36.6; O2SAT 94
--- NOTE | 2021-11-28 10:21 | P.PN_ITS ---
Subjective Subjective: This morning patient was laying flat in his bed Hemodynamically stable No overnight events He has been accepted at [facility] in [place] Will arrange transportation, case resolution specialist aware Vitals/I&O/Wt Last Vital Signs Temp 97.8 F 11/28/21 07:21 Pulse 99 11/28/21 07:21 Resp 16 11/28/21 07:21 BP 120/69 11/28/21 04:00 Pulse Ox 94 11/28/21 07:21 Physical Exam Narrative: No new focal deficit No vision changes Patient looks dehydrated Able to comprehend my questions S1, S2 Sinus tachycardia Blood pressure is stable No abdominal tenderness Data : 11/25/21 06:36 11/25/21 06:36 A&P Assessment and plan (1) Abulia: Status: Acute (2) Adjustment disorder with mixed disturbance of emotions and conduct: Status: Acute (3) Fever: Status: Acute (4) Depression: Status: Acute (5) Cerebral vascular disease: Status: Acute (6) Acute right arterial ischemic stroke, middle cerebral artery (MCA): Status: Acute (7) DVT (deep venous thrombosis): Status: Acute (8) Stroke: Status: Acute Plan Patient has been accepted at [facility] Is able to tolerate p.o. diet, I am okay sending him without IV fluids Continue antidepressant, He will need Eliquis lifelong Genetic and molecular testing will be needed in [place] He will need hematology consult along neurology Cortical necrosis is seen with ischemic stroke No active signs of seizure Full code Attestations Medical Necessity Statement*: Hopefully will be able to transfer him tomorrow Time Spent in Patient Care: 15 Coding Level of Care Code Acute Dietitian Assistant for [facility] Fwd Diagnoses Abulia R68.89 Adjustment disorder with mixed disturbance of emotions and conduct F43.25 Fever R50.9 Depression F32.A Cerebral vascular disease I67.9 Acute right arterial ischemic stroke, middle cerebral artery (MCA) I63.511 DVT (deep venous thrombosis) I82.409 Stroke I63.9
[2021-11-28] MEDS: buPROPion XL (24 HR) 150 mg Tablet PO (10:42)
[2021-11-28] MEDS: escitalopram 10 mg Tablet 20 MG PO (10:43)
[2021-11-28] MEDS: methylphenidate 10 mg Tablet PO (10:44)
[2021-11-28 11:00] VITALS: BP 122/80; PULSE 95; RESP 16; O2SAT 95
[2021-11-28 15:33] VITALS: BP 123/78; PULSE 95; RESP 16; TEMP 36.7; O2SAT 96
[2021-11-28 19:37] VITALS: BP 128/83; PULSE 95; RESP 18; TEMP 37.7; O2SAT 98
--- NOTE | 2021-11-28 19:38 | PC.NURSE ---
i reported high temp 99.8 to nurse
[2021-11-28] MEDS: OLANZapine 5 mg TABLET 2.5 MG PO (19:43)
[2021-11-29] VITALS: BP 121/75; PULSE 89; RESP 18; TEMP 37.3; O2SAT 96
[2021-11-29 03:49] VITALS: BP 126/81; PULSE 80; RESP 18; TEMP 37.2; O2SAT 96
--- NOTE | 2021-11-29 06:27 | P.DS_ITS ---
Discharge Providers Date of Admission: 10/24/21 20:22 Date of Discharge: November 29, 2021 Attending Provider at Admission: Asa Navarro DO Attending Provider at Discharge: Josy Fontana MD Diagnoses at Discharge Discharge Diagnosis (1) Abulia: Status: Acute (2) Adjustment disorder with mixed disturbance of emotions and conduct: Status: Acute (3) Fever: Status: Acute (4) Depression: Status: Acute (5) Cerebral vascular disease: Status: Acute (6) Acute right arterial ischemic stroke, middle cerebral artery (MCA): Status: Acute (7) DVT (deep venous thrombosis): Status: Acute (8) Stroke: Status: Acute Reason for Visit Reason for Visit: L SIDED WEAKNESS/ FACIAL DROOP Hospital Course Hospital Course 26-year-old -Thai male who was admitted on 10/24 for acute stroke episode he was diagnosed with right-sided MCA stroke, CTA head and neck showed occluded right M1 small right A1 segment of middle cerebral artery without cervical carotid stenosis, he was diagnosed with cerebral edema, moderate size infarct of right MCA including posterior right frontal lobe and basal ganglia. During his hospitalization he suffered from depression, adjustment disorder and abulia which is anticipated with frontal lobe stroke. He has lost motivation to take any initiated. He needs a lot of motivation to carry his daily activities including walking, eating, reading books etc. Neuropsych evaluated him and recommended continuation of Ritalin, BuSpar, Zyprexa. He has had multiple falls during this hospitalization because of his weakness. It was a challenge to have him work with our physical therapist and occupational therapist. He remained sinus tachycardic secondary to dehydration due to poor p.o. intake, he has also been diagnosed with bilateral DVTs of lower extremities, upper extremities he has been diagnosed with protein S deficiency hypercoagulable state. Family has been counseled to pursue genetic/molecular study on Mr. Morin and rest of the siblings should also get tested. Mother is aware. Another challenge was his disposition from the hospital because of social dynamics. Mother is currently working in [place] and not able to take care of him at home, he spent almost 1 month in the hospital, today he is getting discharged to long-term acute care on Eliquis, BuSpar, Ritalin, Zyprexa. He was given loading dose of Eliquis initially he has to take Eliquis lifelong. Mother is aware that he needs to see plate mill hand for molecular/genetic testing. DERRICK negative, lupus antibodies negative, factor V Leyden negative, anticardiolipin antibody negative Aggressive PT/OT on daily basis Need a lot of motivation to increase his p.o. intake He eats regular diet He does very well in the presence of his mother DVT report: ?Thrombus with? occlusion involving the right cephalic vein and ?basilic veins and the left basilic vein. ?Left GSV thrombophlebitis. ?Right common and probable profunda DVT. MRI ?Acute moderate size infarct in the RIGHT MCA territory involving the posterior RIGHT frontal lobe including the basal ganglia. No hemorrhage. No mass effect or evidence for mass on this unenhanced examination. 2.? No hydrocephalus. CT abdomen pelvis IMPRESSION: ? 1.? No pulmonary mass or nodule or adenopathy in the chest. Axillary lymph nodes are very minimally prominent. 2.? No splenomegaly. 3.? It would be difficult to exclude lymph nodes within the mesentery and retroperitoneum. There is confluent soft tissue which is probably nonopacified GI tract. There is no ascites or retroperitoneal adenopathy. 4.? No osseous lesions. 5.? Numerous collateral vessels around the RIGHT upper extremity shoulder and clavicle. No occlusions are identified. Consider ultrasound evaluation of the RIGHT upper extremity venous system. Partial thrombus may be present in the s ubclavian vein. Echo with bubble study CONCLUSIONS ?Normal LV systolic function ?Normal RV size and function ?Bubble study shows no evidence of intracardiac shunting ?Mild mitral regurgitation seen ? Physical Exam Narrative: No new focal deficit No vision changes Masked facies, no facial expressions Mild facial droop Able to comprehend my questions S1, S2 Sinus tachycardia Blood pressure is stable No abdominal tenderness ? Discharge Data Studies Completed and Pending Completed Studies During Hospitalization Category Date Time Status CT angio headneck* 85409/[id number] Stat Cat Scan 10/24/21 11:[address] chest abd pel w con* Urgent Cat Scan 10/25/21 10:[address] head wo con* [id number] Routine Cat Scan 11/03/21 12:[address] head wo con* [id number] Stat Cat Scan 10/24/21 11:[address] head wo con* [id number] Stat Cat Scan 10/27/21 11:[address] head wo con* [id number] Stat Cat Scan 11/11/21 10:[address] head wo con* [id number] Stat Cat Scan 11/25/21 16:05 Completed XR chest 1V portable [id number] Routine Exams 11/25/21 05:06 Completed XR chest 1V portable [id number] Stat Exams 11/07/21 07:22 Completed MR head wo con* [id number] Urgent MRI 10/24/21 11:55 Completed CV. echo w/w bubble cont [id number] Routine Ultrasound 10/25/21 00:22 Completed SHANIQUE [CV. echo transesophageal 80211] Urgent Ultrasound 10/27/21 10:00 Completed US venous duplex lower extremity bilat [CV venous Ultrasound 10/25/21 08:11 [place] [id number]] Routine US venous duplex upper extremity bilater [CV venous Ultrasound 10/25/21 15:44 [place] [id number]] Routine Pending at discharge Category Date Time Status Drug Screen, Urine Routine Lab 11/25/21 05:06 Uncollected Lupus Inhibitor Panel Anticoag Routine Lab 10/25/21 08:32 Results Urinalysis Routine Lab 11/25/21 05:06 Uncollected Radiology Impressions Head/Neck CTA 10/24/21 11:26 IMPRESSION: 1. Occluded RIGHT M1 segment. Very small caliber vessel with no luminal enhancement. No acute thrombus was noted on the recent MRI or CT head. This may be due to spasm or congenitally small artery. The RIGHT A1 segment is also very small but there is still enhancement and it is patent. Etiologies to consider are thrombus, congenitally small artery, arteritis and spasm. 2. No cervical carotid artery stenosis. Head MRI 10/24/21 11:55 IMPRESSION: 1. Acute moderate size infarct in the RIGHT MCA territory involving the posterior RIGHT frontal lobe including the basal ganglia. No hemorrhage. No mass effect or evidence for mass on this unenhanced examination. 2. No hydrocephalus. Chest/Abdomen/Pelvis CT 10/25/21 10:35 IMPRESSION: 1. No pulmonary mass or nodule or adenopathy in the chest. Axillary lymph nodes are very minimally prominent. 2. No splenomegaly. 3. It would be difficult to exclude lymph nodes within the mesentery and retroperitoneum. There is confluent soft tissue which is probably nonopacified GI tract. There is no ascites or retroperitoneal adenopathy. 4. No osseous lesions. 5. Numerous collateral vessels around the RIGHT upper extremity shoulder and clavicle. No occlusions are identified. Consider ultrasound evaluation of the RIGHT upper extremity venous system. Partial thrombus may be present in the subclavian vein. Chest X-Ray 11/25/21 05:06 IMPRESSION: No acute findings. Head CT 11/25/21 16:05 IMPRESSION: 1. Late subacute to chronic lacunar infarcts with developing encephalomalacia when compared to prior scan. Small old left basal ganglia lacunar infarcts. 2. No acute intracranial injury or lesion Laboratory Results WBC 4.9 10^3/uL (4.0-10.0) 11/25/21 06:36 RBC 4.38 10^6/uL (4.1-5.3) 11/25/21 06:36 Hgb 13.9 g/dL (11.7-16.6) 11/25/21 06:36 Hct 37.9 % (42.0-52.0) L 11/25/21 06:36 MCV 86.5 fl (80-94) 11/25/21 06:36 MCH 31.7 pg (28.0-34.0) 11/25/21 06:36 MCHC 36.7 g/dL (30.0-36.0) H 11/25/21 06:36 RDW 11.9 % (12.1-15.1) L 11/25/21 06:36 Plt Count 252 10^3/cmm (130-400) 11/25/21 06:36 MPV 9.9 fL (7.4-10.4) 11/25/21 06:36 Neut % (Auto) 55.5 % 11/25/21 06:36 Lymph % (Auto) 32.6 % 11/25/21 06:36 [place] % (Auto) 10.7 % 11/25/21 06:36 Eos % (Auto) 0.4 % 11/25/21 06:36 Baso % (Auto) 0.2 % 11/25/21 06:36 Neut # (Auto) 2.69 10^3/uL (1.8-7.7) 11/25/21 06:36 Lymph # (Auto) 1.6 10^3/uL (0.8-4.8) 11/25/21 06:36 [place] # (Auto) 0.5 10^3/uL (0.2-0.9) 11/25/21 06:36 Eos # (Auto) 0.0 10^3/uL (0.0-0.8) 11/25/21 06:36 Baso # (Auto) 0.0 10^3/uL (0.0-0.1) 11/25/21 06:36 Nucleated RBC % (auto) 0 % 11/25/21 06:36 Nucleated RBCs # 0.0 /100WBC 11/25/21 06:36 PT 15.60 SECONDS (12.1-14.9) H 10/25/21 08:32 PT 37 sec (< OR = 45) 10/25/21 08:32 INR 1.21 (0.8-1.2) H 10/25/21 08:32 APTT 30.5 SECONDS (23.9-36.7) 10/25/21 08:32 APTT See note (NOT DETECTED) 10/25/21 08:32 Fibrinogen 236 mg/dL (174-498) 10/25/21 08:32 D-Dimer 3.99 ug/mIFEU (0-0.59) H 10/25/21 08:32 Lupus Anticoag aPTT 35 sec (< OR = 40) 10/25/21 08:32 Prot C Funct Activity 94 % (70-180) 10/25/21 08:32 Protein S Activity 62 % normal (70-150) L 10/25/21 08:32 Factor V Leiden Mutat Negative 11/01/21 11:30 Factor V Leiden Interp See below 11/01/21 11:30 Sodium 132 mmol/L (136-145) L 11/25/21 06:36 Potassium 4.3 mmol/L (3.5-5.1) 11/25/21 06:36 Chloride 96 mmol/L (98-107) L 11/25/21 06:36 Carbon Dioxide 28 mmol/L (22-29) 11/25/21 06:36 Anion Gap 12.3 (5-19) 11/25/21 06:36 BUN 13 mg/dL (6-20) 11/25/21 06:36 Creatinine 0.8 mg/dL (0.7-1.2) 11/25/21 06:36 GFR Calculation 141.4 mL/min (90-130) H 11/25/21 06:36 Glucose 96 mg/dL (65-115) 11/25/21 06:36 POC Glucose 159 mg/dL (70-110) H 11/03/21 20:59 Calculated Osmolality 274 mOsm/kg (285-295) L 11/25/21 06:36 Lactate 0.7 mmol/L (0.5-2.2) 11/07/21 09:26 Calcium 9.2 mg/dL (8.5-10.5) 11/25/21 06:36 Magnesium 2.0 mg/dL (1.7-2.3) 10/26/21 03:36 Total Bilirubin 0.4 mg/dL (0.15-1.2) 11/25/21 06:36 AST 19 U/L (0-40) 11/25/21 06:36 ALT 23 U/L (0-41) 11/25/21 06:36 Alkaline Phosphatase 65 IU/L (40-130) 11/25/21 06:36 Creatine Kinase 60 U/L (39-308) 10/27/21 03:36 Troponin T Baseline 6 ng/L (0-15) 10/24/21 20:22 Troponin T 120 Minute 7.62 ng/L (0-15) 10/25/21 01:57 Delta Troponin T 1.62 ABS# (0-10) 10/25/21 01:57 Troponin T Hi Sens 6Hr 6.36 ng/L (0-15) 10/25/21 06:07 Troponin T Hi Sens 6Hr Delta 0.36 ng/L (0-12) 10/25/21 06:07 C-Reactive Protein 3.0 mg/L (0.0-4.9) 11/08/21 04:51 Total Protein 7.9 g/dL (6.6-8.7) 11/25/21 06:36 Albumin 4.1 g/dL (3.5-5.2) 11/25/21 06:36 Globulin 3.8 g/dL (1.3-4.6) 11/25/21 06:36 Ceruloplasmin 31 mg/dL (18-36) 10/31/21 12:56 Triglycerides 106 mg/dL (0-150) 10/25/21 06:07 Cholesterol 122 mg/dL (0-200) 10/25/21 06:07 LDL Cholesterol, Calc 81 mg/dL (50-129) 10/25/21 06:07 HDL Cholesterol 20 mg/dL (60-100) L 10/25/21 06:07 LDL/HDL Ratio 4.05 RATIO (0.00-3.22) H 10/25/21 06:07 Cholesterol/HDL Ratio 6.10 mg/dL (1.0-5.00) H 10/25/21 06:07 Vitamin B12 329 pg/mL (232-1245) 10/24/21 20: Folate 13.2 ng/mL (4.5-32.2) 10/24/21 22: TSH 0.64 uIU/mL (0.27-4.20) 10/24/21: Procalcitonin 0.06 ng/mL (0-0.5) 11/07/21 09: Free T4 1.16 ng/dL (0.82-1.77) 10/24/21: Urine Color Dark yellow (Yellow) 10/24/21: Urine Appearance Clear (CLEAR) 10/24/21: Urine pH 6.5 (5-7) 10/24/21: Ur Specific [place] 1.015 (1.005-1.030) 10/24/21: Urine Protein Neg (Negative) 10/24/21: Urine Glucose (UA) Norm (Normal) 10/24/21: Urine Ketones 2+ (Negative) H 10/24/21: Urine Blood Neg (Negative) 10/24/21: Urine Nitrate Negative (Negative) 10/24/21: Urine Bilirubin 1+ (Negative) H 10/24/21 21: Urine Urobilinogen 4 mg/dL (Negative) H 10/24/21 21: Ur Leukocyte Esterase Trace (Negative) H 10/24/21 21: Urine RBC 0-4 /hpf (0-2) H 10/24/21 21: Urine WBC 25-40 /hpf (0-5) H 10/24/21 21: Ur Squamous Epith Cells 0-4 /hpf (0-5) H 10/24/21 21: Amorphous Sediment Not Reportable 10/24/21 21: Urine Bacteria Trace /hpf (NONE) 10/24/21 21:29 Urine Mucus 1+ /hpf 10/24/21 21:29 Urine Opiates Screen Negative ng/mL (Negative) 10/24/21 21:29 Ur Barbiturates Screen Negative ng/mL (Negative) 10/24/21 21:29 Ur Phencyclidine Scrn Negative ng/mL (Negative) 10/24/21 21:29 Ur Amphetamines Screen Negative ng/mL (Negative) 10/24/21 21:29 U Benzodiazepines Scrn Negative ng/mL (Negative) 10/24/21 21: Urine Cocaine Screen Negative ng/mL (Negative) 10/24/21 21: U Marijuana (THC) Screen Positive ng/mL (Negative) H 10/24/21 21: DERRICK Screen Negative (NEGATIVE) 10/25/21 08:32 Beta-2-GPI IgG Ab 5.0 U/mL (<20.0) 10/27/21 12:54 Beta-2-GPI IgA Ab <2.0 U/mL (<20.0) 10/27/21 12:54 Beta-2-GPI IgM Ab <2.0 U/mL (<20.0) 10/27/21 12:54 Anti-Cardiolipin IgG Ab 7.4 GPL-U/mL 10/25/21 08:32 Anti-Cardiolipin IgA Ab 2.8 APL-U/mL 10/25/21 08:32 Anti-Cardiolipin IgM Ab <2.0 MPL-U/mL 10/25/21 08:32 SARS-CoV-2 Ag (Rapid) Negative (Negative) 10/24/21 18:03 Vitals Last Vital Signs Temp 98.9 F 11/29/21 03:49 Pulse 80 11/29/21 03:49 Resp 18 11/29/21 03:49 BP 126/81 11/29/21 03:49 Pulse Ox 96 11/29/21 03:49 Discharge Plan Discharge Patient Disposition: er [facility] Condition: Stable Prescriptions: New methylphenidate HCl 10 mg Tablet 5 mg PO BID Qty: 60 0RF olanzapine 5 mg Tablet 2.5 mg PO BEDTIME Qty: 90 0RF escitalopram oxalate 10 mg Tablet 20 mg PO DAILY Qty: 90 0RF bupropion HCl 150 mg Tablet Extended Release 24 Hr 150 mg PO DAILY Qty: 90 0RF Eliquis 5 mg tablet 5 mg PO BID Qty: 120 1RF Discharge Orders: Discharge Order (Routine); Ordered 11/29/21 Ordered By: Josy Fontana Discharge Diet: Cardiac Discharge Activity: As per PT/OT instructions Patient Instructions: Bupropion (By mouth), Olanzapine (By mouth), Escitalopram (By mouth), Apixaban (By mouth), Methylphenidate, Biphasic (By mouth), Ischemic Stroke (DC), Self Care Measures After a Stroke (DC), Opioid Safety Discharge Attestations Time Spent in Discharge Care*: less than 30 min Quality Metrics Clinical Quality Measures [ No reported AMI, CVA or VTE this stay] Coding Level of Care Code Acute Chg FW DC note Diagnoses Abulia R68.89 Adjustment disorder with mixed disturbance of emotions and conduct F43.25 Fever R50.9 Depression F32.A Cerebral vascular disease I67.9 Acute right arterial ischemic stroke, middle cerebral artery (MCA) I63.511 DVT (deep venous thrombosis) I82.409 Stroke I63.9
[2021-11-29 07:13] VITALS: BP 126/82; PULSE 98
--- NOTE | 2021-11-29 11:26 | PC.NURSE ---
Pt to be transferred to [facility] in [place], [place]. 0945 Report given to Kade ALONSO. 0933 Ambulance here for transport.
[2021-11-29 14:37] VITALS: BP 126/82; PULSE 98
== END 2021-11-29 09:30 | DRG 64 ==
LOC: ER 13:56 → MEDSURG 14:29 → ER 20:33 → MEDSURG 21:27
PROVIDERS: Internal Medicine; Admitting Provider Internal Medicine; Emergency Provider Emergency Medicine; Visit Provider Internal Medicine
PROC: B24BZZ4 Ultrasonography of Heart with Aorta, Transesophageal (ICD-10-PCS; CPT 93312; principal; 2021-10-27 08:30)
DX: I63.411 Cerebral infarction due to embolism of right middle cerebral artery (principal); G93.6 Cerebral edema; G81.94 Hemiplegia, unspecified affecting left nondominant side; I82.813 Embolism and thrombosis of superficial veins of lower extremities, bilateral; I82.613 Acute embolism and thrombosis of superficial veins of upper extremity, bilateral; D68.59 Other primary thrombophilia; R29.810 Facial weakness; R47.81 Slurred speech; R29.708 NIHSS score 8; F17.200 Nicotine dependence, unspecified, uncomplicated; Z86.73 Personal history of transient ischemic attack (TIA), and cerebral infarction without residual deficits; I67.9 Cerebrovascular disease, unspecified; F32.A Depression, unspecified; F43.25 Adjustment disorder with mixed disturbance of emotions and conduct; R00.0 Tachycardia, unspecified; R50.9 Fever, unspecified; E86.0 Dehydration; W18.30XA Fall on same level, unspecified, initial encounter; Y93.9 Activity, unspecified; Y92.230 Patient room in hospital as the place of occurrence of the external cause
CPT/HCPCS: 36415; 36416; 70450; 70496; 70498; 70551; 71045; 71260; 74177; 80048; 80053; 80061; 80306; 81001; 81241; 82390; 82550; 82607; 82746; 82962; 83605; 83735; 84145; 84439; 84443; 84484; 85025; 85049; 85303; 85306; 85378; 85384; 85610; 85613; 85730; 86038; 86140; 86146; 86147; 87040; 87086; 87150; 87205; 87426; 92507; 92523; 92526; 92610; 93005; 93312; 93320; 93325; 93970; 97110; 97112; 97116; 97161; 97166; 97530; 97535; 99285; C8929; J2704; J7030; Q9967